=== PATIENT | male | born 1960 | race Caucasian/White ===

== ENCOUNTER 2018-09-30 09:27 | Observation (INO) | payer OTHER ==
[2018-09-30] VITALS (11 sets, daily range): BP systolic 112–153; BP diastolic 55–72
[~2018-09-30] VITALS: Ht 170.2 cm; Wt 127.0 kg
--- OUTSIDE RECORDS SUMMARY | 2018-09-30 09:29 | XMS REPORT | Clinical Summary ---
Author Author DEVAN [facility] Address Unknown Phone Unavailable Care Team Providers Care Supervisor Metal Hanging Name Role Phone Juwan Tate MD PCP Unavailable Allergies No Known Allergies Medications End Date Status Medication Sig Dispensed Refills Start Date Active atorvastatin (LIPITOR) 40 Take 40 mg by 0 MG tablet mouth daily. Active fenofibrate Take 48 mg by 0 (TRIGLIDE,LOFIBRA) 160 MG mouth daily . tablet Active glimepiride (AMARYL) 4 MG Take 4 mg by 0 tablet mouth 2 (two) times daily. Active hydrALAZINE (APRESOLINE) Take 100 mg 0 100 MG tablet by mouth 3 (three) times daily . Active labetalol (NORMODYNE) 300 Take 300 mg 0 MG tablet by mouth 2 (two) times daily. Active LIRAGLUTIDE (VICTOZA Inject 1.25 0 SUBQ) Units subcutaneousl y daily. Active aspirin 81 MG EC tablet Take 1 tablet 90 tablet 0 (81 mg total) 5 by mouth daily. Active acetaminophen-codeine Take 1 tablet 0 (TYLENOL #3) 300-30 mg by mouth per tablet every 4 (four) hours as needed for Pain. Active cloNIDine (CATAPRES-TTS) Place 1 patch 0 0.3 mg/24 hr patch onto the skin once a week. Active FLUoxetine (PROZAC) 40 MG Take 40 mg by 0 capsule mouth daily. Active isosorbide mononitrate Take 60 mg by 0 (IMDUR) 60 MG 24 hr mouth daily. tablet Active losartan-hydroCHLOROthiaz Take 1 tablet 0 codi (HYZAAR) 100-25 mg by mouth per tablet daily. Active mupirocin (BACTROBAN) 2 % Apply 0 ointment topically 3 (three) times daily. Active nitroglycerin (NITROSTAT) Place 0.4 mg 0 0.4 MG SL tablet under the tongue every 5 (five) minutes as needed for Chest pain Put 1 pill under tongue every 5min as needed for chest pain.No more than 3 doses in 15min.Call 911 if pain is unrelieved 5min after 1st dose . Active polyethylene glycol Take by mouth 0 (GOLYTELY) 236-22.74-6.74 once. -5.86 gram solution Active indomethacin (INDOCIN) 50 Take 50 mg by 0 MG capsuleIndications: mouth daily gout as needed. Active prasugrel (EFFIENT) 10 mg Take 1 tablet 90 tablet 0 Tab tablet (10 mg total) 7 by mouth daily. Active Problems Problem Noted Date Mild single current episode of major depressive disorder 10/11/2016 CKD stage 3 due to type 2 diabetes mellitus 10/11/2016 Recurrent exertional angina 01/25/2015 Abnormal nuclear cardiac imaging test 01-24-2015 01/25/2015 Type 2 diabetes mellitus with hyperlipidemia 01/23/2015 Coronary atherosclerosis 01/23/2015 Overview: UPDATED BY ICD10 SNOMED/IMO UPDATES Essential hypertension, benign 01/23/2015 Chest pain 01/22/2015 Overview: UPDATED BY ICD10 SNOMED/IMO UPDATES Immunizations Name Dates Previously Given Next Due Pneumococcal 01/23/2015 Polysaccharide (Pneumovax) Social History Date Tobacco Use Types Packs/Day Years Used Never Smoker Alcohol Use Drinks/Week oz/Week Comments No Sex Assigned at Date Recorded Not on file Industry Job Start Date Occupation Not on file Not on file Not on file Travel End Travel History Travel Start No recent travel history available. Last Filed Vital Signs Not on file Plan of Treatment Not on file Implants Device Identifier Shelf Expiration Date Model / Serial / Lot Implanted Type [facility] er 06/22/2017 [id number] - 18 / / [id number] Xience Alpine Otw CHEUNG Implanted: Qty: 1 on 01/06/2015 VASCULAR DEVICE Results Not on fileafter 09/29/2017 Insurance Payer Benefit Subscriber ID Type Phone Address Plan / Group CIGNA - MGD CARE CIGNA [facility] xxxxxxxxxxx HMO/POS NETWORK Advance Directives For more information, please contact: [facility] [address] [place] [address] Date Inactivated Comments Code Status Date Activated 01/25/2015 8:40 PM Full Code 01/22/2015 3:28 PM This code status was determined by: Patient 01/08/2015 2:56 PM Full Code 01/07/2015 1:50 AM This code status was determined by: Patient 07/23/2013 7:30 PM All possible means of support, including: cardiac massage, mechanical ventilation, and defibrillation will be used to support life. Code ONE 07/23/2013 9:56 AM
--- OUTSIDE RECORDS SUMMARY | 2018-09-30 09:30 | XMS REPORT ---
Author Author [facility] Address Unknown Phone Unavailable Care Team Providers Care Food Service Manager Name Role Phone Dunia ARIAS Unavailable Unavailable Payers Payer Name Policy Type Policy Number Effective Date Expiration Date Problems This patient has no known problems. Allergies, Adverse Reactions, Alerts Allergy Name Allergy Type Status Severity Reaction(s) Onset Date Inactive Date Treating Clinician Comments No Known Allergies DA Active U 2018-03-05 00:00:00 No Known Allergies DA Active U 2017-10-24 00:00:00 Medications This patient has no known medications. Results Test Description Test Time Test Comments Text Results Atomic Results Result Comments POCT-GLUCOSE METER 2016-10-13 16:49:00 POC-GLUCOSE METER (BEAKER) (test suor=8936) 226 mg/dL 70-110 TESTED AT [address] [address] POCT-GLUCOSE [id number] 13:00:00* Test Item Value Reference Range Comments POC-GLUCOSE METER (BEAKER) (test lgvf=9299) 174 mg/dL 70-110 TESTED AT [address] [address] POCT-GLUCOSE [id number] 09:24:00* Test Item Value Reference Range Comments POC-GLUCOSE METER (BEAKER) (test irwz=9006) 193 mg/dL 70-110 TESTED AT [address] [address] POCT-GLUCOSE [id number] 21:03:00* Test Item Value Reference Range Comments POC-GLUCOSE METER (BEAKER) (test prtc=6013) 164 mg/dL 70-110 TESTED AT [address] [address] POCT-GLUCOSE [id number] 13:24:00* Test Item Value Reference Range Comments POC-GLUCOSE METER (BEAKER) (test ekup=4171) 160 mg/dL 70-[address] [facility] [address] [facility] [address] HEMOGLOBIN [id number] 08:11:00* Test Item Value Reference Range Comments HEMOGLOBIN A1C (BEAKER) (test otvc=825) 9.7 % 4.3-6.1 POCT-GLUCOSE [id number] 07:55:00* Test Item Value Reference Range Comments POC-GLUCOSE METER (BEAKER) (test ifjl=0089) 197 mg/dL 70-[address] [facility] [address] [facility] [address] TSH/FREE T4 IF [id number] 05:37:00* Test Item Value Reference Range Comments THYROID STIMULATING HORMONE (BEAKER) (test enly=089) 1.77 uIU/mL 0.35-4.94 TROPONIN [id number] 05:15:00* Test Item Value Reference Range Comments TROPONIN I (BEAKER) (test dllu=733) 0.01 ng/mL 0.00-0.03 Effective 03/31/2014: Reference Range ChangeNew: 0.00-0.03 Previous 0.00-0.15T roponin I (TnI) levels must be interpreted in the context of the presenting symp toms and the clinical findings. Elevated TnI levels indicate myocardial damage, but are not specific for ischemic heart disease. Elevated TnI levels are seen in patients with other cardiac conditions (including myocarditis and congestive he art failure), and slight TnI elevations occur in patients with other conditions, including sepsis, renal failure, acidosis, acute neurological disease, and pers istent tachyarrhythmia.COMPREHENSIVE METABOLIC [id number] 05:14:00* Test Item Value Reference Range Comments TOTAL PROTEIN (BEAKER) (test zjpz=902) 5.8 gm/dL 6.0-8.3 ALBUMIN (BEAKER) (test bfpi=5751) 3.5 g/dL 3.5-5.0 ALKALINE PHOSPHATASE (BEAKER) (test nclx=632) 61 U/L 40-150 BILIRUBIN TOTAL (BEAKER) (test zcje=496) 0.3 mg/dL 0.2-1.2 SODIUM (BEAKER) (test ucxa=183) 138 meq/L 136-145 POTASSIUM (BEAKER) (test zjip=651) 4.0 meq/L 3.5-5.1 CHLORIDE (BEAKER) (test bzjk=441) 103 meq/L 98-107 CO2 (BEAKER) (test hodb=674) 25 meq/L 22-29 BLOOD UREA NITROGEN (BEAKER) (test nlcn=744) 29 mg/dL 7-21 CREATININE (BEAKER) (test rxdw=462) 1.77 mg/dL 0.57-1.25 GLUCOSE RANDOM (BEAKER) (test nlon=678) 206 mg/dL 70-105 CALCIUM (BEAKER) (test sccy=895) 9.2 mg/dL 8.4-10.2 AST (SGOT) (BEAKER) (test rkgn=639) 54 U/L 5-34 ALT (SGPT) (BEAKER) (test nsij=260) 46 U/L 6-55 EGFR (BEAKER) (test gtmp=5891) 40 mL/min/1.73 sq m ESTIMATED GFR IS NOT ACCURATE CREATININE CLEARANCE IN PREDICTING GLOMERULAR FILTRATION RATE. ESTIMATED GFR IS NOT APPLICABLE FOR DIALYSIS PATIENTS. LIPID [id number] 05:14:00* Test Item Value Reference Range Comments TRIGLYCERIDES (BEAKER) (test peqy=425) 448 mg/dL CHOLESTEROL (BEAKER) (test hjvn=838) 219 mg/dL HDL CHOLESTEROL (BEAKER) (test egvf=648) 26 mg/dL Calculated LDL not valid if triglyceride >400 mg/dLTriglyceride Reference Range: Low Risk <150 Borderline 150-199 High Risk 200-499 Very High Risk >=500Cholesterol Reference Range: Low Risk <200 Borderline 200-239 High Risk >240HDL Cholesterol Reference Range: Low Risk >=60 High Risk <40LDL Cholesterol Reference Range: Optimal <100 Near Optimal 100-129 Borderline 130-159 High 160-189 Very High >=190 CBC W/PLT COUNT & AUTO DIFFERENTIAL 2016-10-12 05:11:00* Test Item Value Reference Range Comments WHITE BLOOD CELL COUNT (BEAKER) (test knyv=660) 6.4 K/ L 4.0-10.0 RED BLOOD CELL COUNT (BEAKER) (test ymlb=079) 4.10 M/ L 4.20-5.80 HEMOGLOBIN (BEAKER) (test dxig=531) 12.6 GM/DL 13.0-16.8 HEMATOCRIT (BEAKER) (test yxfd=434) 37.9 % 40.0-50.0 MEAN CORPUSCULAR VOLUME (BEAKER) (test zqxu=224) 92.3 fL 82.0-98.0 MEAN CORPUSCULAR HEMOGLOBIN (BEAKER) (test rcoj=860) 30.8 pg 27.0-33.0 MEAN CORPUSCULAR HEMOGLOBIN CONC (BEAKER) (test ednx=252) 33.3 GM/DL 32.0-36.0 RED CELL DISTRIBUTION WIDTH (BEAKER) (test iaup=186) 13.1 % 10.3-14.2 PLATELET COUNT (BEAKER) (test qkuf=517) 127 K/CU MM 150-430 MEAN PLATELET VOLUME (BEAKER) (test jwqi=145) 8.6 fL 6.5-10.5 NUCLEATED RED BLOOD CELLS (BEAKER) (test dqaz=576) 0 /100 WBC 0-0 NEUTROPHILS RELATIVE PERCENT (BEAKER) (test szcq=153) 65 % LYMPHOCYTES RELATIVE PERCENT (BEAKER) (test udjb=460) 23 % MONOCYTES RELATIVE PERCENT (BEAKER) (test ktcl=804) 9 % EOSINOPHILS RELATIVE PERCENT (BEAKER) (test kglx=156) 3 % BASOPHILS RELATIVE PERCENT (BEAKER) (test xamv=283) 0 % NEUTROPHILS ABSOLUTE COUNT (BEAKER) (test ktbu=456) 4.20 K/ L 1.80-8.00 LYMPHOCYTES ABSOLUTE COUNT (BEAKER) (test rnqb=432) 1.45 K/ L 1.48-4.50 MONOCYTES ABSOLUTE COUNT (BEAKER) (test hszr=784) 0.58 K/ L 0.00-1.30 EOSINOPHILS ABSOLUTE COUNT (BEAKER) (test tycs=095) 0.16 K/ L 0.00-0.50 BASOPHILS ABSOLUTE COUNT (BEAKER) (test oxwq=790) 0.03 K/ L 0.00-0.20 [id number] 05:06:00* Test Item Value Reference Range Comments PARTIAL THROMBOPLASTIN TIME (BEAKER) (test jbib=710) 24.6 seconds 22.5-36.0 PROTHROMBIN [id number] 05:05:00* Test Item Value Reference Range Comments PROTIME (BEAKER) (test uqrt=023) 14.0 seconds 11.7-14.7 INR (MAL) (test kcqk=768) 1.1 <=5.9 RECOMMENDED COUMADIN/WARFARIN INR THERAPY RANGESSTANDARD DOSE: 2.0 - 3.0 Inclu shankar: PROPHYLAXIS for venous thrombosis, systemic embolization; TREATMENT for santo ous thrombosis and/or pulmonary embolus.HIGH RISK: Target INR is 2.5-3.5 for pat ients with mechanical heart valves.CREATINE KINASE (CK), TOTAL AND [id number] 23:26:00* Test Item Value Reference Range Comments CREATINE KINASE TOTAL (MAL) (test lmfh=766) 64 U/L 29-200 CREATINE KINASE-MB (WESLEYAKER) (test util=855) 2.0 ng/mL 0.0-6.6 CREATINE KINASE-MB INDEX (MAL) (test hewq=210) 3.1 % Effective 03/31/2014: CK-MB Reference Range ChangeNew: 0.0-6.6 Previous: 0.0- 4.9CK-MB Reference Range:<6.7 Normal6.7-10.0 Borderline>10.0 Abnormal TROPONIN [id number] 23:26:00* Test Item Value Reference Range Comments TROPONIN I (MAL) (test acoo=054) 0.01 ng/mL 0.00-0.03 Effective 03/31/2014: Reference Range ChangeNew: 0.00-0.03 Previous 0.00-0.15T roponin I (TnI) levels must be interpreted in the context of the presenting symp toms and the clinical findings. Elevated TnI levels indicate myocardial damage, but are not specific for ischemic heart disease. Elevated TnI levels are seen in patients with other cardiac conditions (including myocarditis and congestive he art failure), and slight TnI elevations occur in patients with other conditions, including sepsis, renal failure, acidosis, acute neurological disease, and pers istent tachyarrhythmia.POCT-GLUCOSE [id number] 21:08:00* Test Item Value Reference Range Comments POC-GLUCOSE METER (MAL) (test gyaw=5449) 158 mg/dL 70-[address] [facility] [address] [facility] [address] CREATINE KINASE (CK), TOTAL AND [id number] 18:27:00* Test Item Value Reference Range Comments CREATINE KINASE TOTAL (BEAKER) (test auph=253) 69 U/L 29-200 CREATINE KINASE-MB (BEAKER) (test xmuf=910) 2.0 ng/mL 0.0-6.6 CREATINE KINASE-MB INDEX (BEAKER) (test yqzn=705) 2.9 % Effective 03/31/2014: CK-MB Reference Range ChangeNew: 0.0-6.6 Previous: 0.0- 4.9CK-MB Reference Range:<6.7 Normal6.7-10.0 Borderline>10.0 Abnormal TROPONIN [id number] 18:27:00* Test Item Value Reference Range Comments TROPONIN I (BEAKER) (test appg=878) 0.01 ng/mL 0.00-0.03 Effective 03/31/2014: Reference Range ChangeNew: 0.00-0.03 Previous 0.00-0.15T roponin I (TnI) levels must be interpreted in the context of the presenting symp toms and the clinical findings. Elevated TnI levels indicate myocardial damage, but are not specific for ischemic heart disease. Elevated TnI levels are seen in patients with other cardiac conditions (including myocarditis and congestive he art failure), and slight TnI elevations occur in patients with other conditions, including sepsis, renal failure, acidosis, acute neurological disease, and pers istent tachyarrhythmia.B-TYPE NATRIURETIC FACTOR (BNP)2016-10-11 18:27:00* Test Item Value Reference Range Comments B-TYPE NATRIURETIC PEPTIDE (BEAKER) (test xndc=056) 34 pg/mL 0-100 [id number] 18:21:00* Test Item Value Reference Range Comments MAGNESIUM (BEAKER) (test fouc=216) 1.7 mg/dL 1.6-2.6 Specimen slightly hemolyzed BASIC METABOLIC [id number] 18:21:00* Test Item Value Reference Range Comments SODIUM (BEAKER) (test nlwi=481) 140 meq/L 136-145 POTASSIUM (BEAKER) (test azce=965) 4.2 meq/L 3.5-5.1 Specimen slightly hemolyzed CHLORIDE (BEAKER) (test qqmz=255) 104 meq/L 98-107 CO2 (BEAKER) (test njvg=928) 23 meq/L 22-29 BLOOD UREA NITROGEN (BEAKER) (test pytf=015) 26 mg/dL 7-21 CREATININE (BEAKER) (test gayo=173) 1.68 mg/dL 0.57-1.25 Specimen slightly hemolyzed GLUCOSE RANDOM (BEAKER) (test hkfk=300) 129 mg/dL 70-105 CALCIUM (BEAKER) (test aouz=782) 9.7 mg/dL 8.4-10.2 EGFR (BEAKER) (test aakg=0368) 42 mL/min/1.73 sq m ESTIMATED GFR IS NOT ACCURATE CREATININE CLEARANCE IN PREDICTING GLOMERULAR FILTRATION RATE. ESTIMATED GFR IS NOT APPLICABLE FOR DIALYSIS PATIENTS. PT/[id number] 18:13:00* Test Item Value Reference Range Comments PROTIME (BEAKER) (test ylrf=892) 13.0 seconds 11.7-14.7 INR (BEAKER) (test lwlf=663) 1.0 <=5.9 PARTIAL THROMBOPLASTIN TIME (BEAKER) (test wdxv=393) 25.7 seconds 22.5-36.0 RECOMMENDED COUMADIN/WARFARIN INR THERAPY RANGESSTANDARD DOSE: 2.0 - 3.0 Inclu shankar: PROPHYLAXIS for venous thrombosis, systemic embolization; TREATMENT for santo ous thrombosis and/or pulmonary embolus.HIGH RISK: Target INR is 2.5-3.5 for pat ients with mechanical heart valves.CBC W/PLT COUNT & AUTO [id number] 18:02:00* Test Item Value Reference Range Comments WHITE BLOOD CELL COUNT (BEAKER) (test kzcd=913) 7.6 K/ L 4.0-10.0 RED BLOOD CELL COUNT (BEAKER) (test stef=810) 4.60 M/ L 4.20-5.80 HEMOGLOBIN (BEAKER) (test eejc=367) 13.5 GM/DL 13.0-16.8 HEMATOCRIT (BEAKER) (test ttdb=146) 42.1 % 40.0-50.0 MEAN CORPUSCULAR VOLUME (BEAKER) (test iuwf=671) 91.4 fL 82.0-98.0 MEAN CORPUSCULAR HEMOGLOBIN (BEAKER) (test gnqs=031) 29.4 pg 27.0-33.0 MEAN CORPUSCULAR HEMOGLOBIN CONC (BEAKER) (test zqbi=467) 32.1 GM/DL 32.0-36.0 RED CELL DISTRIBUTION WIDTH (BEAKER) (test lozs=011) 14.8 % 10.3-14.2 PLATELET COUNT (BEAKER) (test zyrl=535) 142 K/CU MM 150-430 MEAN PLATELET VOLUME (BEAKER) (test vkkd=734) 8.3 fL 6.5-10.5 NUCLEATED RED BLOOD CELLS (BEAKER) (test czmj=666) 0 /100 WBC 0-0 NEUTROPHILS RELATIVE PERCENT (BEAKER) (test tnqn=464) 64 % LYMPHOCYTES RELATIVE PERCENT (BEAKER) (test lllw=635) 25 % MONOCYTES RELATIVE PERCENT (BEAKER) (test wylp=442) 9 % EOSINOPHILS RELATIVE PERCENT (BEAKER) (test fbln=184) 2 % BASOPHILS RELATIVE PERCENT (BEAKER) (test pnrt=925) 1 % NEUTROPHILS ABSOLUTE COUNT (BEAKER) (test bles=560) 4.85 K/ L 1.80-8.00 LYMPHOCYTES ABSOLUTE COUNT (BEAKER) (test lzxw=097) 1.91 K/ L 1.48-4.50 MONOCYTES ABSOLUTE COUNT (BEAKER) (test jkgw=454) 0.66 K/ L 0.00-1.30 EOSINOPHILS ABSOLUTE COUNT (BEAKER) (test mgvf=655) 0.17 K/ L 0.00-0.50 BASOPHILS ABSOLUTE COUNT (BEAKER) (test sdlw=327) 0.05 K/ L 0.00-0.20 0.00
[2018-09-30] MEDS ORDERED: ASPIRIN 81 MG CHEW TAB PO STA (10:06)
[2018-09-30] MEDS ORDERED: ASPIRIN 81 MG CHEW TAB PO ONE ×2 (10:15→17:15)
[2018-09-30] MEDS ORDERED: SODIUM CHLORIDE 0.9% 1000ML 1,000 ML ONE ×2 (10:29→17:37)
[2018-09-30 10:30] LABS: BASOPHILS % 0.5 % (0.0-1.0); EOSINOPHILS # (AUTO) 0.2 (0.0-0.4); HEMATOCRIT 38.2 % (38.2-49.6); HEMOGLOBIN 12.6 g/dL (14.0-18.0); LYMPHOCYTES # (AUTO) 1.1 (1.0-3.2); LYMPHOCYTES % 11.9 % (18.0-39.1); MEAN CORPUSCULAR HEMOGLOBIN 29.6 pg (28-32); MEAN CORPUSCULAR VOLUME 89.7 fL (81-99); MONOCYTES # (AUTO) 0.7 (0.2-0.8); MONOCYTES % 8.3 % (4.4-11.3); NEUTROPHILS # (AUTO) 6.7 (2.1-6.9); NEUTROPHILS % 76.4 % (38.7-80.0); PLATELET COUNT 195 x10e3/uL (140-360); RED BLOOD COUNT 4.26 x10e6/uL (4.3-5.7); RED CELL DISTRIBUTION WIDTH 14.8 % (11.7-14.4)
[2018-09-30 10:40] LABS: INR 1.05; PROTHROMBIN TIME 14.2 seconds (11.9-14.5)
[2018-09-30 10:41] LABS: PARTIAL THROMBOPLASTIN TIME 26.5 seconds (23.8-35.5)
[2018-09-30] MEDS ORDERED: SODIUM CHLORIDE 0.9% 1000ML 1,000 ML IV ONE (10:45)
--- NOTE | 2018-09-30 11:01 | Diagnostic Imaging Report ---
EXAMINATION: CHEST SINGLE (PORTABLE) INDICATION: Chest pain. COMPARISON: None FINDINGS: TUBES and LINES: None. LUNGS: Lungs are well inflated. There is no evidence of pneumonia or pulmonary edema. Calcified granulomas in the right lung. PLEURA: No pleural effusion or pneumothorax. HEART AND MEDIASTINUM: The cardiomediastinal silhouette is unremarkable. BONES AND SOFT TISSUES: No acute osseous abnormality. UPPER ABDOMEN: No free air under the diaphragm. IMPRESSION: No acute radiographic abnormality. Signed by: Dr. Pablo Kelly MD on 09/30/2018 10:58 AM
[2018-09-30 11:17] LABS: ALBUMIN 3.3 g/dL (3.5-5.0); ALBUMIN/GLOBULIN RATIO 1.3 (0.8-2.0); ANION GAP 14.1 mmol/L (8-16); CALCIUM 8.6 mg/dL (8.4-10.2); CREATININE, SERUM 2.61 mg/dL (0.72-1.25); POTASSIUM 4.1 mmol/L (3.5-5.1)
[2018-09-30 11:23] LABS: CREATINE KINASE MB 1.6 ng/mL (0-5.0)
[2018-09-30] MEDS: SODIUM CHLORIDE 0.9% 1000ML 1,000 ML IV SCH ×2 (12:02→13:34)
[2018-09-30] MEDS ORDERED: DEXTROSE 50% SYRINGE 50 ML IV PRN (12:45)
[2018-09-30] MEDS ORDERED: ONDANSETRON HCL INJ 2MG/ML 2ML 2 MG/ML VIAL IV PRN ×2 (12:45→18:45)
[2018-09-30] MEDS ORDERED: NITROGLYCERIN 0.4 MG SUBL SL PRN (12:45)
[2018-09-30] MEDS ORDERED: MORPHINE SULFATE INJ 4 MG/ML INJ 1ML IV PRN (12:45)
[2018-09-30] MEDS: FAMOTIDINE 20 MG TAB PO SCH ×2 (13:06→23:26)
--- OUTSIDE RECORDS SUMMARY | 2018-09-30 13:27 | XMS REPORT | Clinical Summary ---
Author Author DEVAN [facility] Address Unknown Phone Unavailable Care Team Providers Care Formulator Compounder Name Role Phone Juwan Tate MD PCP [...] Lot Implanted Type [facility] er 06/22/2017 [id number] - 18 / / [id number] [employer]ience [employer]pine Otw CHEUNG Implanted: Qty: 1 on 01/06/2015 VASCULAR DEVICE Results Not on fileafter 09/29/2017 Insurance Payer Benefit Subscriber ID Type Phone Address Plan / Group [employer] - MGD CARE C[employer] [facility] xxxxxxxxxxx HMO/POS NETWORK Advance Directives For more information, please contact: [facility] [address] [place] [address] Date Inactivated Comments Code Status [...]
--- NOTE | 2018-09-30 14:05 | NUR ---
Recvd patient from ER. AAOx3, not in any distress, c/o mild chest pressure still rating 2/10, denies any SOB, Call light in reach, at bed side, keep monitoring
[2018-09-30] MEDS: INSULIN LISPRO 100 UNIT/1 ML 3ML VIAL SQ SCH ×2 (16:30→21:00)
[2018-09-30] MEDS ORDERED: INSULIN LISPRO 100 UNIT/1 ML 3ML VIAL SQ SCH (16:30)
[2018-09-30] MEDS ORDERED: SODIUM CHLORIDE 0.9% 1000ML 1,000 ML IV SCH ×2 (17:15→18:38)
[2018-09-30] MEDS ORDERED: MIDAZOLAM HCL 2 MG/2 ML VIAL ONE (17:36)
[2018-09-30] MEDS ORDERED: FENTANYL CITRATE/PF 100MCG/2 ML INJ ONE (17:36)
[2018-09-30] MEDS ORDERED: LIDOCAINE HCL 2% LOCAL 20 ML VIAL ONE (17:36)
[2018-09-30] MEDS ORDERED: HEPARIN SOD/SOD CHLORIDE 2,000 ML ONE (17:37)
[2018-09-30] MEDS ORDERED: IOPAMIDOL 370 MG/ML 200 ML INFUS..BTL INJ ONE (17:37)
[2018-09-30 17:59] LABS: BASOPHILS % 0.3 % (0.0-1.0); EOSINOPHILS # (AUTO) 0.2 (0.0-0.4); EOSINOPHILS % 2.2 % (0.0-6.0); HEMATOCRIT 35.3 % (38.2-49.6); HEMOGLOBIN 11.7 g/dL (14.0-18.0); LYMPHOCYTES # (AUTO) 1.5 (1.0-3.2); LYMPHOCYTES % 22.7 % (18.0-39.1); MEAN CORPUSCULAR HGB CONC 33.1 g/dL (31-35); MEAN CORPUSCULAR VOLUME 90.5 fL (81-99); MONOCYTES # (AUTO) 0.6 (0.2-0.8); NEUTROPHILS # (AUTO) 4.4 (2.1-6.9); NEUTROPHILS % 65.1 % (38.7-80.0); PLATELET COUNT 146 x10e3/uL (140-360); RED CELL DISTRIBUTION WIDTH 14.9 % (11.7-14.4)
[2018-09-30] MEDS ORDERED: NITROGLYCERIN/D5W 200 MCG/ML 250 ML ONE (17:59)
[2018-09-30] MEDS ORDERED: HEPARIN SOD (PORCINE) 1000 UNIT/ML 30ML ONE (17:59)
[2018-09-30] MEDS ORDERED: VERAPAMIL HCL 2.5 MG/ML 2 ML VIAL ONE (18:00)
[2018-09-30 18:15] LABS: ALBUMIN 3.1 g/dL (3.5-5.0); ALBUMIN/GLOBULIN RATIO 1.2 (0.8-2.0); CALCIUM 8.2 mg/dL (8.4-10.2); CREATININE, SERUM 2.09 mg/dL (0.72-1.25)
[2018-09-30] MEDS ORDERED: SODIUM CHLORIDE 0.9% 50ML 50 ML ONE (18:15)
[2018-09-30] MEDS ORDERED: BIVALRIUDIN 250 MG/VIAL VIAL IV ONE (18:15)
[2018-09-30 18:20] LABS: CREATINE KINASE 82 IU/L (30-200)
[2018-09-30] MEDS ORDERED: ASPIRIN 81 MG CHEW TAB ONE (18:32)
[2018-09-30] MEDS ORDERED: PRASUGREL 10 MG TAB ONE (18:32)
--- NOTE | 2018-09-30 18:40 | NUR ---
Continuity of care, transition to recovery from procedure , review of procedural findings and medications given. Patient drowsy, easily aroused. maintains airway and room air saturations of 94-96%. No gross issues of pressure, pain, pallor or dysrhythmia. IV site patent with NS 0.9% at 150ml/hr by dial-flow. patient hemodynamically stable with hemostasis. right radial w/ TR band @ 15ml to bladder. CDI w/o s/s of bleeding. patient transferred to stretcher under own strength w/o incident. transported to [facility] holding ACU 10. Pt has CATIA, will continue to apply oxygen. family brought to bedside - [facility] procedure: Coronary stent left main Sheath puller: Dr. Chelle Aquino TR band Large w/ 15ml air to bladder Meds Given Intra-Procedure Sedatives Versed - 2 mg Fentanyl - 25 mcg Anticoagulants Angiomax - 15ml (75mg) as a single bolus, no gtt Radial Cocktail Heparin 3000 units IA Nitro 200mcg IA Verapamil 2.5mg IA Fluids Input - 350 ml Output - dtv Contrast Isovue 370 - 90ml Other Meds Effient 30mg PO Aspirin 81mg PO
[2018-09-30] MEDS ORDERED: ZOLPIDEM TARTRATE 5 MG TAB PO PRN (18:45)
[2018-09-30] MEDS ORDERED: HYDROCODONE/APAP 5MG-325MG TAB PO PRN (18:45)
--- NOTE | 2018-09-30 19:50 | NUR ---
3 ml removed from TR band. Pt continues to rest w/ eyes closed and snoring. observe saturations fluctuate from 78-100% while on 4L/nc with irregular respirations. at bedside confirms pt has sleep apnea and this is "normal". no gross distress
--- NOTE | 2018-09-30 20:00 | NUR ---
3 ml removed from TR band.
--- NOTE | 2018-09-30 20:10 | NUR ---
3 ml removed from TR band.
--- NOTE | 2018-09-30 20:20 | NUR ---
3 ml removed from TR band.
--- NOTE | 2018-09-30 20:35 | NUR ---
TR band removed. Dressing applied. Radial brace reapplied to minimize sleep while sleeping per patient request. + neurovascular function to right hand.
--- NOTE | 2018-09-30 20:45 | NUR ---
Pt meets DC criteria. right radial assessed for s/s of complication and presence of hematoma. right arm warm, dry, no discolor, and pulses present. IV 18g remains patent to right AC area. VS WNL x/ for CATIA patterns identified. Pt denies pain, sob, or need at this time. Family at bedside. Review of orders and plan of care. verbalized understanding. Pt to room 198 on bed being monitored. Report provided to Higinio GAMBINO. Review of body systems on arrival. pt appropriate. right radial remains intact. family at bedside. transfer of care. - cgf
[2018-09-30] MEDS ORDERED: ATORVASTATIN 20 MG TAB PO SCH ×2 (21:00)
[2018-09-30] MEDS ORDERED: ATORVASTATIN 40 MG TAB PO SCH (21:00)
[2018-09-30] MEDS ORDERED: METOPROLOL TARTRATE 25 MG TAB PO SCH (21:00)
--- NOTE | 2018-09-30 21:30 | NUR ---
patient came from pacu, with hospital bed, patient eyes closed but able to answer questions, on bed side, no distress noted, vitals checked, right wrist dressing checked, no s/s of bleeding. will continue to monitor.
--- NOTE | 2018-09-30 21:45 | NUR ---
called and spoke with dr Palacios, made him aware patient is in IMCU and the MD agreed to resume patient's meds and diet.
[2018-09-30] MEDS: HEPARIN SOD (PORCINE) 5,000 UNIT/ML VIAL SC SCH (21:50)
--- NOTE | 2018-09-30 22:26 | NUR ---
per reports, patient is using CPAP at home and was also confirmed by the patient and , but he refused CPAP when Rt was trying to put him on in prior sleeping.
--- NOTE | 2018-09-30 23:27 | NUR ---
patient awaken to take pepcid PO, he still refused to have CPAP on, he stated "my will bring CPAP from home."
[2018-10-01 00:05] VITALS: BP 172/77
--- NOTE | 2018-10-01 00:20 | Consultation ---
DATE OF CONSULTATION: 09/30/2018 Cardiac consultation. REASON FOR CONSULTATION: Unstable coronary syndrome, pending myocardial infarction. HISTORY: A 58-year-old gentleman, who is known with obesity, diabetes mellitus with end-organ damage, chronic renal insufficiency, hypertension, severe on multiple medication, chronic renal insufficiency, coronary artery disease. The patient in 2014 had PCI to be followed by myocardial infarction and redo PCI. He is followed in [facility] by Dr. Christie. He told me probably seven months ago his stress test was okay. However, the patient having typical exertional chest pressure, chest tightness for the last few months. Progressively worse for the last three weeks, just doing minimal activity, will have him to have severe chest pain with diaphoresis. Yesterday, he was not doing well. He had some nausea, vomiting with this chest pressure, chest tightness and had to lose bowel movement. Today, he went to work. He cannot do anything. He just moving everything and everything is heavy in his chest. The pain was very prolonged repetitive. He came to the emergency room. Lab at 10 o'clock showed normal cardiac enzymes. BUN at 31, creatinine of 2.6. The patient continued to have severe chest pressure, chest tightness. In view of that, urgent cardiac consultation is obtained. The patient is seen and evaluated approximately at 5:30 p.m. He is still having this severe chest pain. The patient describes typical symptoms of acute coronary syndrome, pending myocardial infarction possible or any myocardial infarction. His EKG showing ST-segment depression in several leads. Cardiac perez, the patient definitely having typical symptoms with diaphoresis, etc. He does have sleep apnea. He does have easy fatigability, shortness of breath and chest pressure on minimal activity. REVIEW OF SYSTEMS: Extensive to all systems, will be summarized for clarity. GENERAL: No fever, no chills. HEENT: Unremarkable. PULMONARY AND CARDIAC: As per acute illness. No recent travel. GASTROINTESTINAL: Bloating indigestion. Yesterday he had nausea, vomiting with the pain and he had two episodes of loose bowel movement. GENITOURINARY: The patient is noted to have chronic renal insufficiency. MUSCULOSKELETAL: Back pain, knee pain. NEUROLOGICAL: Tingling and numbness of the lower extremities. HOME MEDICATION: Very lengthy list. He does not have it on him including nifedipine, losartan, labetalol, hydralazine, insulin 120 unit Lantus and sliding scale, Lasix, and several other medications. ALLERGIES: NONE. PAST MEDICAL HISTORY: 1. Coronary artery disease status post myocardial infarction following PCI in 2014 and subsequently fixing this problem followed in [facility]. 2. Diabetes mellitus with end-organ damage. 3. Chronic renal insufficiency followed by Dr. Wheeler. 4. Hypertension. 5. Obesity. 6. All other health problem mentioned above. LABORATORY DATA: The patient's lad date is reviewed. BUN of 31, creatinine of 2.6. BNP is normal. White blood cell count of 8.8, hemoglobin 12.8, hematocrit 38%, platelet count of 195,000. IMPRESSION AND PLAN: 1. Acute coronary syndrome, possible [id number] myocardial infarction. 2. The patient is very unstable. 3. Diabetes mellitus with end-organ damage. 4. Chronic renal insufficiency. 5. Hyperlipidemia. 6. Morbid obesity. The patient will be taken urgently to the car barn laborer. Procedure risks, benefits, alternatives are discussed and explained. MD RAZA Cox/MODL /[id number]
[2018-10-01 00:42] VITALS: BP 159/73
--- NOTE | 2018-10-01 01:20 | Operative Report ---
DATE OF PROCEDURE: 09/30/2018 SURGEON: Heidi Aquino MD PROCEDURE PERFORMED: 1. Left heart cardiac catheterization, coronary angiography. 2. Percutaneous coronary intervention with drug-eluting stent placement to the culprit mid LAD. INDICATION FOR PROCEDURE: A 58-year-old gentleman, morbidly obese, hypertension, hypercholesteremia, coronary artery disease with prior history of PCI and stenting, as well as prior MS, who had outpatient abnormal stress test within the past year, who presents to this institution with class 4 angina occurring starting at work today and up on history, the patient continued to have low-level chest pressure tightness, heaviness, and has been having stuttering escalating angina over the past week. Due to ongoing chest pain symptoms, the patient was taken urgently to the cardiac catheterization laboratory. DESCRIPTION OF PROCEDURE: After risks, benefits, pros and cons to this procedure were explained, the patient agreed to proceed. The patient was brought to cardiac catheterization laboratory. The right wrist was prepped and draped in usual sterile fashion. Preprocedure Barbeau and Charles's tests were noted to be normal. 1% lidocaine solution was used to numb the right wrist region and access of the right radial artery was obtained and a 6-[place]ozamb[place] Terumo slender sheath was placed. Intra-arterial verapamil 2.5 mg and nitroglycerin 200 mcg were given through the sheath as well as 3000 units of intra-arterial heparin. We initially went up with a 5-Mozambican Blauvelt 4.0 diagnostic catheter and supported with a Gloria wire, we were able to again get into the aortic root. Selective coronary angiography of [place] right coronary artery was performed as well as hemodynamic assessment of ventricular filling pressures. After noting 95% hazy of the LAD lesion, which is clearly the culprit artery, we decided to proceed with intervention. We utilized an exchange 0.035 J-wire and went in with a 6-[place]ozamb[place] XB 3.5 guiding catheter with side holes. IV Angiomax bolus was given for systemic anticoagulation. Utilizing a 180 cm 0.014 Runthrough wire, we were able to successfully cross into the apical LAD way past the lesion. Next, we pre-dilated the lesion with a 2.5 x 15 mm Trek balloon for 14 atmospheres of pressure for 40 seconds. Then we took a Resolute Chon 3.0 x 26 mm drug-eluting stent and deployed it up to 17 atmospheres of pressure. Final angiography revealed 0% residual stenosis and improvement of flow from JEREMÍAS-2 to JEREMÍAS-3 and no complications. At the conclusion of the case, the guiding catheters were removed. The J-wire and a Terumo TR band was successfully deployed utilizing patent hemostasis technique. COMPLICATIONS: None. ESTIMATED BLOOD LOSS: Minimal. FINDINGS: 1. Left main is angiographically normal. It gives rise to an LAD, very small ramus intermedius and circumflex branch. 2. The LAD has a high takeoff of first diagonal branch with a proximal stent that is widely patent. The mid LAD has a thrombotic hazy 95% stenosis and is clearly the culprit lesion. 3. Left circumflex artery terminates into a moderate-sized marginal branch. There is a 40% mid circumflex artery stenosis. 4. RCA is dominant and gives rise to right PDA and right PLV branch. There is a 40% long disease segment in mid right RCA and a 50% proximal right PDA stenosis. 5. Left ventricular end-diastolic pressure is 22 mmHg and a significant LV to aortic pullback gradient. INTERVENTION SUMMARY: Successful treatment of the 95% hazy thrombotic mid LAD lesion with implantation of a Resolute [place] 3.0 x 26 mm drug-eluting stent, resulting in 0% residual stenosis and improvement in the flow from JEREMÍAS-2 to JEREMÍAS-3 and no complications. PLAN/RECOMMENDATIONS: 1. Aspirin and Effient therapy. 2. Statin therapy. 3. Aggressive risk factor modification and medical therapy. 4. Removal of TR band in approximately 2 hours. 5. Aggressive IV fluid and hydration post procedure. 6. Overnight hospital stay. MD ALFREDO Lozano/ALEKSANDR /[id number]
[2018-10-01 04:12] VITALS: BP 188/78
--- NOTE | 2018-10-01 04:39 | NUR ---
called and spoke with dr Aquino, made him aware that patient has elevated BP, the MD gave order for Nifedipine. order carried out.
[2018-10-01] MEDS ORDERED: NIFEDIPINE 10 MG CAP PO SCH (05:00)
[2018-10-01 05:02] LABS: BASOPHILS % 0.5 % (0.0-1.0); EOSINOPHILS # (AUTO) 0.2 (0.0-0.4); EOSINOPHILS % 3.3 % (0.0-6.0); HEMATOCRIT 37.3 % (38.2-49.6); HEMOGLOBIN 11.7 g/dL (14.0-18.0); LYMPHOCYTES # (AUTO) 1.8 (1.0-3.2); LYMPHOCYTES % 27.6 % (18.0-39.1); MEAN CORPUSCULAR HEMOGLOBIN 28.9 pg (28-32); MEAN CORPUSCULAR HGB CONC 31.4 g/dL (31-35); MEAN CORPUSCULAR VOLUME 92.1 fL (81-99); MONOCYTES # (AUTO) 0.7 (0.2-0.8); MONOCYTES % 10.3 % (4.4-11.3); NEUTROPHILS # (AUTO) 3.7 (2.1-6.9); NEUTROPHILS % 57.8 % (38.7-80.0); PLATELET COUNT 138 x10e3/uL (140-360); RED BLOOD COUNT 4.05 x10e6/uL (4.3-5.7); RED CELL DISTRIBUTION WIDTH 14.7 % (11.7-14.4)
[2018-10-01 05:35] LABS: ALBUMIN 3.1 g/dL (3.5-5.0); ALBUMIN/GLOBULIN RATIO 1.2 (0.8-2.0); ANION GAP 10.3 mmol/L (8-16); CALCIUM 8.7 mg/dL (8.4-10.2); CREATININE, SERUM 1.69 mg/dL (0.72-1.25); POTASSIUM 4.3 mmol/L (3.5-5.1)
[2018-10-01 05:45] VITALS: BP 141/76
[2018-10-01 06:42] LABS: CREATINE KINASE MB 1.7 ng/mL (0-5.0)
--- NOTE | 2018-10-01 06:59 | NUR ---
bedside reports given to upcoming nurse, patient is awaken, answers questions and no distress at this time.
[2018-10-01 07:00] VITALS: BP 169/85
--- NOTE | 2018-10-01 07:20 | NUR ---
Pt received from previous shift resting in bed. Alert and oriented x4 with saline lock patent to right AC receiving IV fluids as ordered. Pt with right radial immobilizer due to LHC. Oriented to staff and surrounding. Advised to press call mendiola if help needed. Will monitor
[2018-10-01] MEDS: INSULIN LISPRO 100 UNIT/1 ML 3ML VIAL SQ SCH ×2 (07:30→11:08)
--- NOTE | 2018-10-01 08:35 | NUR ---
All meds given as ordered. Call mendiola within reach. Emotional support given. Will monitor
[2018-10-01] MEDS: HEPARIN SOD (PORCINE) 5,000 UNIT/ML VIAL SC SCH (08:37)
[2018-10-01] MEDS ORDERED: METOPROLOL TARTRATE 25 MG TAB PO SCH (09:00)
[2018-10-01] MEDS ORDERED: PRASUGREL 10 MG TAB PO SCH ×2 (09:00)
[2018-10-01] MEDS ORDERED: NIFEDIPINE CR 30 MG TAB PO SCH (09:00)
[2018-10-01] MEDS ORDERED: ASPIRIN 81 MG ENTERIC COATED PO SCH (09:00)
[2018-10-01] MEDS ORDERED: COLCRYS0.6 MG PO (09:35)
[2018-10-01] MEDS ORDERED: PANTOPRAZOLE SO40 MG PO (09:35)
[2018-10-01] MEDS ORDERED: ISOSORBIDE MONO30 MG PO (09:35)
[2018-10-01] MEDS ORDERED: LIPITOR20 MG PO (09:35)
[2018-10-01] MEDS ORDERED: FUROSEMIDE10 MG/1 M1 PO (09:35)
[2018-10-01] MEDS ORDERED: BUPROPION XL150 MG PO (09:35)
[2018-10-01] MEDS ORDERED: LOSARTAN POTASS25 MG PO (09:35)
[2018-10-01] MEDS ORDERED: BASAGLAR SQ (09:35)
[2018-10-01] MEDS ORDERED: HYDRALAZINE HCL25 MG PO (09:35)
[2018-10-01] MEDS ORDERED: CYCLOBENZAPRINE10 MG PO (09:35)
[2018-10-01] MEDS ORDERED: EFFIENT10 MG PO (09:35)
[2018-10-01] MEDS ORDERED: CLONIDINE HCL0.3 MG TD (09:35)
[2018-10-01] MEDS ORDERED: GABAPENTIN300 MG PO (09:35)
[2018-10-01] MEDS ORDERED: TIZANIDINE HCL4 MG PO (09:35)
[2018-10-01] MEDS ORDERED: ASPIR 8181 MG (09:35)
[2018-10-01] MEDS ORDERED: NIFEDIPINE ER30 M1 PO (09:35)
[2018-10-01] MEDS ORDERED: LABETALOL HCL200 MG PO (09:35)
[2018-10-01] MEDS ORDERED: ALLOPURINOL300 MG PO (09:35)
[2018-10-01] MEDS ORDERED: DICLOFENAC POTA50 MG PO (09:35)
--- NOTE | 2018-10-01 09:57 | Diagnostic Imaging Report ---
Renal ultrasound. History: Elevated creatinine Discussion: Transverse and longitudinal images of the kidneys were obtained demonstrating normal echogenicities. Left kidney is situated within the pelvis. There is no evidence of hydronephrosis, mass or renal calculus. The right kidney measures 13.3 x 5.3 x 5.6 cm and the left kidney measures 8.6 x 5.2 x 5.4 cm. Maximal cortical thickness on the right side is 2.0 cm and on the left side 1.5 cm. Two dominant cysts are seen on the right side measuring maximal dimension of 1.8 cm in the upper pole and 2.8 cm in the upper pole-mid pole region. There are multiple cysts noted on the left side with the largest in the lower pole measuring 2.7 cm. The urinary bladder is unremarkable with an estimated prevoid volume of 111.81 cc. There is no evidence of free fluid. IMPRESSION: 1. Bilateral renal cysts with out evidence of hydronephrosis. 2. Left pelvic kidney which is small. Signed by: Dr. Oneil Smith DO on 10/01/2018 9:54 AM
[2018-10-01 11:06] VITALS: BP 152/91
[2018-10-01] MEDS ORDERED: ONDANSETRON HCL 4 MG ORAL DISINTEGRATING TAB PO PRN (11:30)
--- NOTE | 2018-10-01 11:53 | NUR ---
Pt given discharge instruction regarding meds, diet, activities, and follow up appointment with PCP & operations management professionals. Pt & family verbalized understanding of teaching. Being seen by Dr. Aquino & Curtis DRIVER. Will follow up
--- NOTE | 2018-10-01 12:27 | NUR ---
Took pt to 's car in wheelchair. Pt left with all belongings
--- NOTE | 2018-10-01 14:08 | Discharge Summary ---
PRIMARY CARE DOCTOR: Dr. Juwan Tate. FINAL DIAGNOSIS: Coronary artery disease status post PCI. SECONDARY DIAGNOSES: 1. Morbid obesity. 2. Stage 3 chronic kidney disease. 3. Hypertension. 4. Diabetes. 5. Dyslipidemia. CONSULTANTS: 1. Dr. Wheeler, Nephrology. 2. Dr. Aquino, Cardiology. PROCEDURES/STUDIES PERFORMED: 1. Echocardiogram shows normal EF. 2. Left heart catheterization with drug-eluting stent to the mid LAD. HISTORY: Per [facility] and P. HOSPITAL COURSE: The patient's history was concerning for acute coronary syndrome/unstable angina. His repeat troponins were negative. The patient was emergently taken to the laborer tan [facility], where a 95% mid LAD lesion was stented. The patient felt better afterwards. Fortunately, his creatinine remained stable, in fact a little better after hydration. The patient will continue his aspirin, Effient, and a statin along with a beta-gertrudis. The patient was seen and examined today. CONDITION ON DISCHARGE: Improved. DISCHARGE MEDICATIONS: Please see medication reconciliation form. I have updated his primary care doctor about this visit. The patient will follow up with him in a week. Shannenching MD KIRSTIN Duffy/ALEKSANDR /[id number] cc: [facility]
--- NOTE | 2018-10-01 17:10 | Consultation ---
DATE OF CONSULTATION: 10/01/2018 REQUESTING PHYSICIAN: Aure Palacios MD. REASON FOR CONSULTATION: CKD. Thank you for allowing us to participate in Mr. Ag' care. HISTORY OF PRESENT ILLNESS: This is a 58-year-old male came in with acute coronary syndrome with a prior history of percutaneous coronary intervention came with worsening exertional chest pressure, but subsequently became nausea, vomiting, and inability to do anything with persistent heaviness in the chest. He was taken urgently to the lab director. Cardiac lab director yesterday. Coronary angiogram was performed and LAD stent placed. Baseline creatinine usually runs around 2 mg%. He has needed diuretics. Presumed cause is diabetic end-organ damage. PAST MEDICAL HISTORY: CKD stage 3, coronary artery disease, gout, obesity, history of fluid overload, hypertension. HOME MEDICATIONS: Please see list. SOCIAL HISTORY: Does not abuse alcohol or smoke. He is . FAMILY HISTORY: Hypertension. REVIEW OF SYSTEMS: CONSTITUTIONAL: Nausea, vomiting better. CARDIAC: Chest pain is improved. GI. Denies nausea at this point. No diarrhea. MUSCULOSKELETAL: Arthralgias and back pain. NEURO: Feels stronger. Rest of review is negative. PHYSICAL EXAMINATION: GENERAL: Lying in bed, no distress. VITAL SIGNS: Blood pressure 169/85, pulse 80, temperature 97.2. HEENT: Atraumatic. NECK: No JVD. CHEST: Clear. EXTREMITIES: Trace edema. ABDOMEN: Benign. NEUROLOGIC: Alert, appropriate. Speech is normal. LABORATORY DATA: Hemoglobin 12.6, potassium 4.3, sodium 139, creatinine 1.7, BUN 22. ASSESSMENT: Chronic kidney disease stage 3, presumed diabetic end-organ damage, hypertension, not quite at goal, status post coronary artery and LAD stent. PLAN: 1. From renal standpoint, okay to go home, appears to be close to baseline in terms of renal function. 2. Suggest increasing the beta-gertrudis given recent coronary artery syndrome. Once he is more stable, we can add back PANCHITO blockade. 3. Continue to monitor blood pressure at home. Work on weight loss and low salt intake. MD LEW Sherman/ALEKSANDR /[id number]
== END 2018-10-01 12:30 | disposition home or self-care (01) ==
LOC: ER 09:27 → ERHOLD 12:49 → MED/SURG3 13:45 → IMCU 21:09
PROVIDERS: ADMIT Internal Medicine; ATTEND Internal Medicine
DX: I25.110 Atherosclerotic heart disease of native coronary artery with unstable angina pectoris (principal); E78.5 Hyperlipidemia, unspecified; E86.0 Dehydration; I12.9 Hypertensive chronic kidney disease with stage 1 through stage 4 chronic kidney disease, or unspecified chronic kidney disease; E66.01 Morbid (severe) obesity due to excess calories; Z68.41 Body mass index [BMI] 40.0-44.9, adult; Z82.49 Family history of ischemic heart disease and other diseases of the circulatory system; R11.2 Nausea with vomiting, unspecified; R19.7 Diarrhea, unspecified; E78.00 Pure hypercholesterolemia, unspecified; Z95.5 Presence of coronary angioplasty implant and graft; I25.2 Old myocardial infarction; N18.3 Chronic kidney disease, stage 3 (moderate); E11.22 Type 2 diabetes mellitus with diabetic chronic kidney disease; Z79.82 Long term (current) use of aspirin; Z79.4 Long term (current) use of insulin
CPT/HCPCS: 36415 ×2; 71045; 76770; 80053 ×2; 80061; 82150; 82550 ×2; 82553 ×2; 82948 ×2; 83036; 83605; 83690; 83880; 84484 ×2; 85025 ×2; 85610; 85730; 92928; 93005 ×2; 93306; 93454; 96361; 99285; C1766; C1769; C1874; C1887; G0378 ×2; J0583; J1644 ×3; J2001; J2250; J7030 ×2; Q9967; 93458; 96360; C1725

== ENCOUNTER 2018-11-21 06:40 | Emergency (ER) | payer OTHER ==
[~2018-11-21] VITALS: Ht 170.2 cm; Wt 127.0 kg
[~2018-11-21 06:40] MED LIST: ALLOPURINOL300 MG PO; ASPIR 8181 MG; BASAGLAR SQ; BUPROPION XL150 MG PO; CLONIDINE HCL0.3 MG TD; COLCRYS0.6 MG PO; CYCLOBENZAPRINE10 MG PO; DICLOFENAC POTA50 MG PO; EFFIENT10 MG PO; FUROSEMIDE10 MG/1 M1 PO; GABAPENTIN300 MG PO; HYDRALAZINE HCL25 MG PO; ISOSORBIDE MONO30 MG PO; LABETALOL HCL200 MG PO; LIPITOR20 MG PO; LOSARTAN POTASS25 MG PO; NIFEDIPINE ER30 M1 PO; PANTOPRAZOLE SO40 MG PO; TIZANIDINE HCL4 MG PO
--- OUTSIDE RECORDS SUMMARY | 2018-11-21 06:50 | XMS REPORT | Clinical Summary ---
Author Author DEVAN Sikorsky AircraftSt. Luke'[facility] CenterOunce LabsBay[facility] Address Unknown Phone Unavailable Care Team Providers Care Product Safety Tester Name Role Phone Juwan Tate MD PCP [...] / Serial / Lot Implanted Type Area [facility] er 06/22/2017 [id number] - 18 / / [id number] [employer]tw CHEUNG Implanted: Qty: 1 on 01/06/2015 VASCULAR DEVICE Results Not on fileafter 11/20/2017 Insurance Payer Benefit Subscriber ID Type Phone Address Plan / Group [employer] - MGD CARE [employer] xxxxxxxxxxx HMO/POS NETWORK Advance Directives For more information, please contact: [facility] [address] [place] [address] Date Inactivated Comments Code Status [...]
[2018-11-21 07:03] LABS: BASOPHILS % 0.3 % (0.0-1.0); EOSINOPHILS # (AUTO) 0.1 (0.0-0.4); EOSINOPHILS % 1.5 % (0.0-6.0); HEMATOCRIT 38.5 % (38.2-49.6); HEMOGLOBIN 12.6 g/dL (14.0-18.0); LYMPHOCYTES # (AUTO) 2.1 (1.0-3.2); LYMPHOCYTES % 24.6 % (18.0-39.1); MEAN CORPUSCULAR HEMOGLOBIN 29.4 pg (28-32); MEAN CORPUSCULAR HGB CONC 32.7 g/dL (31-35); MONOCYTES # (AUTO) 0.6 (0.2-0.8); MONOCYTES % 6.5 % (4.4-11.3); NEUTROPHILS # (AUTO) 5.8 (2.1-6.9); NEUTROPHILS % 66.9 % (38.7-80.0); PLATELET COUNT 206 x10e3/uL (140-360); RED BLOOD COUNT 4.28 x10e6/uL (4.3-5.7); RED CELL DISTRIBUTION WIDTH 13.9 % (11.7-14.4)
[2018-11-21 07:13] LABS: INR 0.93
[2018-11-21 07:14] LABS: PARTIAL THROMBOPLASTIN TIME 26.5 seconds (23.8-35.5)
[2018-11-21 07:20] LABS: ALANINE AMINOTRANSFERASE 30 IU/L (0-55); ALBUMIN 3.7 g/dL (3.5-5.0); ALBUMIN/GLOBULIN RATIO 1.3 (0.8-2.0); ALKALINE PHOSPHATASE 98 IU/L (40-150); ANION GAP 14.7 mmol/L (8-16); BLOOD UREA NITROGEN 19 mg/dL (7-26); BUN/CREATININE RATIO 11 (6-25); CALCIUM 9.9 mg/dL (8.4-10.2); CARBON DIOXIDE 25 mmol/L (22-29); CHLORIDE 102 mmol/L (98-107); CREATINE KINASE 108 IU/L (30-200); CREATININE, SERUM 1.78 mg/dL (0.72-1.25); EST GLOMERULAR FILTRATION RATE 39 ML/MIN (60-); GLUCOSE 132 mg/dL (74-118); POTASSIUM 3.7 mmol/L (3.5-5.1); SODIUM 138 mmol/L (136-145)
--- NOTE | 2018-11-21 07:26 | NUR ---
DR. ARIZA AT BEDSIDE EVALUATING PATIENT. PATIENT HAS URINAL TO GIVE SAMPLE
[2018-11-21] MEDS ORDERED: BELLADONNA ALK/PHENOBARBITAL 5 ML UDC PO STA (07:37)
[2018-11-21] MEDS ORDERED: SODIUM CHLORIDE 0.9% 1000ML 1,000 ML IV ONE (07:45)
[2018-11-21] MEDS ORDERED: NITROGLYCERIN 2% OINT 1 GM PKT TOP ONE (07:45)
[2018-11-21] MEDS ORDERED: MAGNESIUM/ALUMINUM/SIMETHICONE 30 ML UDC PO ONE (07:45)
[2018-11-21] MEDS ORDERED: LIDOCAINE VISC 2% SOLN 15 ML UDC PO ONE (07:45)
--- NOTE | 2018-11-21 08:11 | Diagnostic Imaging Report ---
Examination: Single AP view of the chest. COMPARISON: 09/30/2018 INDICATION: Chest pain DISCUSSION: The lungs are well-inflated. No focal airspace consolidation, pleural effusion, or pneumothorax. Cardiomediastinal contour and pulmonary vasculature are within normal limits for portable, AP technique. No acute osseous abnormality. IMPRESSION: 1. No acute cardiopulmonary abnormalities. Signed by: Dr. Curtis Meyer M.D. on 11/21/2018 8:07 AM
[2018-11-21 08:57] LABS: BILIRUBIN,URINE NEGATIVE (NEGATIVE); CLARITY,URINE SL CLOUDY (CLEAR); COLOR,URINE YELLOW (YELLOW); KETONES,URINE NEGATIVE (NEGATIVE); LEUKOCYTE ESTERASE ,URINE NEGATIVE (NEGATIVE); NITRITE,URINE NEGATIVE (NEGATIVE); PROTEIN,URINE DIPSTICK 1+ (NEGATIVE); URINE UROBILINOGEN 0.2 mg/dL (0.2 - 1)
[2018-11-21 09:21] LABS: WBC,URINE (MAN) 0-5 /HPF (0-5)
[2018-11-21 09:22] LABS: BACTERIA,URINE MANY /HPF; EPITHELIAL CELLS,URINE RARE /LPF
[2018-11-21 09:57] LABS: AMYLASE 40 U/L (25-125); LIPASE 45 U/L (8-78)
== END 2018-11-21 10:42 | disposition home or self-care (01) ==
LOC: ER 06:40
DX: R07.89 Other chest pain (principal); R11.0 Nausea; R10.13 Epigastric pain; I10 Essential (primary) hypertension; E11.9 Type 2 diabetes mellitus without complications; E78.5 Hyperlipidemia, unspecified; F32.9 Major depressive disorder, single episode, unspecified; K21.9 Gastro-esophageal reflux disease without esophagitis; I25.2 Old myocardial infarction; Z95.5 Presence of coronary angioplasty implant and graft
CPT/HCPCS: 36415; 71045; 80053; 81001; 82150; 82550; 82553; 83690; 83880; 84484; 85025; 85610; 85730; 93005; 99284; J7030

== ENCOUNTER 2019-08-12 18:59 | Observation (INO) | payer OTHER ==
[~2019-08-12] VITALS: Ht 170.2 cm; Wt 127.5 kg
[2019-08-12 19:34] LABS: BASOPHILS # (AUTO) 0.1 (0.0-0.1); BASOPHILS % 0.7 % (0.0-1.0); EOSINOPHILS # (AUTO) 0.8 (0.0-0.4); EOSINOPHILS % 8.7 % (0.0-6.0); HEMATOCRIT 39.2 % (38.2-49.6); LYMPHOCYTES # (AUTO) 1.8 (1.0-3.2); LYMPHOCYTES % 19.1 % (18.0-39.1); MEAN CORPUSCULAR HEMOGLOBIN 29.7 pg (28-32); MEAN CORPUSCULAR HGB CONC 33.2 g/dL (31-35); MEAN CORPUSCULAR VOLUME 89.7 fL (81-99); MONOCYTES # (AUTO) 0.6 (0.2-0.8); MONOCYTES % 6.6 % (4.4-11.3); NEUTROPHILS # (AUTO) 6.2 (2.1-6.9); NEUTROPHILS % 64.4 % (38.7-80.0); PLATELET COUNT 175 x10e3/uL (140-360); RED BLOOD COUNT 4.37 x10e6/uL (4.3-5.7); RED CELL DISTRIBUTION WIDTH 14.6 % (11.7-14.4)
[2019-08-12 19:35] LABS: BILIRUBIN,URINE NEGATIVE (NEGATIVE); CLARITY,URINE SL CLOUDY (CLEAR); COLOR,URINE YELLOW (YELLOW); KETONES,URINE NEGATIVE (NEGATIVE); LEUKOCYTE ESTERASE ,URINE NEGATIVE (NEGATIVE); NITRITE,URINE NEGATIVE (NEGATIVE); PROTEIN,URINE DIPSTICK 2+ (NEGATIVE); URINE UROBILINOGEN 0.2 mg/dL (0.2 - 1)
[2019-08-12 19:39] LABS: INR 0.9; PARTIAL THROMBOPLASTIN TIME 26.5 seconds (23.8-35.5); PROTHROMBIN TIME 12.7 seconds (11.9-14.5)
[2019-08-12 19:46] LABS: AMORPHOUS SEDIMENT,URINE FEW (FEW); BACTERIA,URINE RARE /HPF; EPITHELIAL CELLS,URINE FEW /LPF
[2019-08-12 19:48] LABS: ALANINE AMINOTRANSFERASE 32 IU/L (0-55); ALBUMIN 3.7 g/dL (3.5-5.0); ALBUMIN/GLOBULIN RATIO 1.2 (0.8-2.0); ALKALINE PHOSPHATASE 107 IU/L (40-150); ANION GAP 15.8 mmol/L (8-16); BLOOD UREA NITROGEN 23 mg/dL (7-26); BUN/CREATININE RATIO 13 (6-25); CALCIUM 9.4 mg/dL (8.4-10.2); CARBON DIOXIDE 26 mmol/L (22-29); CHLORIDE 106 mmol/L (98-107); CREATINE KINASE 92 IU/L (30-200); CREATININE, SERUM 1.71 mg/dL (0.72-1.25); EST GLOMERULAR FILTRATION RATE 41 ML/MIN (60-); GLUCOSE 182 mg/dL (74-118); POTASSIUM 3.8 mmol/L (3.5-5.1); SODIUM 144 mmol/L (136-145)
--- NOTE | 2019-08-12 21:03 | Diagnostic Imaging Report ---
EXAMINATION: CHEST 2 VIEWS INDICATION: ^chest pain ^[id number] ^1950. COMPARISON: 11/21/2018. FINDINGS: PA and lateral views TUBES and LINES: None. LUNGS: Lungs are well inflated. There is no evidence of pneumonia or pulmonary edema. PLEURA: No pleural effusion or pneumothorax. HEART AND MEDIASTINUM: The cardiomediastinal silhouette is unremarkable. BONES AND SOFT TISSUES: No acute osseous lesion. Soft tissues are unremarkable. UPPER ABDOMEN: No free air under the diaphragm. IMPRESSION: No acute thoracic abnormality. Signed by: Marco Hagen MD on 08/12/2019 9:00 PM
[2019-08-12] MEDS ORDERED: SODIUM CHLORIDE 0.9% 1000ML 1,000 ML IV SCH (21:15)
[2019-08-12] MEDS ORDERED: SODIUM CHLORIDE 0.9% 50ML 50 ML ONE (22:00)
[2019-08-12] MEDS ORDERED: IOPAMIDOL 370 MG/ML 200 ML INFUS..BTL INJ ONE (22:00)
[2019-08-12] MEDS ORDERED: ASPIRIN 81 MG CHEW TAB PO ONE (22:30)
[2019-08-12] MEDS ORDERED: ONDANSETRON HCL INJ 2MG/ML 2ML 2 MG/ML VIAL IV PRN (22:30)
[2019-08-12] MEDS ORDERED: MORPHINE SULFATE INJ 4 MG/ML INJ 1ML IV PRN (22:30)
--- NOTE | 2019-08-12 22:43 | Diagnostic Imaging Report ---
CT chest with enhancement CPT code: 03457 INDICATION: Right shoulder pain radiating to mid sternum, shortness of breath, diarrhea TECHNIQUE: 2.5 mm collimation axial images obtained from the thoracic inlet to the level of the diaphragm following uneventful administration of 100 cc of low osmolar, nonionic intravenous contrast. RADIATION DOSE: Total DLP: 1196.71 mGy*cm Estimated effective dose: (DLP x 0.015 x size factor) mSv CTDIvol has been reviewed. It is below the limits set by the Radiation Protocol Committee (RPC). Dose reduction techniques used: Automated exposure control, adjustment of the mAs and/or kVp according to patient size, standardized low-dose protocol, and/or iterative reconstruction technique. Comparison: Chest x-ray 08/12/2019. Chest x-ray 11/21/2018 CHEST FINDINGS: Lymph nodes: No enlarged axillary, supraclavicular, mediastinal, or hilar lymph nodes. Thyroid: Visualized portions are normal. Mediastinum: The heart is top normal in size. No pericardial effusion. There are coronary artery calcifications and a suspected stent in the left anterior descending coronary artery. Main pulmonary artery measures 3.8 cm in diameter. The ascending aorta measures 3.7 cm in diameter. No filling defects in the great vessels. The esophagus is collapsed. Lungs: Right Lung: Scattered areas of air trapping. No nodules or infiltrates. Left Lung: Scattered areas of air trapping. Subsegmental atelectasis of the posterior lingula. No nodules or infiltrates Airways: Mild to moderate tracheobronchomalacia. No filling defects. Pleura: No pleural effusion or pleural based mass. Stable eventration of the diaphragms, right greater than left. ABDOMEN: Lobulated hepatic contours suggestive of cirrhosis. There is recanalization of the vein. No splenomegaly. No mass in the visualized portions of the upper abdomen. Bones: Mild degenerative changes of the spine. No focal osseous lesions. IMPRESSION: 1. No evidence of pulmonary embolus or aortic dissection. Prominent main pulmonary artery is suggestive of pulmonary artery hypertension. Recommend further characterization with echocardiogram. 2. Diffuse air trapping and mild to moderate tracheobronchomalacia suggestive of small airways disease. No infiltrates or CT evidence of bronchitis. 3. Lobulated hepatic contours suggestive of cirrhosis. Signed by: Dr. Gerson Ag MD on 08/12/2019 10:40 PM
[2019-08-12 23:00] VITALS: BP 179/82
--- NOTE | 2019-08-12 23:00 | NUR ---
RECEIVED REPORT FROM ER PT C/O OF CHEST PAIN RT SHOULDER AND UPPER CHEST. HS ID [id number]. STENTS X2. PT ALSO REPORT HAD DIARRHEA SINCE SAT. ON TELE. RESPIRATIONS EVEN AND UNLABORED. DENIES PAIN. O2 ON 2l PER N/C. PT WEARS CPAP AT HS AT HOME.NKDA. LBM 08/12/19.CALL LIGHT WITHIN REACH. VOIDING PER URINAL AND ABLE TO WALK TO BATHROOM. NO ASSISTIVE DEVICE NEEDED. BED LOCKED IN LOW POSITION. 20 G PIV IN RT AC.ORIENTED TO PMC, ROOM AND ROUTINE. WILL REVIEW MEDS AND REVIEW WITH IN AM.
[2019-08-12] MEDS ORDERED: SODIUM CHLORIDE 0.9% 1000ML 1,000 ML ONE (23:32)
[2019-08-13] VITALS (12 sets, daily range): BP systolic 133–202; BP diastolic 63–91
[2019-08-13] MEDS: SODIUM CHLORIDE 0.9% 1000ML 1,000 ML IV SCH ×2 (00:01→06:44)
[2019-08-13 05:27] LABS: BASOPHILS % 0.5 % (0.0-1.0); EOSINOPHILS # (AUTO) 0.7 (0.0-0.4); EOSINOPHILS % 9.8 % (0.0-6.0); HEMATOCRIT 37.3 % (38.2-49.6); LYMPHOCYTES # (AUTO) 1.6 (1.0-3.2); LYMPHOCYTES % 21.4 % (18.0-39.1); MEAN CORPUSCULAR HGB CONC 32.2 g/dL (31-35); MEAN CORPUSCULAR VOLUME 90.1 fL (81-99); MONOCYTES # (AUTO) 0.5 (0.2-0.8); MONOCYTES % 6.8 % (4.4-11.3); NEUTROPHILS # (AUTO) 4.6 (2.1-6.9); NEUTROPHILS % 61.1 % (38.7-80.0); PLATELET COUNT 142 x10e3/uL (140-360); RED BLOOD COUNT 4.14 x10e6/uL (4.3-5.7); RED CELL DISTRIBUTION WIDTH 14.3 % (11.7-14.4)
[2019-08-13 05:49] LABS: ALBUMIN 3.4 g/dL (3.5-5.0); ALBUMIN/GLOBULIN RATIO 1.3 (0.8-2.0); ANION GAP 11.8 mmol/L (8-16); CALCIUM 8.8 mg/dL (8.4-10.2); CREATININE, SERUM 1.46 mg/dL (0.72-1.25); POTASSIUM 3.8 mmol/L (3.5-5.1)
[2019-08-13] MEDS ORDERED: SODIUM CHLORIDE 0.9% 1000ML 1,000 ML ONE (06:01)
[2019-08-13 06:21] LABS: CREATINE KINASE 71 IU/L (30-200)
--- NOTE | 2019-08-13 07:38 | NUR ---
paged to notify of [phone]
[2019-08-13] MEDS: HYDRALAZINE HCL 100 MG TABLET PO SCH ×3 (08:36→21:19)
[2019-08-13] MEDS: NIFEDIPINE CR 30 MG TAB PO SCH (08:36)
--- NOTE | 2019-08-13 10:35 | NUR ---
Pt. expressed no spiritual or emotional concerns at this time. Prest[employer] Operator provided hospitality and information on how to reach waitstaff, if needed. No need to follow at this time. AICHA MARIEE [employer] Operator Spiritual Care Department O: [phone]
--- NOTE | 2019-08-13 11:18 | Consultation ---
DATE OF CONSULTATION: 08/13/2019 Cardiac consultation REASON FOR CONSULTATION: Angina, relieved by nitroglycerin. HISTORY: A 59-year-old gentleman who is known with diabetes mellitus with end-organ damage, chronic renal insufficiency, hypertension which is severe on multiple medications, chronic renal insufficiency, and coronary artery disease status post PCI of proximal LAD in 2014 in [facility] and PCI of the LAD at this institution in September 2018. Of note, the 1st PCI was after myocardial infarction and it was done by Dr. Christie. The second was done in this institution by our service and we used a 3 x 26 [place] stent. Since that time, the patient doing relatively well. He is followed by [facility] and he is relatively stable. His baseline creatinine is around 2. Yesterday, he was at store. He was doing physical activity and with that he had severe right shoulder pain, but more importantly severe chest pressure and chest tightness. He took one nitroglycerin with relieve of his symptoms. He checked himself into the hospital. His cardiac enzymes so far are negative. His EKG showed no acute ST-segment changes. There are nonspecific ST changes in multiple leads. The patient does have his usual shortness of breath on exertion and easy fatigability. He does have chest tightness every now and then. He said he had few months back nuclear stress test at [facility] which was fine. REVIEW OF SYSTEMS: Review of system was extensive to all system and will be summarized for clarity. GENERAL: No fever. No chills. HEENT: No vision problem. No hearing problem. PULMONARY: As per acute illness. CARDIAC: As per acute illness. GI: Occasional bloating, indigestion. : No hematuria, no dysuria, history of chronic renal insufficiency. MUSCULOSKELETAL: Back pain and knee pain. NEUROLOGICAL: Peripheral neuropathy symptoms with tingling and numbness of the lower extremities. HOME MEDICATIONS: Aspirin 81 mg a day, Effient 10 mg a day, Lipitor 20 mg a day, clonidine TTS #3 patch, Lasix 20 mg a day, Ismo 120 mg a day, hydralazine 100 mg t.i.d., labetalol 200 mg twice a day, nifedipine 30 mg a day, Protonix, and Basaglar for his diabetes. ALLERGIES: NONE. FAMILY HISTORY: Few family members with coronary artery disease, hypertension, and diabetes mellitus. PHYSICAL EXAMINATION: VITAL SIGNS: Height of 5 feet 7 inches, weight of 281 pounds, blood pressure 190/80, heart rate of 80, and respiratory rate of 18. GENERAL: An obese gentleman, in no acute distress. HEENT: Pupils are equal, reactive. NECK: No elevation of jugular venous pulsation. CHEST: A few crackles. HEART: PMI at 5th left intercostal space. Normal first and second heart sounds. ABDOMEN: Soft with good bowel sounds. EXTREMITIES: No cyanosis, no clubbing, no edema. NEUROLOGIC: Awake, alert, and oriented. No motor or sensory deficits. LABORATORY DATA: Sodium of 142, potassium 3.8, BUN of 21, and creatinine of 1.7. White blood cell count of 7.5, hemoglobin 12, hematocrit 37%, and platelet count of 142,000. EKG, nonspecific ST changes. Chest x-ray by report showed no volume overload. CT scan showed possible liver cirrhosis, pulmonary hypertension, and COPD changes. IMPRESSION AND PLAN: 1. Angina, unstable in patient who is known with coronary artery disease, status post PCI twice in 2014 for myocardial infarction at [facility] and in 2018 at this institution for subtotal mid LAD, successfully treated with 3 x 26 drug stent. 2. Severe hypertension. 3. Diabetes mellitus, severe end organ damage including renal, peripheral neuropathy. 4. Chronic renal insufficiency with baseline creatinine approximately at 2. 5. Obesity. 6. Liver cirrhosis by CT scan. 7. Chronic obstructive pulmonary disease by CT scan. Cardiac perez, since enzymes are negative, we would proceed with a nuclear stress test. We will get an echocardiogram. We will continue medication. Case discussed and explained to the patient. Questions are answered. MD RAZA Cox/MODL /[id number]
--- NOTE | 2019-08-13 11:50 | NUR ---
aware of BP 202/91. See orders
[2019-08-13] MEDS: ISOSORBIDE MONONITRATE 30 MG TAB CR PO SCH (11:57)
[2019-08-13] MEDS ORDERED: CLONIDINE HCL 0.2 MG TAB PO ONE (12:20)
[2019-08-13] MEDS: PRASUGREL 10 MG TAB PO SCH (16:15)
[2019-08-13] MEDS: METOPROLOL TARTRATE 25 MG TAB PO SCH (16:15)
[2019-08-13] MEDS: ASPIRIN 81 MG ENTERIC COATED PO SCH (16:15)
--- NOTE | 2019-08-13 17:11 | NUR ---
Nutrition Screen Note RD Recommendation for Physician: - When feasible, ADAT to goal of 1800 ADA, Cardiac Plan of Care: RD following, monitoring for tolerance and adequacy Nutrition reason for involvement: Nutrition Risk Trigger Primary Diagnose(s): chest pain, angina PMH: DM, chronic renal insufficiency, HTN, CAD, COPD Ht: 67 in Wt: 281.13 lb BMI: 44 kg/m2 IBW: [address] Assessment: (08/12) 59 YOM admitted for chest pain and angina. Pt evaluated today per MST screen. Pt out of room at time of attempted visits for stress test. Per RN pt with no reported poor intake or wt loss, noted 75% intake of breakfast this am prior to NPO. Skin intact per chart. LBM 08/12- liquid. Chart reviewed. Labs and meds reviewed. Will monitor and continue to follow Current Diet: NPO Malnutrition Evaluation (08/13/19) The patient does not meet criteria for a specified degree of malnutrition at this time. Will re-evaluate at follow-up as appropriate. Energy intake: No poor intake reported per RN Weight loss: No wt loss reported per RN Fat loss: unable to evaluate Muscle loss: unable to evaluate Supporting Evidence: Fluid accumulation: no edema recorded Functional Status: unable to evaluate Diet Education Needs Assessment: Diet education indicated, pt not appropriate at this time- out of room for testing. Diet tolerance: tolerating po prior to NPO Nutrition Care Level: low Signed: Yary Zaragoza RD, LD, [facility]
[2019-08-13 18:36] LABS: CREATINE KINASE 55 IU/L (30-200)
--- NOTE | 2019-08-13 19:15 | NUR ---
Report given to oncoming nurse. Resting in bed. No s/s of acute distress noted. Side rails upx2, call light within reach.
[2019-08-13] MEDS ORDERED: ATORVASTATIN 40 MG TAB PO SCH (21:00)
[2019-08-13] MEDS ORDERED: ATORVASTATIN 20 MG TAB PO SCH (21:00)
[2019-08-14] VITALS: BP 147/67
[2019-08-14 04:00] VITALS: BP 140/66
[2019-08-14] MEDS ORDERED: SODIUM CHLORIDE 0.9% 1000ML 1,000 ML IV SCH ×2 (05:00→13:45)
[2019-08-14 05:33] LABS: BASOPHILS # (AUTO) 0.1 (0.0-0.1); BASOPHILS % 0.9 % (0.0-1.0); EOSINOPHILS # (AUTO) 0.6 (0.0-0.4); EOSINOPHILS % 6.8 % (0.0-6.0); HEMATOCRIT 35.6 % (38.2-49.6); HEMOGLOBIN 11.6 g/dL (14.0-18.0); LYMPHOCYTES # (AUTO) 2.2 (1.0-3.2); LYMPHOCYTES % 23.8 % (18.0-39.1); MEAN CORPUSCULAR HEMOGLOBIN 29.4 pg (28-32); MEAN CORPUSCULAR HGB CONC 32.6 g/dL (31-35); MEAN CORPUSCULAR VOLUME 90.1 fL (81-99); MONOCYTES # (AUTO) 0.7 (0.2-0.8); MONOCYTES % 7.3 % (4.4-11.3); NEUTROPHILS # (AUTO) 5.5 (2.1-6.9); NEUTROPHILS % 60.6 % (38.7-80.0); PLATELET COUNT 167 x10e3/uL (140-360); RED BLOOD COUNT 3.95 x10e6/uL (4.3-5.7); RED CELL DISTRIBUTION WIDTH 14.5 % (11.7-14.4)
[2019-08-14 05:50] LABS: ALBUMIN 3.4 g/dL (3.5-5.0); ALBUMIN/GLOBULIN RATIO 1.3 (0.8-2.0); ANION GAP 11.7 mmol/L (8-16); CALCIUM 9.5 mg/dL (8.4-10.2); CREATININE, SERUM 1.48 mg/dL (0.72-1.25); POTASSIUM 3.7 mmol/L (3.5-5.1)
[2019-08-14 07:02] LABS: CREATINE KINASE MB 1.4 ng/mL (0-5.0)
[2019-08-14 08:32] VITALS: BP 177/83
[2019-08-14 09:00] VITALS: BP 177/83
[2019-08-14] MEDS: PRASUGREL 10 MG TAB PO SCH (09:00)
[2019-08-14] MEDS: ASPIRIN 81 MG ENTERIC COATED PO SCH (09:00)
[2019-08-14] MEDS: HYDRALAZINE HCL 100 MG TABLET PO SCH (09:45)
[2019-08-14] MEDS: ISOSORBIDE MONONITRATE 30 MG TAB CR PO SCH (09:46)
[2019-08-14] MEDS: METOPROLOL TARTRATE 25 MG TAB PO SCH (09:47)
[2019-08-14] MEDS: NIFEDIPINE CR 30 MG TAB PO SCH (09:48)
--- NOTE | 2019-08-14 10:10 | NUR ---
pt of unit for procedure.
[2019-08-14 10:30] VITALS: BP 159/76
--- NOTE | 2019-08-14 10:30 | NUR ---
1030am/pm RECEIVING NOTE BEEF LUGGER #[address] prepped [address] [facility] Dr Onofre Abnormal stress. Identifierx2. Alert oriented and appropriate, PERRLA, respirations even and unlabored to room air. Pulses x4 extremities equal and strong. Pedal pulses PT/DP X4 and marked. Cap fill brisk < 3 sec. Skin warm and dry integrity appears D/I.IV 20g to rt lat arm and clamped.Presents healthy w/o s/s of infiltration or complaint. Abdomen soft and supple. pt offered toileting, denies need to urinate or defecate. No personal affects with patient. Family available Yamilex. Pt verbalizes understanding of POC. No Pre-Op Meds XXXXX. On monitor Sinus christina. Currently w/o complaint of pain or need. Handoff given to Donya GAMBINO. irma/daphnie
[2019-08-14] MEDS ORDERED: FENTANYL CITRATE/PF 100MCG/2 ML INJ ONE (10:44)
[2019-08-14] MEDS ORDERED: MIDAZOLAM HCL 2 MG/2 ML VIAL ONE (10:44)
[2019-08-14] MEDS ORDERED: LIDOCAINE HCL 2% LOCAL 20 ML VIAL ONE (10:45)
[2019-08-14] MEDS ORDERED: HEPARIN SOD/SOD CHLORIDE 2,000 ML ONE (10:46)
[2019-08-14] MEDS ORDERED: IOPAMIDOL 370 MG/ML 200 ML INFUS..BTL INJ ONE (10:46)
[2019-08-14] MEDS ORDERED: SODIUM CHLORIDE 0.9% 1000ML 1,000 ML ONE (10:46)
[2019-08-14] MEDS ORDERED: VERAPAMIL HCL 2.5 MG/ML 2 ML VIAL ONE (10:47)
[2019-08-14] MEDS ORDERED: BIVALRIUDIN 250 MG/VIAL VIAL IV ONE (11:30)
[2019-08-14] MEDS ORDERED: SODIUM CHLORIDE 0.9% 50ML 50 ML ONE (11:30)
[2019-08-14] MEDS ORDERED: PRASUGREL 10 MG TAB ONE (11:52)
[2019-08-14] MEDS ORDERED: ASPIRIN 81 MG CHEW TAB ONE (11:58)
--- NOTE | 2019-08-14 13:53 | Myoview Stress Test ---
DATE OF STUDY: 08/13/2019 09:24:00 Stress Test - Treadmill ONLY TITLE OF REPORT: Exercise nuclear stress test. INDICATION FOR STUDY: Chest pain, highly suspicious of new onset angina in a patient with previous history of CAD and abnormal EKG. TECHNICAL DETAILS: After risks, benefits, pros and cons of exercise nuclear stress test were explained to the patient, the patient agreed to proceed. He was brought down to the nuclear lab, where he initially received 11 mCi dose of technetium-99m tetrofosmin intravenously and after 40 minutes the patient was taken to the [employer] SPECT camera for resting myocardial perfusion imaging. Afterwards, he was brought to the stress lab, where 12-lead EKG monitoring and blood pressure monitoring were obtained. He exercised on a Gomez protocol going from a baseline heart rate of 87 beats per minute to a maximum of 130 beats per minute, which is submax from our target heart rate of 137 beats per minute. Blood pressure went from 148/80 to 161/80, which is appropriate hemodynamic response. At peak exercise, which was 5 minutes and 22 seconds in stage II of the protocol, the patient received 33 millicurie dose of technetium-99m tetrofosmin intravenously as a stress agent. Underlying EKG revealed normal sinus rhythm, delayed R to S wave transition and no ST-T wave changes at baseline and at peak exercise there was borderline lateral ischemic EKG changes and the patient developed chest pain symptoms compatible with his angina, which brought him to this hospitalization. Again, the stress protocol was submax and terminated early on account of severe chest pain consistent with angina. At that point in time, after good 25 minutes later, the patient was then taken back to the SPECT camera for stress myocardial perfusion imaging. FINDINGS: 1. Resting myocardial perfusion imaging reveals largely normal tracer uptake. 2. Stress myocardial perfusion imaging reveals a moderate-size decreased uptake in the anterior and anterolateral wall that is mild in intensity and not present on resting image. 3. Following gated measurements were obtained. End-diastolic volume is 129 mL, end systolic volume 63 mm, calculated left ventricular ejection fraction is 51% with largely normal wall motion. 4. Exercise treadmill stress test portion of this study was positive submaximal stress test. CONCLUSIONS: 1. Abnormal myocardial perfusion imaging study revealing a moderate size decreased uptake of the anterior and anterolateral wall concerning for ischemia. 2. Exercise treadmill stress test portion of the stress test is positive for ischemic EKG changes and symptoms. 3. Normal left ventricular function, EF 51%. 4. Findings of the stress test and nuclear could be underestimating on account of this being a submaximal protocol. 5. Overall, this study is compatible with at least a moderate risk stress test. MD ALFREDO Lozano/ALEKSANDR /[id number]
--- NOTE | 2019-08-14 15:12 | Operative Report ---
DATE OF PROCEDURE: 08/14/2019 SURGEON: Heidi Aquino MD PROCEDURES PERFORMED: 1. Left heart cardiac catheterization and coronary angiography. 2. Left ventricular pressure assessment. 3. Percutaneous coronary intervention with drug-eluting stent placement to the first diagonal branch. INDICATION FOR PROCEDURE: A 59-year-old gentleman with history of hypertension, hypercholesteremia, CAD with prior history of stenting to the LAD and diagonal branch with prior history of early PR back about a year ago, presents to this institution with 48 hours of new onset angina, typical symptoms, occurring at rest. He was ischemically risk stratified with an exercise nuclear stress test on 08/13/2019, which was noted to have at least a moderate risk abnormal finding with anterolateral ischemia. The patient developed chest pain on the exercise protocol, which was again submax, which concerned us given its recent instability. He is brought to the cardiac catheterization laboratory for definitive ischemic evaluation. DESCRIPTION OF PROCEDURE: After risks, benefits, pros and cons of today's procedure were explained, the patient agreed to proceed. He was brought to the cardiac catheterization laboratory, where the right wrist was prepped and draped in usual sterile fashion. Preprocedure Charles and Barbeau test noted to be normal. Lidocaine 1% solution was used to numb the right wrist region. Access to the right radial artery was obtained and a short 6-Lux[place]bourgish Terumo slender sheath was placed. Intra-arterial verapamil 2.5 mg and nitroglycerin 200 mcg given through the sheath and 5000 units of intravenous heparin was given for systemic anticoagulation. We initially went up with a Wholey wire and a 5-Lux[place]bourgish [place] 4.0 diagnostic catheter and performed left and right coronary angiography. This revealed the presence of a 95% mid diagonal branch stenosis, which was rather sizable for him and we decided to proceed with intervention. At that point in time, utilizing the exchange Wholey wire, we placed a 6-Lux[place]bourgish XB 3.5 guiding catheter placed into the side of the body. IV Angiomax bolus was given for supplemental anticoagulation. We dropped this guiding catheter into the ventricle for ventricular pressure measurement assessment and pullback gradient across the aortic valve. Next, we selected the left main coronary ostia. We took 180 cm 0.014 Runthrough wire and crossed the lesion quite easily. We took a Trek 2.0 x 12 mm balloon and did 3 inflations at 6 atmospheres each for 40 seconds. This yielded the 95% diagonal branch lesion. We then took a Resolute Chon 2.0 x 18 mm drug-eluting stent and deployed that up to 12 atmospheres of pressure. This lesion happened to be distal to a previously placed stent in that vessel. We pulled the stent back and hit the overlap segment with a 15 atmosphere inflation. Following angiography revealed 0% residual stenosis, JEREMÍAS-3 flow, no complications. At the conclusion of the case, the guiding catheter was removed with a J-wire and a Terumo TR band was successfully deployed utilizing patent hemostasis technique and a total of 17 mL of air was placed. COMPLICATIONS: None. ESTIMATED BLOOD LOSS: Minimal. FINDINGS: 1. Left main is angiographically normal, gives rise to an LAD, small ramus intermedius, and circumflex branch. 2. LAD has a moderate caliber first diagonal branch with a proximally placed stent. Just distal to the stent, there is a 95% focal lesion, which is new compared to his previous angiogram about a year ago. This is the distribution of the ischemia on his nuclear stress test report. The mid LAD has a widely patent stent that was placed a year ago. Remainder of this vessel has just mild luminal irregularities. 3. The ramus intermedius is a small caliber vessel with mild luminal irregularities. 4. The left circumflex artery gives rise to two small marginal branches and terminates into a large posterolateral marginal branch. There is a 30% to 40% mid circumflex artery stenosis. 5. The RCA is dominant, gives rise to right PDA and right PLV branch. There is 50% mid RCA stenosis. The right PDA has a 50% mid right PDA stenosis and a 50% right PLV stenosis. This vessel appears largely unchanged compared to previous angiogram. 6. Left ventricular end-diastolic pressure is 20 mmHg. There is no significant LV to aortic pullback gradient. INTERVENTION SUMMARY: Successful treatment of the 95% first diagonal branch stenosis with implantation of a Resolute Chon 2.0 x 18 mm drug-eluting stent, resulting in 0% residual stenosis, JEREMÍAS-3 flow, no complications. PLAN/RECOMMENDATIONS: 1. Aspirin and Effient therapy. 2. Statin therapy. 3. Aggressive risk factor modification and medical therapy. 4. Removal of TR band per protocol in approximately 2 hours. 5. If access site looks good, reasonable to send the patient home later today. MD ALFREDO Lozano/ALEKSANDR /[id number]
--- NOTE | 2019-08-14 16:17 | Discharge Summary ---
PRIMARY CARE DOCTOR: Dr. Juwan Tate. FINAL DIAGNOSES: 1. Unstable angina with coronary artery disease, requiring stent placement. 2. Uncontrolled hypertension, better. 3. Morbid obesity. 4. Stage 3 chronic kidney disease, stable. 5. Diabetes. THERAPEUTIC RECREATION SPECIALIST: Dr. Aquino, Cardiology. PROCEDURES/STUDIES PERFORMED: 1. Echocardiogram. 2. Stress test. 3. Cardiac angiogram. HISTORY: Per H and P. HOSPITAL COURSE: The patient was admitted. Repeat troponin was negative. Therefore, there was no acute myocardial infarction. The patient underwent stress test, which he failed. Subsequently, left heart catheterization was done and a stent was placed. I discussed with Dr. Aquino. The patient may go home later tonight. I have also updated his primary care doctor. He will follow up in one week. The patient was told to continue his aspirin and Effient and also his Lipitor. The patient was seen and examined today, it took 31 minutes total to discharge this patient. CONDITION ON DISCHARGE: Improved. DISCHARGE MEDICATIONS: Please see medication reconciliation form. MD KIRSTIN Calhoun/ALEKSANDR /[id number] cc: Juwan Tate [facility]
[2019-08-14 16:24] VITALS: BP 178/79
--- NOTE | 2019-08-14 17:50 | NUR ---
pt discharged home, resp even and unlabored pt is to follow up with his pcp and his nurse emergency, no prescriptions given at this time, cont. home medication, iv site removed, no swelling no redness to site
== END 2019-08-14 18:07 | disposition home or self-care (01) ==
LOC: ER 18:59 → MED/SURG2 22:30 → ER 23:00
PROVIDERS: ADMIT Internal Medicine; ATTEND Internal Medicine
DX: I25.110 Atherosclerotic heart disease of native coronary artery with unstable angina pectoris (principal); R07.89 Other chest pain; E11.22 Type 2 diabetes mellitus with diabetic chronic kidney disease; I12.9 Hypertensive chronic kidney disease with stage 1 through stage 4 chronic kidney disease, or unspecified chronic kidney disease; N18.3 Chronic kidney disease, stage 3 (moderate); E66.01 Morbid (severe) obesity due to excess calories; Z68.41 Body mass index [BMI] 40.0-44.9, adult; Z95.5 Presence of coronary angioplasty implant and graft; E11.42 Type 2 diabetes mellitus with diabetic polyneuropathy; K74.60 Unspecified cirrhosis of liver; J44.9 Chronic obstructive pulmonary disease, unspecified; E78.00 Pure hypercholesterolemia, unspecified; Z79.82 Long term (current) use of aspirin; Z79.4 Long term (current) use of insulin
CPT/HCPCS: 36415 ×3; 71046; 71260; 78452; 80053 ×3; 80061; 81001; 82550 ×3; 82553 ×3; 82948 ×2; 83880; 84484 ×3; 85025 ×3; 85610; 85730; 92928; 93005 ×2; 93017; 93306; 93458; 99284; A9502; C1725; C1769; C1876; C1887 ×2; G0378 ×3; J0583; J2001; J2250; J3010; J7030 ×3; Q9967 ×2; 99152; 99153

== ENCOUNTER 2019-12-20 20:01 | Emergency (ER) | payer OTHER ==
[~2019-12-20] VITALS: Ht 170.2 cm; Wt 127.5 kg
[2019-12-20] MEDS ORDERED: HYDRALAZINE HCL 20 MG/ML VIAL IV STA (20:38)
[2019-12-20] MEDS ORDERED: HYDRALAZINE HCL 20 MG/ML VIAL ONE (20:47)
[2019-12-20 20:52] LABS: BASOPHILS # (AUTO) 0.1 (0.0-0.1); BASOPHILS % 0.7 % (0.0-1.0); EOSINOPHILS # (AUTO) 0.3 (0.0-0.4); EOSINOPHILS % 3.4 % (0.0-6.0); HEMATOCRIT 37.7 % (38.2-49.6); HEMOGLOBIN 11.9 g/dL (14.0-18.0); LYMPHOCYTES # (AUTO) 1.6 (1.0-3.2); LYMPHOCYTES % 21.4 % (18.0-39.1); MEAN CORPUSCULAR HEMOGLOBIN 28.4 pg (28-32); MEAN CORPUSCULAR HGB CONC 31.6 g/dL (31-35); MONOCYTES # (AUTO) 0.5 (0.2-0.8); MONOCYTES % 6.5 % (4.4-11.3); NEUTROPHILS % 67.3 % (38.7-80.0); PLATELET COUNT 190 x10e3/uL (140-360); RED BLOOD COUNT 4.19 x10e6/uL (4.3-5.7); RED CELL DISTRIBUTION WIDTH 14.2 % (11.7-14.4)
--- NOTE | 2019-12-20 21:08 | Emergency Department Note ---
History of Present Illnes History of Present Illness Chief Complaint: COVID PUI History of Present Illness This is a 59 year old male PRESENTS TO THE ER C/O MIDSTERNAL CP THAT RADIATES TO CENTER OF BACK X5 DAYS WITH SOB ON EXERTION; PT ALSO REPORTS HEADACHE WITH NO RELIEF X3 DAYS AND REPORTED DIARRHEA X3 DAYS; PT DENIES SOB AT THIS TIME. PT STATES WHEN HE TAKES A DEEP BREATH PAIN GOES TO RIGHT SHOULDER BLADE. Historian: Patient Arrival Mode: Car Onset (how long ago): day(s) (5) Location: CHEST, BACK, Quality: PAIN, DIARRHEA, HURTS TO BREATH Radiation: Reports back Severity: moderate Onset quality: gradual Duration (how long): day(s) (5) Timing of current episode: constant Progression: worsening Context: Denies recent illness, Denies recent surgery, Denies trauma/injury Relieving factors: none Exacerbating factors: other (INSPIRATION) Associated symptoms: Reports chest pain, Reports other (DIARRHEA, HURTS TO BREATH) Past Medical/Family History Physician Review I have reviewed the patient's past medical and family history. Any updates have been documented here. 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 RT KNEE SCRAPE CARTILAGE Social History Smoking Cessation: Never Smoker Alcohol Use: None Any Illegal Drug Use: No Physically hurt or threatened: No Family History Family history of heart diseas: Yes Other family history HTN,DM,CAD Other Last Tetanus: UTD Review of Systems Review of Systems Constitutional: Reports no symptoms EENTM: Reports no symptoms Cardiovascular: Reports as per HPI Respiratory: Reports as per HPI Gastrointestinal: Reports as per HPI Genitourinary: Reports no symptoms Musculoskeletal: Reports no symptoms Integumentary: Reports no symptoms Neurological: Reports no symptoms Psychological: Reports no symptoms Endocrine: Reports no symptoms Hematological/Lymphatic: Reports no symptoms Physical Exam Related Data Allergies: Coded Allergies: No Known Allergies (Unverified , 09/30/18) Triage Vital Signs Vital Signs Date Time Temp Pulse Resp B/P (MAP) Pulse Ox O2 Delivery O2 Flow Rate FiO2 12/20/19 20:01 99.7 66 20 211/103 98 Room Air Vital signs reviewed: Yes Physical Exam CONSTITUTIONAL Constitutional: Present well-developed, Present well-nourished, Present distressed (MILD) HENT HENT: Present normocephalic, Present atraumatic, Present oropharynx clear/moist, Present nose normal HENT L/R: Present left ext ear normal, Present right ext ear normal EYES Eyes: Reports PERRL, Reports conjunctivae normal NECK Neck: Present ROM normal PULMONARY Pulmonary: Present effort normal, Present breath sounds normal, Present chest tenderness (WITH PALPATION OF STERNUM) CARDIOVASCULAR Cardiovascular: Present regular rhythm, Present heart sounds normal, Present capillary refill normal, Present normal rate GASTROINTESTINAL Abdominal: Present soft, Present bowel sounds normal, Present tender (RUQ TENDER TO PALPATION) GENITOURINARY Genitourinary: Present exam deferred SKIN Skin: Present warm, Present dry MUSCULOSKELETAL Musculoskeletal: Present ROM normal NEUROLOGICAL Neurological: Present alert, Present oriented x 3, Present no gross motor or sensory deficits PSYCHOLOGICAL Psychological: Present mood/affect normal, Present judgement normal Results Laboratory Result Diagram: 12/20/192035 Laboratory Laboratory Tests Test 12/20/19 20:36 White Blood Count 7.37 x10e3/uL (4.8-10.8) Red Blood Count 4.19 x10e6/uL (4.3-5.7) Hemoglobin 11.9 g/dL (14.0-18.0) Hematocrit 37.7 % (38.2-49.6) Mean Corpuscular Volume 90.0 fL (81-99) Mean Corpuscular Hemoglobin 28.4 pg (28-32) Mean Corpuscular Hemoglobin Concent 31.6 g/dL (31-35) Red Cell Distribution Width 14.2 % (11.7-14.4) Platelet Count 190 x10e3/uL (140-360) Neutrophils (%) (Auto) 67.3 % (38.7-80.0) Lymphocytes (%) (Auto) 21.4 % (18.0-39.1) Monocytes (%) (Auto) 6.5 % (4.4-11.3) Eosinophils (%) (Auto) 3.4 % (0.0-6.0) Basophils (%) (Auto) 0.7 % (0.0-1.0) Neutrophils # (Auto) 5.0 (2.1-6.9) Lymphocytes # (Auto) 1.6 (1.0-3.2) Monocytes # (Auto) 0.5 (0.2-0.8) Eosinophils # (Auto) 0.3 (0.0-0.4) Basophils # (Auto) 0.1 (0.0-0.1) Absolute Immature Granulocyte (auto 0.05 x10e3/uL (0-0.1) D-Dimer Quantitative (PE/DVT) 0.29 ug/mLFEU (0.00-0.45) Sodium Level 142 mmol/L (136-145) Potassium Level 3.7 mmol/L (3.5-5.1) Chloride Level 107 mmol/L (98-107) Carbon Dioxide Level 24 mmol/L (22-29) Anion Gap 14.7 mmol/L (8-16) Blood Urea Nitrogen 21 mg/dL (7-26) Creatinine 1.64 mg/dL (0.72-1.25) Estimat Glomerular Filtration Rate 43 ML/MIN (60-) BUN/Creatinine Ratio 13 (6-25) Glucose Level 232 mg/dL (74-118) Calcium Level 9.0 mg/dL (8.4-10.2) Total Bilirubin 0.4 mg/dL (0.2-1.2) Aspartate Amino Transf (AST/SGOT) 22 IU/L (5-34) Alanine Aminotransferase (ALT/SGPT) 24 IU/L (0-55) Alkaline Phosphatase 102 IU/L (40-150) Creatine Kinase 72 IU/L (30-200) Creatine Kinase MB 1.30 ng/mL (0-5.0) Troponin I 0.001 ng/mL (0-0.300) B-Type Natriuretic Peptide 119.5 pg/mL (0-100) Total Protein 6.5 g/dL (6.5-8.1) Albumin 3.4 g/dL (3.5-5.0) Globulin 3.1 g/dL (2.3-3.5) Albumin/Globulin Ratio 1.1 (0.8-2.0) Amylase Level 23 U/L (25-125) Lipase 42 U/L (8-78) Laboratory Tests Test 12/20/19 20:36 White Blood Count 7.37 x10e3/uL (4.8-10.8) Red Blood Count 4.19 x10e6/uL (4.3-5.7) Hemoglobin 11.9 g/dL (14.0-18.0) Hematocrit 37.7 % (38.2-49.6) Mean Corpuscular Volume 90.0 fL (81-99) Mean Corpuscular Hemoglobin 28.4 pg (28-32) Mean Corpuscular Hemoglobin Concent 31.6 g/dL (31-35) Red Cell Distribution Width 14.2 % (11.7-14.4) Platelet Count 190 x10e3/uL (140-360) Neutrophils (%) (Auto) 67.3 % (38.7-80.0) Lymphocytes (%) (Auto) 21.4 % (18.0-39.1) Monocytes (%) (Auto) 6.5 % (4.4-11.3) Eosinophils (%) (Auto) 3.4 % (0.0-6.0) Basophils (%) (Auto) 0.7 % (0.0-1.0) Neutrophils # (Auto) 5.0 (2.1-6.9) Lymphocytes # (Auto) 1.6 (1.0-3.2) Monocytes # (Auto) 0.5 (0.2-0.8) Eosinophils # (Auto) 0.3 (0.0-0.4) Basophils # (Auto) 0.1 (0.0-0.1) Absolute Immature Granulocyte (auto 0.05 x10e3/uL (0-0.1) Lab results reviewed: Yes Imaging Imaging results reviewed: Yes Impressions Procedure: [id number] DX/CHEST SINGLE (PORTABLE) Exam Date: 12/20/19 Exam Time: 2224 REPORT STATUS: Signed EXAMINATION: CHEST SINGLE (PORTABLE) INDICATION: ^Y ^CHEST PAIN ^[id number] ^2224 COMPARISON: Radiograph dated 08/12/2019 FINDINGS: TUBES and LINES: None. LUNGS: Low lung volumes accentuate the perihilar markings. No consolidation. Strandy atelectasis in the lower left lung. PLEURA: No pleural effusion or pneumothorax. HEART AND MEDIASTINUM: The heart is mildly enlarged. BONES AND SOFT TISSUES: No acute osseous lesion. Soft tissues are unremarkable. UPPER ABDOMEN: No free air under the diaphragm. IMPRESSION: Unchanged cardiomegaly. No edema. No consolidation. Signed by: Graciela Liang MD on 12/20/2019 11:00 PM Examination: CT BRAIN WO CONTRAST History:Headache Comparison studies:None Technique: Axial images were obtained from the skull base to the vertex. Coronal and sagittal images reconstructed from the axial data. Dose modulation, iterative reconstruction, and/or weight based adjustment of the mA/kV was utilized to reduce the radiation dose to as low as reasonably achievable. Intravenous contrast: None Findings: Scalp: No abnormalities. Bones: No fractures, blastic or lytic lesions. Brain sulci: Appropriate for age. Ventricles: Normal in size and configuration. No hydrocephalus. Extra-axial space: No abnormalities. Parenchyma: No masses, hemorrhage, or acute or chronic cortical based vascular insults. Sellar/suprasellar region: No abnormalities. Craniocervical junction: Patent foramen magnum. No Chiari one malformation. Incidental findings: None. Impression: No intracranial abnormalities. Signed by: Dr. Usha Casarez M.D. on 12/20/2019 10:59 PM Dictated By: USHA ORELLANA MD 58 Transcribed By: KATEY on 12/20/192258 COPY TO: DAMION NOVOA MD~ EXAM: Right Upper Quadrant Ultrasound INDICATION: ^RUQ PAIN COMPARISON: None. TECHNIQUE: Transverse and longitudinal images of the right upper abdomen were obtained. FINDINGS: Liver: Size: 21.1 cm in the right midclavicular line, normal Appearance: Increased echogenicity, nodular contour Mass: Question 7 mm hyperechogenic lesion in the right hepatic lobe. Gallbladder: Stones/Sludge: None Wall: 0.2 cm Appearance: No pericholecystic fluid or hydrops. Sonographic Sandoval's Sign: Negative Bile Ducts: Intrahepatic Ducts: No dilatation Extrahepatic Ducts: Common bile duct measures 0.6 cm, no dilatation Pancreas: Suboptimally evaluated due to bowel gas. Visualized portions are normal. Right Kidney: Size: 13.0 cm Echogenicity: Normal Parenchymal thickness: Normal Collecting system: No hydronephrosis Stones: None Cyst/Mass: None Vessels: Aorta: Nonvisualized due to bowel gas. Inferior Vena Cava: Nonvisualized due to bowel gas. Main portal vein: Normal size and flow direction. Free Fluid: No ascites or pleural effusion IMPRESSION: 1. Cirrhotic liver morphology with possible 7 mm hyperechoic indeterminate lesion in the right hepatic lobe. Nonemergent liver protocol CT or MR is recommended for further evaluation to exclude hepatocellular carcinoma. 2. The pancreas, aorta, and IVC are not completely evaluated due to bowel gas. 3. No cholelithiasis. No evidence of acute cholecystitis. Signed by: Graciela Liang MD on 12/20/2019 11:08 PM Dictated By: GRACIELA LIANG MD 07 Transcribed By: KATEY on 12/20/192307 COPY TO: DAMION NOVOA MD~ EXAM: CT Abdomen and Pelvis WITHOUT and WITH contrast INDICATION: LIVER MASS PROTOCOL COMPARISON: Ultrasound from today. TECHNIQUE: Abdomen and pelvis were scanned utilizing a multidetector helical scanner from the lung base to the pubic symphysis before and after administration of IV contrast. Coronal and sagittal reformations were obtained. Routine protocol was performed. Scan was performed when during portal venous phase. IV CONTRAST: 150 mL of Omnipaque 300 ORAL CONTRAST: None COMPLICATIONS: None RADIATION DOSE: Total DLP: 2509.15 mGy*cm Estimated effective dose: (DLP x 0.015 x size factor) mSv CTDIvol has been reviewed. It is below the limits set by the Radiation Protocol Committee (RPC). Dose modulation, iterative reconstruction, and/or weight based adjustment of the mA/kV was utilized to reduce the radiation dose to as low as reasonably achievable. FINDINGS: LINES and TUBES: None. LOWER THORAX: Severe coronary artery calcifications. Minimal dependent atelectasis. HEPATOBILIARY: Hepatic steatosis. Nodular hepatic contour suggests cirrhosis. 2.4 cm lesion in hepatic segment 4A is mildly hyperdense on noncontrast imaging measuring 60 Hounsfield units. The lesion does not appear to enhance late arterial phase-60 HU units. On portal venous phase, the lesion mildly enhances at 90 Hounsfield units. No washout or pseudocapsule. GALLBLADDER: No radio-opaque stones or sludge. No wall thickening. SPLEEN: No splenomegaly. PANCREAS: No focal masses or ductal dilatation. ADRENALS: No adrenal nodules KIDNEYS/URETERS: 2.1 cm lobulated cystic lesion at the anterior aspect of the left kidney demonstrates equivocal enhancement. Additional simple renal cysts. GI TRACT: No abnormal distention, wall thickening, or evidence of bowel obstruction. Appendix is normal. PELVIC ORGANS/BLADDER: Unremarkable. LYMPH NODES: No lymphadenopathy. VESSELS: Atherosclerosis without aneurysm. PERITONEUM / RETROPERITONEUM: No free air or fluid. BONES: Unremarkable. SOFT TISSUES: Unremarkable. IMPRESSION: 1. 2.4 cm hepatic segment 4A lesion without arterial phase hyperenhancement, pseudocapsule, or washout. The lesion mildly enhances on portal venous phase. These characteristics are atypical for hepatocellular carcinoma. Given findings of cirrhosis, GI consultation and repeat liver protocol CT is recommended in 3 months. 2. 2.2 cm lobulated cystic lesion in the left kidney demonstrates a cortical enhancement. Consider follow-up renal mass protocol CT and 6 months, or this can be reassessed with the liver mass.. Signed by: Graciela Liang MD on 12/21/2019 4:12 AM Dictated By: GRACIELA LIANG MD 1 Transcribed By: KATEY on 12/21/19411 COPY TO: DAMION NOVOA MD~ Procedures 12 Lead ECG Interpretation ECG Interpretation : ECG: ECG 1 Program Control Analyst: Interpreted by ED physician Date: Dec 20, 2019 Time: 20:09 Rhythm: sinus rhythm Rate: normal BPM: 64 QRS axis: normal ST segments normal: Yes T waves normal: Yes Q waves: V1, V2, V3 Clinical Impression: abnormal ECG Assessment & Plan Medical Decision Making MDM PT WITH CHEST PAIN, DIARRHEA, TENDERNESS TO RUQ, PAIN WITH INSPIRATION,AND HEADACHE, BP IS ALSO EXTREMELY ELEVATED CBC, CMP, CARDIAC ENZYMES, EKG, CXR, CT BRAIN, GALL BLADDER U/S AMYLASE, LIPASE, D-DIMER ORDERED TO EVAL FOR GALLSTONES, MYOCARDIAL INFARCTION, ELECTROLYTE ABNORMALITY, ELEVATED LFT'S, PANCREATITIS, INTRACRANIAL ABNORMALITY HYDRALAZINE 10 MG IV ORDERED MORPHINE 4 MG IV ORDERED ZOFRAN 4 MG IV ORDERED GALL BLADDER U/S REVEALED POSSIBLE LIVER CANCER, CT ORDERED TO EVALUATE Assessment & Plan Final Impression: (1) Abdominal pain (2) Cirrhosis (3) Liver lesion (4) Lesion of left [place] kidney (5) Chest pain, non-cardiac Depart Disposition: HOME, SELF-CARE Last Vital Signs Date Time Temp Pulse Resp B/P (MAP) Pulse Ox O2 Delivery O2 Flow Rate FiO2 12/20/19 20:43 67 22 220/98 95 Room Air 12/20/19 20:01 99.7 Home Meds Reported Medications [Basaglar] No Conflict Check, 120 UNITS SQ HS 10/01/18 Allopurinol (ALLOPURINOL) 300 Mg Tablet, 300 MG PO DAILY, #30 TAB 10/01/18 Pantoprazole Sodium* (PROTONIX) 40 Mg Tablet.dr, 40 MG PO DAILY, TAB 10/01/18 Hydralazine Hcl (HYDRALAZINE HCL) 25 Mg Tab, 100 MG PO TID, TAB 10/01/18 Furosemide (FUROSEMIDE) 10 Mg/1 Ml Vial, 20 MG PO BID, VIAL 10/01/18 Losartan Potassium (LOSARTAN POTASSIUM) 25 Mg Tablet, 25 MG PO DAILY 10/01/18 Atorvastatin Calcium (LIPITOR) 20 Mg Tablet, 80 MG PO DAILY, #30 TAB 10/01/18 Aspirin (ASPIR 81) 81 Mg Tablet.dr, 81 MG DAILY 10/01/18 Labetalol Hcl (LABETALOL HCL) 200 Mg Tablet, 200 MG PO Q12H, #60 TAB 10/01/18 Nifedipine (NIFEDIPINE ER) 30 Mg Tab.er.24, 90 MG PO DAILY 10/01/18 Prasugrel Hcl (EFFIENT) 10 Mg Tablet, 10 MG PO DAILY, #30 TAB 10/01/18 Clonidine Hcl (CLONIDINE HCL) 0.3 Mg Tablet, 0.3 MG TD Q7DAYS, #1 PATCH Qsaturday 10/01/18 Isosorbide Mononitrate (ISOSORBIDE MONONITRATE ER) 30 Mg Tab.er.24h, 120 MG PO DAILY, #30 TAB 10/01/18 Medications in the ED Hydralazine HCl 10 mg NOW STAT IV ; Start 12/20/19 at 20:38; Stop 12/20/19 at 20:39 Hydralazine HCl 20 mg STK-MED ONCE .ROUTE ; Start 12/20/19 at 20:47; Stop 12/20/19 at 20:41; Status DC DAMION NOVOA MD Dec 20, 2019 21:08
[2019-12-20] MEDS ORDERED: ONDANSETRON HCL INJ 2MG/ML 2ML 2 MG/ML VIAL IV STA (21:09)
[2019-12-20] MEDS ORDERED: MORPHINE SULFATE 2 MG/ML SYR 1ML IV STA (21:09)
[2019-12-20 21:14] LABS: ALBUMIN 3.4 g/dL (3.5-5.0); ALBUMIN/GLOBULIN RATIO 1.1 (0.8-2.0); ANION GAP 14.7 mmol/L (8-16); CREATININE, SERUM 1.64 mg/dL (0.72-1.25); POTASSIUM 3.7 mmol/L (3.5-5.1)
[2019-12-20 21:21] LABS: CREATINE KINASE MB 1.3 ng/mL (0-5.0)
[2019-12-20 22:20] LABS: AMYLASE 23 U/L (25-125); LIPASE 42 U/L (8-78)
--- OUTSIDE RECORDS SUMMARY | 2019-12-20 22:48 | XMS REPORT | Clinical Summary ---
Author Author DEVAN BedyCasa [facility] Center[facility] Address Unknown Phone Unavailable Care Team Providers Care Sugar Grinder Name Role Phone Juwan Tate MD PCP [...] Take 50 mg by 0 MG capsuleIndications: a mouth daily type of joint disorder as needed. due to excess uric acid in the blood called gout Active prasugrel (EFFIENT) 10 mg Take 1 tablet 90 tablet 0 Tab tablet (10 mg total) 7 by mouth daily. Active Problems Problem Noted Date Mild single current episode of major depressive disor dennis 10/11/2016 CKD stage 3 due to type 2 diabetes mellitus 10/12/19 17 Recurrent exertional angina 01/25/2015 Abnormal nuclear cardiac imaging test 01-24-201501/12 Type 2 diabetes mellitus with hyperlipidemia 015 Coronary atherosclerosis 01/23/2015 Overview: UPDATED BY ICD10 SNOMED/IMO UPDATES Essential hypertension, benign 01/23/2015 Chest pain 01/22/2015 Overview: UPDATED BY ICD10 SNOMED/IMO UPDATES Encounters Care Team Description Date Type Specialty Shirley Tracy DO Hyperreflexia; Butler sign present; Chronic thoracic spine pain 02/12/2019 Hospital Radiology Encounter Shirley Tracy DO Hyperreflexia; Butler sign present; Chronic thoracic spine pain 02/12/2019 Hospital Radiology Encounter Shirley Tracy DO Hyperreflexia (Primary Dx); Butler sign present; Chronic thoracic spine pain 12/20/2018 Outside Orders Radiology after 12/19/2018 Immunizations Name Dates Previously Given Next Due [...] Shelf Expiration Date Model / Serial / L ot Implanted Type Area Manufactur er 06/22/2017 [id number] - 18 / / [id number] Lionel Mcgill [employer]tw [employer]UNG Implanted: Qty: 1 on 01/06/2015 VASCULAR DEVICE Procedures Comments Procedure Name Priority Date/Time Associated Diag nosis MR CERVICAL SPINE WITHOUT Routine 02/12/2019 Hype rreflexia IV CONTRAST 9:35 AM CDT Butler sign presen t Chronic thoracic spine pain MR THORACIC SPINE WITHOUT Routine 02/12/2019 Hype rreflexia IV CONTRAST 8:50 AM CDT Butler sign presen t Chronic thoracic spine pain after 12/19/2018 Results * MR spine cervical without IV contrast (02/12/2019 9:35 AM CDT) Specimen Narrative Performed At FINAL REPORT [employer] [facility] MR, SPINE, THORACIC, WITHOUT CONTRAST, MR, SPINE, CERVICAL, WITHOUT CONTRAST INDICATION: HYPERREFLEXIA,BUTLER SIGN PRESENT,CHRONIC BILATERAL THORCIC BACK PAIN TECHNIQUE:Multiplanar, multisequenc e unenhancedMR images of the cervical and thoracic spine were obtain ed. COMPARISON: None FINDINGS: Cervical Spine: Axial images are severely motion degrad ed. Vertebral bodies demonstrate preserved height. There is straightening of the normal cervical lordosis. Degene rative endplate and disc degenerative changes are most severe at C5-6 and C6-7. There is a mild degree of facet arthropathy noted throughout the cervical spine. No aggressive appearing lesions are pre sent. Cervical cord demonstrates grossly norm al caliber. There is suggestion of multifocal T2 hyperintens ities throughout the cervical cord, but are inconsistent when compari ng axial and sagittal sequences. Signal characteristics are m ost prominent ventrally/centrally at C3-4 with questi onable changes at C5-6 and C6-7. Findings by level: C2/C3: Broad disc bulge without canal c ompromise. Mild bilateral foraminal stenosis. C3/C4: Central disc protrusion. Mild ca nal narrowing. Mild foraminal stenosis. C4/C5: Moderate canal narrowing and mod erate to severe bilateral foraminal stenosis. C5/C6: Discogenic changes creating mode rate to severe canal narrowing. Moderate to severe bilateral foraminal stenosis C6/C7: Moderate canal narrowing. Modera te to severe bilateral foraminal stenosis. C7/T1: No canal or foraminal narrowing. Paraspinal soft tissue structures are u nremarkable. Thoracic spine: The vertebral bodies have normal height , alignment, and signal intensity. The intervertebral discs hav e normal height and signal intensity. The spinal cord is normal in caliber and signal intensity. There is no significant foraminal or sp inal canal stenosis. Review paraspinal soft tissue structure s reveals cystic change in the right kidney,. Mediastinal structures a re incompletely evaluated and degraded by motion. IMPRESSION: Limited by body habitus and significant motion artifact in the cervical spine sequences. Advanced degenerative changes are great est at C5-6 and C6-7, where there is moderate to severe canal narro wing and severe bilateral foraminal stenosis. Suggestion of cord signal abnormality i n these regions, poorly characterized due to four mentioned orantes itations. No acute clinical findings in the thora cic spine. Signed: JR Garcia Robert MD Report Verified Date/Time: 9 10:13:07 Reading Location: [address] Neuro Re ading Room Procedure Note Interface, External Ris In - 02/12/2019 10:15 AM CDT FINAL REPORT MR, SPINE, THORACIC, WITHOUT CONTRAST, MR, SPINE, CERVICAL, WITHOUT CONTRAST INDICATION: HYPERREFLEXIA,BUTLER SIGN PRESENT,CHRONIC BILATERAL THORCIC BACK PAIN TECHNIQUE: Multiplanar, multisequence unenhanced MR images of the cervical and thoracic spine were obtained. COMPARISON: None FINDINGS: Cervical Spine: Axial images are severely motion degraded. Vertebral bodies demonstrate preserved height. There is straightening of the normal cervical lordosis. Degenerative endplate and disc degenerative changes are most severe at C5-6 and C6-7. There is a mild degree of facet arthropathy noted throughout the cervical spine. No aggressive appearing lesions are present. Cervical cord demonstrates grossly normal caliber. There is suggestion of multifocal T2 hyperintensities throughout the cervical cord, but are inconsistent when comparing axial and sagittal sequences. Signal characteristics are most prominent ventrally/centrally at C3-4 with questionable changes at C5-6 and C6-7. Findings by level: C2/C3: Broad disc bulge without canal compromise. Mild bilateral foraminal stenosis. C3/C4: Central disc protrusion. Mild canal narrowing. Mild foraminal stenosis. C4/C5: Moderate canal narrowing and moderate to severe bilateral foraminal stenosis. C5/C6: Discogenic changes creating moderate to severe canal narrowing. Moderate to severe bilateral foraminal stenosis C6/C7: Moderate canal narrowing. Moderate to severe bilateral foraminal stenosis. C7/T1: No canal or foraminal narrowing. Paraspinal soft tissue structures are unremarkable. Thoracic spine: The vertebral bodies have normal height, alignment, and signal intensity. The intervertebral discs have normal height and signal intensity. The spinal cord is normal in caliber and signal intensity. There is no significant foraminal or spinal canal stenosis. Review paraspinal soft tissue structures reveals cystic change in the right kidney,. Mediastinal structures are incompletely evaluated and degraded by motion. IMPRESSION: Limited by body habitus and significant motion artifact in the cervical spine sequences. Advanced degenerative changes are greatest at C5-6 and C6-7, where there is moderate to severe canal narrowing and severe bilateral foraminal stenosis. Suggestion of cord signal abnormality in these regions, poorly characterized due to four mentioned limitations. No acute clinical findings in the thoracic spine. Signed: JR Garcia Robert MD Report Verified Date/Time: 02/12/2019 10:13:07 Reading Location: [address] Neuro Reading Room Performing Organization Address City/State/Zipcode Ph one Number [employer] * MR thoracic spine without IV contrast (02/12/2019 8:50 AM CDT) Specimen Narrative Performed At FINAL REPORT [employer] [facility] MR, SPINE, THORACIC, WITHOUT CONTRAST, MR, SPINE, CERVICAL, WITHOUT CONTRAST INDICATION: HYPERREFLEXIA,BUTLER SIGN PRESENT,CHRONIC BILATERAL THORCIC BACK PAIN TECHNIQUE:Multiplanar, multisequenc e unenhancedMR images of the cervical and thoracic spine were obtain ed. COMPARISON: None FINDINGS: Cervical Spine: Axial images are severely motion degrad ed. Vertebral bodies demonstrate preserved height. There is straightening of the normal cervical lordosis. Degene rative endplate and disc degenerative changes are most severe at C5-6 and C6-7. There is a mild degree of facet arthropathy noted throughout the cervical spine. No aggressive appearing lesions are pre sent. Cervical cord demonstrates grossly norm al caliber. There is suggestion of multifocal T2 hyperintens ities throughout the cervical cord, but are inconsistent when compari ng axial and sagittal sequences. Signal characteristics are m ost prominent ventrally/centrally at C3-4 with questi onable changes at C5-6 and C6-7. Findings by level: C2/C3: Broad disc bulge without canal c ompromise. Mild bilateral foraminal stenosis. C3/C4: Central disc protrusion. Mild ca nal narrowing. Mild foraminal stenosis. C4/C5: Moderate canal narrowing and mod erate to severe bilateral foraminal stenosis. C5/C6: Discogenic changes creating mode rate to severe canal narrowing. Moderate to severe bilateral foraminal stenosis C6/C7: Moderate canal narrowing. Modera te to severe bilateral foraminal stenosis. C7/T1: No canal or foraminal narrowing. Paraspinal soft tissue structures are u nremarkable. Thoracic spine: The vertebral bodies have normal height , alignment, and signal intensity. The intervertebral discs hav e normal height and signal intensity. The spinal cord is normal in caliber and signal intensity. There is no significant foraminal or sp inal canal stenosis. Review paraspinal soft tissue structure s reveals cystic change in the right kidney,. Mediastinal structures a re incompletely evaluated and degraded by motion. IMPRESSION: Limited by body habitus and significant motion artifact in the cervical spine sequences. Advanced degenerative changes are great est at C5-6 and C6-7, where there is moderate to severe canal narro wing and severe bilateral foraminal stenosis. Suggestion of cord signal abnormality i n these regions, poorly characterized due to four mentioned orantes itations. No acute clinical findings in the thora cic spine. Signed: JR Jose, Steven CORRAL Report Verified Date/Time: 9 10:13:07 Reading Location: [facility] [address] Neuro Re ading Room Procedure Note Interface, External Ris In - 02/12/2019 10:15 AM CDT FINAL REPORT MR, SPINE, THORACIC, WITHOUT CONTRAST, MR, SPINE, CERVICAL, WITHOUT CONTRAST INDICATION: HYPERREFLEXIA,BUTLER SIGN PRESENT,CHRONIC BILATERAL THORCIC BACK PAIN TECHNIQUE: Multiplanar, multisequence unenhanced MR images of the cervical and thoracic spine were obtained. COMPARISON: None FINDINGS: Cervical Spine: Axial images are severely motion degraded. Vertebral bodies demonstrate preserved height. There is straightening of the normal cervical lordosis. Degenerative endplate and disc degenerative changes are most severe at C5-6 and C6-7. There is a mild degree of facet arthropathy noted throughout the cervical spine. No aggressive appearing lesions are present. Cervical cord demonstrates grossly normal caliber. There is suggestion of multifocal T2 hyperintensities throughout the cervical cord, but are inconsistent when comparing axial and sagittal sequences. Signal characteristics are most prominent ventrally/centrally at C3-4 with questionable changes at C5-6 and C6-7. Findings by level: C2/C3: Broad disc bulge without canal compromise. Mild bilateral foraminal stenosis. C3/C4: Central disc protrusion. Mild canal narrowing. Mild foraminal stenosis. C4/C5: Moderate canal narrowing and moderate to severe bilateral foraminal stenosis. C5/C6: Discogenic changes creating moderate to severe canal narrowing. Moderate to severe bilateral foraminal stenosis C6/C7: Moderate canal narrowing. Moderate to severe bilateral foraminal stenosis. C7/T1: No canal or foraminal narrowing. Paraspinal soft tissue structures are unremarkable. Thoracic spine: The vertebral bodies have normal height, alignment, and signal intensity. The intervertebral discs have normal height and signal intensity. The spinal cord is normal in caliber and signal intensity. There is no significant foraminal or spinal canal stenosis. Review paraspinal soft tissue structures reveals cystic change in the right kidney,. Mediastinal structures are incompletely evaluated and degraded by motion. IMPRESSION: Limited by body habitus and significant motion artifact in the cervical spine sequences. Advanced degenerative changes are greatest at C5-6 and C6-7, where there is moderate to severe canal narrowing and severe bilateral foraminal stenosis. Suggestion of cord signal abnormality in these regions, poorly characterized due to four mentioned limitations. No acute clinical findings in the thoracic spine. Signed: JR Jose, Steven CORRAL Report Verified Date/Time: 02/12/2019 10:13:07 Reading Location: [facility] C[facility]V Neuro Reading Room Performing Organization Address City/State/Zipcode Ph one Number GE RIS after 12/19/2018 Insurance Payer Benefit Subscriber ID Type Phone Address Plan / Group [employer] - [employer] C[employer] xxxxxxxxxxx HMO/POS NETWORK Advance Directives For more information, please contact: [facility] [address] [place] [address] Date Inactivated Comments Code Status Date Activated 01/25/2015 8:40 PM Full Code 01/22/2015 3:28 PM This code status was determined by: Patient 01/08/2015 2:56 PM Full Code 01/07/2015 1:50 AM This code status was determined by: Patient 07/23/2013 7:30 PM All possible means of suppor t, including: cardiac massage, mechanical ventilation, and defibrillation will be used to support life. Code ONE 07/23/2013 9:56 AM
--- OUTSIDE RECORDS SUMMARY | 2019-12-20 22:49 | XMS REPORT | Continuity of Care Document ---
Author Author [facility] t Organization [facility] t Address [address] [place] [address] Phone Unavailable Care Team Providers Care Computerized [place] Recorder Name Role Phone JUWAN MONAE PCP Unavailable Chelle JOHNSON Attphys Unavailable Shirley Tracy DO Attphys Sharla ARIZA Attphys Unavailable Dunia ARIAS Attphys Unavailable Chelle JOHNSON Admphys Unavailable WAQAS HYDE Admphys Unavailable Payers Payer Name Policy Type Policy Number Effective Date Expiration Date Meseret simon [facility] [id number] 2010 00:00:00 [facility] CIGNA - MGD CAREC[employer]NA [facility] NETWORKxxxxxxxxxxxHMO/POS xxxxxx xxxxx [facility] [id number] [facility] Problems Condition Name Condition Details Condition Category Status Onset Date Resolution Date Last Treatment Date Treating Clinician Comments Source Mild single current episode of major depressive disord er Mild single current episode of major depressive disorder Disease Active 2016-10-11 00:00:00 [facility] CKD stage 3 due to type 2 diabetes mellitus CKD stage 3 due to type 2 diabetes mellitus Disease Active 2016-10-11 00:00:00 [facility] Recurrent exertional angina Recurrent exertional angina Disease Active 2015-01-25 00:00:00 [facility] Abnormal nuclear cardiac imaging test 01-24-2015 Abnorm al nuclear cardiac imaging test 01-24-2015 Disease Active 2015-01-25 00:00:00 [facility] Type 2 diabetes mellitus with hyperlipidemia Type 2 di abetes mellitus with hyperlipidemia Disease Active 2015-01-23 00:00:00 [facility] Coronary atherosclerosis Coronary atherosclerosis Disease Acti ve 2015-01-23 00:00:00 Overview: UPDATED BY ICD10 S NOMED/IMO UPDATES [facility] Essential hypertension, benign Essential hypertension, benign Disea se Active 2015-01-23 00:00:00 [facility] Chest pain Chest pain Disease Active 2015-01-22 00:00:00 Overview: UPDATED BY ICD10 SNOMED/IMO UPDATES [facility] Allergies, Adverse Reactions, Alerts Allergy Name Allergy Type Status Severity Reaction(s) Onset Date Inacti ve Date Treating Clinician Comments Source No Known Allergies DA Active U 2018-03-05 00:00:00 [facility] No Known Allergies DA Active U 2017-10-24 00:00:00 [facility] Social History Social Habit Start Date Stop Date Quantity Comments Source Sex Assigned At [facility] Smoking Status Start Date Stop Date Source Never smoker [facility] Medications Ordered Medication Name Filled Medication Name Start Date Stop Da te Current Medication? Ordering Clinician Indication Dosage Frequency Signature (SIG) Comments Components Source prasugrel (EFFIENT) 10 mg Tab tablet 2016-10-14 00:00:00 Ye s 10mg QD Take 1 tablet (10 mg total) by mouth daily. [facility] hydrALAZINE (APRESOLINE) 100 MG tablet 2016-10-13 16:16:48 Yes 100mg Q.[id number] Take 100 mg by mouth 3 (three) times daily . [facility] indomethacin (INDOCIN) 50 MG capsule 2016-10-13 13:39:35 Yes a type of joint disorder due to excess uric acid in the blood called gout 50mg Take 50 mg by mouth daily as needed. [facility] fenofibrate (TRIGLIDE,LOFIBRA) 160 MG tablet 2016-10-11 14:57:29 Yes 48mg QD Take 48 mg by mouth daily . [facility] acetaminophen-codeine (TYLENOL #3) 300-30 mg per tablet 2016-10-11 14:57:29 Yes 1{tbl} Take 1 tablet b y mouth every 4 (four) hours as needed for Pain. [facility] cloNIDine (CATAPRES-TTS) 0.3 mg/24 hr patch 2016-10-11 14:57:29 Yes 1{patch} Q7D Place 1 patch onto the skin once a week. [facility] FLUoxetine (PROZAC) 40 MG capsule 2016-10-11 14:57:29 Yes 40mg QD Take 40 mg by mouth daily. [facility] isosorbide mononitrate (IMDUR) 60 MG 24 hr tablet 2016-10-11 14:57:29 Yes 60mg QD Take 60 mg by mouth daily. [facility] losartan-hydroCHLOROthiazide (HYZAAR) 100-25 mg per tablet 2016-10-11 14:57:29 Yes 1{tbl} QD Take 1 tablet by mouth daily. [facility] mupirocin (BACTROBAN) 2 % ointment 2016-10-11 14:57:29 Y es Q.[id number] Apply topically 3 (three) times daily. [facility] nitroglycerin (NITROSTAT) 0.4 MG SL tablet 2016-10-11 14:57:[address] 0.4 mg under the tongue every 5 (f dotty) minutes as needed for Chest pain Put 1 pill under tongue every 5min as needed for chest pain.No more than 3 doses in 15min.Call 911 if pain is unrelieved 5min after 1st dose . [facility] polyethylene glycol (GOLYTELY) 236-22.74-6.74 -5.86 gram pola ution 2016-10-11 14:57:29 Yes Take by mouth once. [facility] aspirin 81 MG EC tablet 2015-01-25 00:00:00 Yes 81mg QD Take 1 tablet (81 mg total) by mouth daily. [facility] LIRAGLUTIDE (VICTOZA SUBQ) 2015-01-06 23:31:57 Yes 1.25U QD Inject 1.25 Units subcutaneously daily. [facility] glimepiride (AMARYL) 4 MG tablet 2013-07-23 09:07:49 Yes 4mg Q.5D Take 4 mg by mouth 2 (two) times daily. [facility] labetalol (NORMODYNE) 300 MG tablet 2013-07-23 09:07:49 Yes 300mg Q.5D Take 300 mg by mouth 2 (two) times daily. [facility] atorvastatin (LIPITOR) 40 MG tablet 2013-07-23 09:07:48 Yes 40mg QD Take 40 mg by mouth daily. [facility] Allopurinol 300 Mg Tablet Allopurinol 300 Mg Tablet Yes 300 Daily [facility] Aspirin (Aspir 81) 81 Mg Tablet. Aspirin (Aspir 81) 81 Mg Tablet. Yes 81 Daily [facility] Atorvastatin Calcium (Lipitor) 20 Mg Tablet Atorvastat in Calcium (Lipitor) 20 Mg Tablet Yes 80 Daily [facility] Basaglar Basaglar Yes 120 Bedtime [facility] Clonidine Hcl 0.3 Mg Tablet Clonidine Hcl 0.3 Mg Tablet Yes .[address] [facility] Furosemide 10 Mg/1 Ml Vial Furosemide 10 Mg/1 Ml Vial Yes 20 Twice A Day [facility] Hydralazine Hcl 25 Mg Tab Hydralazine Hcl 25 Mg Tab Yes 100 Three Times A Day [facility] Isosorbide Mononitrate (Isosorbide Mononitrate Er) 30 Mg Tab.er.24h Isosorbide Mononitrate (Isosorbide Mononitrate Er) 30 Mg Tab.er.24h Yes 120 Daily [facility] Labetalol Hcl 200 Mg Tablet Labetalol Hcl 200 Mg Tablet Yes 200 Every 12 Hours [facility] Losartan Potassium 25 Mg Tablet Losartan Potassium 25 Mg Tablet Yes 25 Daily [facility] Nifedipine (Nifedipine Er) 30 Mg Tab.er.24 Nifedipine (Nifedipine Er) 30 Mg Tab.er.24 Yes 90 Daily [facility] Pantoprazole Sodium (Protonix) 40 Mg Tablet. Pantopr azole Sodium (Protonix) 40 Mg Tablet. Yes 40 Daily [facility] Prasugrel Hcl (Effient) 10 Mg Tablet Prasugrel Hcl (Effient) 10 Mg Tablet Yes 10 Daily [facility] Bupropion Hcl (Bupropion Xl) 150 Mg Tab.er.24h, 150 Mg Oral Bupropion Hcl (Bupropion Xl) 150 Mg Tab.er.24h, 150 Mg Oral 2019-08-13 00:00:00 No 150 Daily [facility] Colchicine (Colcrys) 0.6 Mg Tablet, 0.6 Mg Oral Colchi cine (Colcrys) 0.6 Mg Tablet, 0.6 Mg Oral 2019-08-13 00:00:00 No .6 Ever y 48 Hours [facility] Cyclobenzaprine Hcl 10 Mg Tablet, 10 Mg Oral Cyclobenz aprine Hcl 10 Mg Tablet, 10 Mg Oral 2019-08-13 00:00:00 No 10 B edtime as needed for Muscle Spasms [facility] Diclofenac Potassium 50 Mg Tablet, 50 Mg Oral Diclofen ac Potassium 50 Mg Tablet, 50 Mg Oral 2019-08-13 00:00:00 No 50 as needed for Mild Pain (1-3) [facility] Gabapentin 300 Mg Capsule, 300 Mg Oral Gabapentin 300 Mg Capsule , 300 Mg Oral 2019-08-13 00:00:00 No 300 Bedtime [facility] Tizanidine Hcl 4 Mg Tablet, 4 Mg Oral Tizanidine Hcl 4 Mg Tablet , 4 Mg Oral 2019-08-13 00:00:00 No 4 Bedtime as needed fo r Muscle Spasms [facility] Immunizations Ordered Immunization Name Filled Immunization Name Date Status Comments Source Pneumococcal Polysaccharide (Pneumovax) 2015-01-23 00:00:0 0 Completed [facility] Procedures Procedure Date / Time Performed Performing Clinician Sour e PRQ CARD STENT W/ANGIO 1 VSL 2019-08-12 00:00:00 LEONOR MCARTHUR [facility] L HRT ARTERY/VENTRICLE ANGIO 2019-08-12 00:00:00 LEONOR MCARTHUR [facility] X-ray of chest, two views 2019-08-12 00:00:00 CABRERASÁNCHEZ VARINDER I [facility] Computed tomography of chest with contrast 2019-08-12 00:00:00 Sharla SÁNCHEZ MADERA [facility] MR CERVICAL SPINE WITHOUT IV CONTRAST 2019-02-12 09:35:00 Shirley Tracy [facility] MR THORACIC SPINE WITHOUT IV CONTRAST 2019-02-12 08:50:00 [facility] Start Date/Time End Date/Time [facility] ID Source 2019-08-12 22:30:00 2019-08-14 18:07:00 Discharged Inpatient (obs) 1 ELLA JOHNSON [facility] [id number] [facility] 2018-11-21 06:40:00 2018-11-21 10:42:00 Departed Emergency Room 1 SE ARIZA [facility] [id number] [facility] 2018-09-30 12:49:00 2018-10-01 12:30:00 Discharged Inpatient (obs) 1 ELLA JOHNSON [facility] [id number] [facility] Results Test Description Test Time Test Comments Results Result Comments Source Bedside Glucose 2019-08-14 16:09:00 Test Item Bedside Glucose (test code = 81359-2) 134 70-120 H Meter ID: [id number] [facility] HospitalBedside Glucose 2019-08-14 16:09:00* Test Item Value Reference Range Interpretation Comments Bedside Glucose (test code = 48332-6) 134 70-120 H Meter ID: [id number] Hospitaltress Test - Treadmill [id number] 12:10:00 [place] [address] Patient Name : TROY VALENTINE MR #: [id number] : 1960 Age/Sex: 59/M Adm Physician : ELLA JOHNSON MD Admit Date : 08/12/19 Location : MED/SURG2 Room/Bed : [facility] REPORT: Myov iew Stress Test DATE OF STUDY: 08/13/2019 09:24:00 Stress Test - Alexi zhang ONLY TITLE OF REPORT: Exercise nuclear stress test. INDICATION FOR STUDY: Chest pain, highly suspicious of new onset angina in a patient wi th previous history of CAD and abnormal EKG. TECHNICAL DETAILS: After ri sks, benefits, pros and cons of exercise nuclear stress test were explained to the patient, the patient agreed to proceed. He was brought down to the nucle ar lab, where he initially received 11 mCi dose of technetium-99m tetrofosmin intravenously and after 40 minutes the patient was taken to the [employer] SPECT camera for resting myocardial perfusion imaging. Afterwards, he was brought to the [facility] lab, where 12-lead EKG monitoring and blood pressure monitoring were obt ained. He exercised on a Gomez protocol going from a baseline heart rate of 8 7 beats per minute to a maximum of 130 beats per minute, which is submax from our target heart rate of 137 beats per minute. Blood pressure went from 148/8 0 to 161/80, which is appropriate hemodynamic response. At peak exercise, whi ch was 5 minutes and 22 seconds in stage II of the protocol, the patient recei zeynep 33 millicurie dose of technetium-99m tetrofosmin intravenously as a stress agent. Underlying EKG revealed normal sinus rhythm, delayed R to S wave cabrera sition and no ST-T wave changes at baseline and at peak exercise there was bor derline lateral ischemic EKG changes and the patient developed chest pain sympto ms compatible with his angina, which brought him to this hospitalization. Aga in, the stress protocol was submax and terminated early on account of severe c hest pain consistent with angina. At that point in time, after good 25 minute s later, the patient was then taken back to the SPECT camera for stress myocar dial perfusion imaging. FINDINGS: 1. Resting myocardial perfusion to ging reveals largely normal tracer uptake. 2. Stress myocardial perfusion imag ing reveals a moderate-size decreased uptake in the anterior and anterolateral wall that is mild in intensity and not present on resting image. 3. Follow ing gated measurements were obtained. End-diastolic volume is 129 mL, end sys tolic volume 63 mm, calculated left ventricular ejection fraction is 51% with la rgely normal wall motion. 4. Exercise treadmill stress test portion of this study was positive submaximal stress test. CONCLUSIONS: 1. Abnormal myocardial perfusion imaging study revealing a moderate size decreased uptake of the anterior and anterolateral wall concerning for ischemia. 2. Exercise treadmill stress test portion of the stress test is positive for ischemic EKG changes and symptoms. 3. Normal left ventricular function, EF 51%. 4. Find ings of the stress test and nuclear could be underestimating on account of this being a submaximal protocol. 5. Overall, this study is compatible with at least a moderate risk stress test. MD ALFREDO Lozano/ALEKSANDR /[id number] Signature Date Dictated By: CHELY MCARTHUR MD Transcribed By: ALEKSANDR on 08/14/19 <Electronically signed by ARMANDO MCARTHUR MD>for CHELY MCARTHUR MD<<Signature on File>> 08/15/19 0953 COPY TO: Creatine Kinase [id number] 07:02:00* Test Item Value Reference Range Interpretation Comments Creatine Kinase MB (test code = 69473-4) 1.40 0-5.0 [facility] [id number] 07:02:00* Test Item Value Reference Range Interpretation Comments Troponin I (test code = 01377-6) 0.009 0-0.300 [facility]Creat[facility] Kinase [id number] 07:02:00* Test Item Value Reference Range Interpretation Comments Creatine Kinase MB (test code = 40403-1) 1.40 0-5.0 [facility]Troponin [id number] 07:02:00* Test Item Value Reference Range Interpretation Comments Troponin I (test code = 45674-8) 0.009 0-0.300 [facility]Creatine [id number] 06:15:00* Test Item Value Reference Range Interpretation Comments Creatine Kinase (test code = 2157-6) 59 30-200 [facility]Creat[facility] Hfuhio8573-13-42 06:15:00* Test Item Value Reference Range Interpretation Comments Creatine Kinase (test code = 2157-6) 59 30-200 [facility] Xylsz4405-90-47 05:54:00* Test Item Value Reference Range Interpretation Comments Sodium Level (test code = 2951-2) 141 136-145 [facility]Potassium Jglfa1212-50-59 05:54:00* Test Item Value Reference Range Interpretation Comments Potassium Level (test code = 2823-3) 3.7 3.5-5.1 [facility] HospitalChloride Sjisg6875-23-57 05:54:00* Test Item Value Reference Range Interpretation Comments Chloride Level (test code = 2075-0) 106 98-107 [facility] HospitalCarbon Dioxide Iixwv6218-86-57 05:54:00* Test Item Value Reference Range Interpretation Comments Carbon Dioxide Level (test code = 2028-9) 27 22-29 [facility] HospitalAnion [id number] 05:54:00* Test Item Value Reference Range Interpretation Comments Anion Gap (test code = 45901-9) 11.7 8-16 [facility]Blood Urea Bpchcazd5435-10-48 05:54:00* Test Item Value Reference Range Interpretation Comments Blood Urea Nitrogen (test code = 3094-0) 20 7-26 [facility] HospitalCreatinine2020-04-02 05:54:00* Test Item Value Reference Range Interpretation Comments Creatinine (test code = 2160-0) 1.48 0.72-1.25 H [facility] HospitalBUN/Creatinine Efiii1275-46-73 05:54:00* Test Item Value Reference Range Interpretation Comments BUN/Creatinine Ratio (test code = 3097-3) 14 6-25 [facility] HospitalEstimat Glomerular Filtration Rate 2019-08-14 05:54:00* Test Item Value Reference Range Interpretation Comments Estimat Glomerular Filtration Rate (test code = 123561570) 49 >60 L Ranges were taken from the National Kidney Disease Education Program and the [facility] Foundation literature.Reference ranges:60 or greater: Ofvzea35-59 ( for 3 consecutive months): Chronic kidney disease 15 or less: Kidney failureTyler County HospitalGlucose Xxybn5322-92-18 05:54:00* Test Item Value Reference Range Interpretation Comments Glucose Level (test code = XIU0290) 145 74-118 H [facility] HospitalCalcium Wqtqf9928-36-00 05:54:00* Test Item Value Reference Range Interpretation Comments Calcium Level (test code = 41237-6) 9.5 8.4-10.2 [facility] HospitalTotal Vaxlcromq5691-52-48 05:54:00* Test Item Value Reference Range Interpretation Comments Total Bilirubin (test code = 1975-2) 0.5 0.2-1.2 [facility] HospitalAspartate Amino Transf (AST/SGOT) 2019-08-14 05:54:00* Test Item Value Reference Range Interpretation Comments Aspartate Amino Transf (AST/SGOT) (test code = Aspartate Amino Transf (AST/SGOT)) 19 5-34 [facility] HospitalAlanine Aminotransferase (ALT/SGPT) 2019-08-14 05:54:00* Test Item Value Reference Range Interpretation Comments Alanine Aminotransferase (ALT/SGPT) (test code = 1742-6) 27 0-55 [facility] HospitalTotal Vuzhpey4113-48-87 05:54:00* Test Item Value Reference Range Interpretation Comments Total Protein (test code = 2885-2) 6.0 6.5-8.1 L [facility] HospitalAlbumin2020-04-02 05:54:00* Test Item Value Reference Range Interpretation Comments Albumin (test code = 1751-7) 3.4 3.5-5.0 L [facility] HospitalGlobulin2020-04-02 05:54:00* Test Item Value Reference Range Interpretation Comments Globulin (test code = 93597-5) 2.6 2.3-3.5 [facility] HospitalAlbumin/Globulin Ueujc0521-01-78 05:54:00 * Test Item Value Reference Range Interpretation Comments Albumin/Globulin Ratio (test code = 1759-0) 1.3 0.8-2.0 [facility] HospitalAlkaline Axisnykhufa8691-64-10 05:54:00* Test Item Value Reference Range Interpretation Comments Alkaline Phosphatase (test code = 6768-6) 89 40-150 [facility]odium Zigfc2601-37-05 05:54:00* Test Item Value Reference Range Interpretation Comments Sodium Level (test code = 2951-2) 141 136-145 [facility] HospitalPotassium Nioua9357-08-41 05:54:00* Test Item Value Reference Range Interpretation Comments Potassium Level (test code = 2823-3) 3.7 3.5-5.1 [facility] HospitalChloride Bjory9128-51-49 05:54:00* Test Item Value Reference Range Interpretation Comments Chloride Level (test code = 2075-0) 106 98-107 [facility] HospitalCarbon Dioxide Wotkh5146-05-00 05:54:00* Test Item Value Reference Range Interpretation Comments Carbon Dioxide Level (test code = 2028-9) 27 22-29 [facility] HospitalAnion Pla1475-95-44 05:54:00* Test Item Value Reference Range Interpretation Comments Anion Gap (test code = 11517-7) 11.7 8-16 [facility] HospitalBlood Urea Ffartgim6747-54-85 05:54:00* Test Item Value Reference Range Interpretation Comments Blood Urea Nitrogen (test code = 3094-0) 20 7-26 [facility] HospitalCreatinine2020-04-02 05:54:00* Test Item Value Reference Range Interpretation Comments Creatinine (test code = 2160-0) 1.48 0.72-1.25 H [facility] HospitalBUN/Creatinine Gicjf7371-33-39 05:54:00* Test Item Value Reference Range Interpretation Comments BUN/Creatinine Ratio (test code = 3097-3) 14 6-25 [facility] HospitalEstimat Glomerular Filtration Rate 2019-08-14 05:54:00* Test Item Value Reference Range Interpretation Comments Estimat Glomerular Filtration Rate (test code = 087605184) 49 >60 L Ranges were taken from the National Kidney Disease Education Program and the [facility] literature.Reference ranges:60 or greater: Bawelp39-78 ( for 3 consecutive months): Chronic kidney disease 15 or less: Kidney failureCH[facility]Glucose Ohuvm8783-81-40 05:54:00* Test Item Value Reference Range Interpretation Comments Glucose Level (test code = XWM5304) 145 74-118 H [facility] HospitalCalcium Edwtn0415-55-08 05:54:00* Test Item Value Reference Range Interpretation Comments Calcium Level (test code = 78584-4) 9.5 8.4-10.2 [facility] HospitalTotal Rozvrjvae4386-34-56 05:54:00* Test Item Value Reference Range Interpretation Comments Total Bilirubin (test code = 1975-2) 0.5 0.2-1.2 [facility] HospitalAspartate Amino Transf (AST/SGOT) 2019-08-14 05:54:00* Test Item Value Reference Range Interpretation Comments Aspartate Amino Transf (AST/SGOT) (test code = Aspartate Amino Transf (AST/SGOT)) 19 5-34 [facility] HospitalAlanine Aminotransferase (ALT/SGPT) 2019-08-14 05:54:00* Test Item Value Reference Range Interpretation Comments Alanine Aminotransferase (ALT/SGPT) (test code = 1742-6) 27 0-55 [facility] HospitalTotal Zjcsfja9536-65-22 05:54:00* Test Item Value Reference Range Interpretation Comments Total Protein (test code = 2885-2) 6.0 6.5-8.1 L [facility] HospitalAlbumin2020-04-02 05:54:00* Test Item Value Reference Range Interpretation Comments Albumin (test code = 1751-7) 3.4 3.5-5.0 L [facility] HospitalGlobulin2020-04-02 05:54:00* Test Item Value Reference Range Interpretation Comments Globulin (test code = 69960-1) 2.6 2.3-3.5 [facility] HospitalAlbumin/Globulin Aslaw0250-59-26 05:54:00 * Test Item Value Reference Range Interpretation Comments Albumin/Globulin Ratio (test code = 1759-0) 1.3 0.8-2.0 [facility] HospitalAlkaline Bnxjwiygrbf9186-60-64 05:54:00* Test Item Value Reference Range Interpretation Comments Alkaline Phosphatase (test code = 6768-6) 89 40-150 [facility] HospitalWhite Blood Qykse9786-32-13 05:37:00* Test Item Value Reference Range Interpretation Comments White Blood Count (test code = 6690-2) 9.02 4.8-10.8 [facility] HospitalRed Blood Nhmpj7922-81-77 05:37:00* Test Item Value Reference Range Interpretation Comments Red Blood Count (test code = 789-8) 3.95 4.3-5.7 L [facility] HospitalHemoglobin2020-04-02 05:37:00* Test Item Value Reference Range Interpretation Comments Hemoglobin (test code = 64622-7) 11.6 14.0-18.0 L [facility] HospitalHematocrit2020-04-02 05:37:00* Test Item Value Reference Range Interpretation Comments Hematocrit (test code = 4544-3) 35.6 38.2-49.6 L [facility] HospitalMean Corpuscular Ebsvwd3710-61-19 05:37:00* Test Item Value Reference Range Interpretation Comments Mean Corpuscular Volume (test code = 787-2) 90.1 81-99 [facility] HospitalMean Corpuscular Npjzolskvr7488-76-19 05:37:00* Test Item Value Reference Range Interpretation Comments Mean Corpuscular Hemoglobin (test code = 785-6) 29.4 28-32 [facility] HospitalMean Corpuscular Hemoglobin Concent 2019-08-14 05:37:00* Test Item Value Reference Range Interpretation Comments Mean Corpuscular Hemoglobin Concent (test code = 786-4) 32.6 31-35 [facility] HospitalRed Cell Distribution Ypstk4597-01-13 05:37:00* Test Item Value Reference Range Interpretation Comments Red Cell Distribution Width (test code = 79338-6) 14.5 11.7 -14.4 H [facility] HospitalPlatelet Mfnil6431-89-78 05:37:00* Test Item Value Reference Range Interpretation Comments Platelet Count (test code = 777-3) 167 140-360 [facility] HospitalNeutrophils (%) (Auto)2019-08-14 05:37:00 * Test Item Value Reference Range Interpretation Comments Neutrophils (%) (Auto) (test code = 13524-9) 60.6 38.7-80.0 [facility] HospitalLymphocytes (%) (Auto)2019-08-14 05:37:00 * Test Item Value Reference Range Interpretation Comments Lymphocytes (%) (Auto) (test code = 736-9) 23.8 18.0-39.1 [facility] HospitalMonocytes (%) (Auto)2019-08-14 05:37:00* Test Item Value Reference Range Interpretation Comments Monocytes (%) (Auto) (test code = 5905-5) 7.3 4.4-11.3 [facility] HospitalEosinophils (%) (Auto)2019-08-14 05:37:00 * Test Item Value Reference Range Interpretation Comments Eosinophils (%) (Auto) (test code = 713-8) 6.8 0.0-6.0 H [facility] HospitalBasophils (%) (Auto)2019-08-14 05:37:00* Test Item Value Reference Range Interpretation Comments Basophils (%) (Auto) (test code = 706-2) 0.9 0.0-1.0 [facility] HospitalIM GRANULOCYTES %2019-08-14 05:37:00* Test Item Value Reference Range Interpretation Comments IM GRANULOCYTES % (test code = IM GRANULOCYTES %) 0.6 0.0- 1.0 [facility] HospitalNeutrophils # (Auto)2019-08-14 05:37:00* Test Item Value Reference Range Interpretation Comments Neutrophils # (Auto) (test code = 751-8) 5.5 2.1-6.9 [facility] HospitalLymphocytes # (Auto)2019-08-14 05:37:00* Test Item Value Reference Range Interpretation Comments Lymphocytes # (Auto) (test code = 29367-0) 2.2 1.0-3.2 [facility] HospitalMonocytes # (Auto)2019-08-14 05:37:00* Test Item Value Reference Range Interpretation Comments Monocytes # (Auto) (test code = 742-7) 0.7 0.2-0.8 [facility]osinophils # (Auto)2019-08-14 05:37:00* Test Item Value Reference Range Interpretation Comments Eosinophils # (Auto) (test code = 711-2) 0.6 0.0-0.4 H [facility]Basophils # (Auto)2019-08-14 05:37:00* Test Item Value Reference Range Interpretation Comments Basophils # (Auto) (test code = 704-7) 0.1 0.0-0.1 [facility]Absolute Immature Granulocyte (auto 2019-08-14 05:37:00* Test Item Value Reference Range Interpretation Comments Absolute Immature Granulocyte (auto (todd t code = Absolute Immature Granulocyte (auto) 0.05 0-0.1 [facility] HospitalWhite Blood Nittb1877-71-41 05:37:00* Test Item Value Reference Range Interpretation Comments White Blood Count (test code = 6690-2) 9.02 4.8-10.8 [facility]Red Blood Fecak9451-62-24 05:37:00* Test Item Value Reference Range Interpretation Comments Red Blood Count (test code = 789-8) 3.95 4.3-5.7 L [facility]Hemoglobin2020-04-02 05:37:00* Test Item Value Reference Range Interpretation Comments Hemoglobin (test code = 70270-9) 11.6 14.0-18.0 L [facility]Hematocrit2020-04-02 05:37:00* Test Item Value Reference Range Interpretation Comments Hematocrit (test code = 4544-3) 35.6 38.2-49.6 L [facility] HospitalMean Corpuscular Ktlpvs6965-62-35 05:37:00* Test Item Value Reference Range Interpretation Comments Mean Corpuscular Volume (test code = 787-2) 90.1 81-99 [facility]Mean Corpuscular Vjgqurkeiw4872-02-17 05:37:00* Test Item Value Reference Range Interpretation Comments Mean Corpuscular Hemoglobin (test code = 785-6) 29.4 28-32 [facility]Mean Corpuscular Hemoglobin Concent 2019-08-14 05:37:00* Test Item Value Reference Range Interpretation Comments Mean Corpuscular Hemoglobin Concent (test code = 786-4) 32.6 31-35 [facility]Red Cell Distribution Iuosa6726-12-07 05:37:00* Test Item Value Reference Range Interpretation Comments Red Cell Distribution Width (test code = 09416-1) 14.5 11.7 -14.4 H [facility] HospitalPlatelet Blydk3912-04-87 05:37:00* Test Item Value Reference Range Interpretation Comments Platelet Count (test code = 777-3) 167 140-360 [facility] HospitalNeutrophils (%) (Auto)2019-08-14 05:37:00 * Test Item Value Reference Range Interpretation Comments Neutrophils (%) (Auto) (test code = 46926-2) 60.6 38.7-80.0 [facility] HospitalLymphocytes (%) (Auto)2019-08-14 05:37:00 * Test Item Value Reference Range Interpretation Comments Lymphocytes (%) (Auto) (test code = 736-9) 23.8 18.0-39.1 [facility]Monocytes (%) (Auto)2019-08-14 05:37:00* Test Item Value Reference Range Interpretation Comments Monocytes (%) (Auto) (test code = 5905-5) 7.3 4.4-11.3 [facility]Eosinophils (%) (Auto)2019-08-14 05:37:00 * Test Item Value Reference Range Interpretation Comments Eosinophils (%) (Auto) (test code = 713-8) 6.8 0.0-6.0 H [facility]Basophils (%) (Auto)2019-08-14 05:37:00* Test Item Value Reference Range Interpretation Comments Basophils (%) (Auto) (test code = 706-2) 0.9 0.0-1.0 [facility] HospitalIM GRANULOCYTES %2019-08-14 05:37:00* Test Item Value Reference Range Interpretation Comments IM GRANULOCYTES % (test code = IM GRANULOCYTES %) 0.6 0.0- 1.0 [facility] HospitalNeutrophils # (Auto)2019-08-14 05:37:00* Test Item Value Reference Range Interpretation Comments Neutrophils # (Auto) (test code = 751-8) 5.5 2.1-6.9 [facility]Lymphocytes # (Auto)2019-08-14 05:37:00* Test Item Value Reference Range Interpretation Comments Lymphocytes # (Auto) (test code = 68889-9) 2.2 1.0-3.2 [facility]Monocytes # (Auto)2019-08-14 05:37:00* Test Item Value Reference Range Interpretation Comments Monocytes # (Auto) (test code = 742-7) 0.7 0.2-0.8 [facility]Eosinophils # (Auto)2019-08-14 05:37:00* Test Item Value Reference Range Interpretation Comments Eosinophils # (Auto) (test code = 711-2) 0.6 0.0-0.4 H [facility]Basophils # (Auto)2019-08-14 05:37:00* Test Item Value Reference Range Interpretation Comments Basophils # (Auto) (test code = 704-7) 0.1 0.0-0.1 [facility]Absolute Immature Granulocyte (auto 2019-08-14 05:37:00* Test Item Value Reference Range Interpretation Comments Absolute Immature Granulocyte (auto (todd t code = Absolute Immature Granulocyte (auto) 0.05 0-0.1 [facility] HospitalTriglycerides Ylbla5255-24-05 09:56:00* Test Item Value Reference Range Interpretation Comments Triglycerides Level (test code = 2571-8) 279 0-149 H [facility] HospitalCholesterol Wjxff4168-47-14 09:56:00* Test Item Value Reference Range Interpretation Comments Cholesterol Level (test code = 2093-3) 190 0-199 Less than 200 mg/dL Low Pimt357 - 239 mg/dL Borderline Ynif288 m g/dl and greater High Risk [facility] HospitalLDL Jgjqmdrbiwj1158-12-33 09:56:00* Test Item Value Reference Range Interpretation Comments LDL Cholesterol (test code = 2089-1) 107 60-130 [facility] HospitalHDL Nvjyshndomk8468-89-53 09:56:00* Test Item Value Reference Range Interpretation Comments HDL Cholesterol (test code = 2085-9) 27 40-60 L [facility] HospitalCholesterol/HDL Jgrit0518-85-19 09:56:00 * Test Item Value Reference Range Interpretation Comments Cholesterol/HDL Ratio (test code = 9830-1) 7.0 3.9-4.7 H [facility] HospitalTriglycerides Fvxjm1070-89-39 09:56:00* Test Item Value Reference Range Interpretation Comments Triglycerides Level (test code = 2571-8) 279 0-149 H [facility] HospitalCholesterol Mlxqm7161-21-88 09:56:00* Test Item Value Reference Range Interpretation Comments Cholesterol Level (test code = 2093-3) 190 0-199 Less than 200 mg/dL Low Sboh462 - 239 mg/dL Borderline Ssmv732 m g/dl and greater High Risk [facility] HospitalLDL Lxgznceytld7434-77-18 09:56:00* Test Item Value Reference Range Interpretation Comments LDL Cholesterol (test code = 2089-1) 107 60-130 [facility] HospitalHDL Xjmbehnsjks2593-49-22 09:56:00* Test Item Value Reference Range Interpretation Comments HDL Cholesterol (test code = 2085-9) 27 40-60 L [facility] HospitalCholesterol/HDL Pyqhc1036-19-81 09:56:00 * Test Item Value Reference Range Interpretation Comments Cholesterol/HDL Ratio (test code = 9830-1) 7.0 3.9-4.7 H [facility] HospitalCT CHEST [id number] 22:31:00 [facility] [address] [place] [address] Patient Name: TROY VALENTINE MR #: [id number] : 1960 Age/Sex: 59/M Req #: [id number] Adm Physician: Ordered by: SÁNCHEZ CABRERA DO Report #: [id number] Location: ER Room/Bed: Procedure: [id number] CT/ CT CHEST W Exam Date: Exam Time: REPORT STATUS: Signed CT chest with enhancement CPT code: 99268 INDICATION: Right shoulder pain radiating to mid mckee um, shortness of breath, diarrhea TECHNIQUE: 2.5 mm collimation axial to ges obtained from the thoracic inlet to the level of the diaphragm following u neventful administration of 100 cc of low osmolar, nonionic intravenous contra st. RADIATION DOSE: Total DLP: 1196.71 mGy*cm Estimated effec tive dose: (DLP x 0.015 x size factor) mSv CTDIvol has been reviewed. It is below the limits set by the Radiation Protocol Committee (RPC). Dose r eduction techniques used: Automated exposure control, adjustment of the mAs an d/or kVp according to patient size, standardized low-dose protocol, and/or ite rative reconstruction technique. Comparison: Chest x-ray 08/12/2019. Chest x -ray 11/21/2018 CHEST FINDINGS: Lymph nodes: No enlarged axillary, supr aclavicular, mediastinal, or hilar lymph nodes. Thyroid: Visualized porti ons are normal. Mediastinum: The heart is top normal in size. No pericardia l effusion. There are coronary artery calcifications and a suspected stent in the left anterior descending coronary artery. Main pulmonary artery measures 3 .8 cm in diameter. The ascending aorta measures 3.7 cm in diameter. No filling defects in the great vessels. The esophagus is collapsed. Lungs: R ight Lung: Scattered areas of air trapping. No nodules or infiltrates. Left Lung: Scattered areas of air trapping. 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 No nodules or infiltrates Airways: Mild to moderate tracheobro nchomalacia. No filling defects. Pleura: No pleural effusion or pleural bas ed mass. Stable eventration of the diaphragms, right greater than left. A BDOMEN: Lobulated hepatic contours suggestive of cirrhosis. There is recan alization of the vein. No splenomegaly. No mass in the visualized portions of the upper abdomen. Bones: Mild degenerative changes of the spine. No foca l osseous lesions. IMPRESSION: 1. No evidence of pulmonary embolus or aortic dissection. Prominent main pulmonary artery is suggestive of pulmonary artery hypertension. Recommend further characterization with echocardiogram. 2. 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 No infiltrates or CT evidence of bronchitis. 3. Lobulated hepatic contours suggestive of cirrhosis. Signed by: Dr. Luis Valentine MD on 08/12/2019 10:40 PM Dictated By: DEVEN Torre 39 Transcribed By: KATEY on 08/12/192239 COPY TO: SÁNCHEZ CABRERA DO CHEST 2 IWXJK3487-55-13 20:59:00 [place] [address] Patient Name: TROY VALENTINE MR #: [id number] : 1960 Age/Sex: 59/M Req #: [id number] Adm Physician: Ordered by: SÁNCHEZ CABRERA DO Report #: [id number] Location: ER Room/Bed: Procedure: [id number] DX/ CHEST 2 VIEWS Exam Date: 08/12/19 Exam Time: 1949 REPORT STATUS: Signed EXAMINATION: CHEST 2 VIEWS INDICATION: chest pain [id number]. COMPARISON: 11/21/2018. FINDINGS: PA and lateral views TUBES and LINES: None. LUNGS: Lungs are well inflated. There is no evidence of pneumonia or pulmonary edema. PLEURA: No pleural effusion or pneumo thorax. HEART AND MEDIASTINUM: The cardiomediastinal silhouette is unremar kable. BONES AND SOFT TISSUES: No acute osseous lesion. Soft tissues are unremarkable. UPPER ABDOMEN: No free air under the diaphragm. IMPRESSION: No acute thoracic abnormality. Signed by: Marco fuentes MD on 08/12/2019 9:00 PM Dictated By: MARCO TRIPATHI MD Electron ically Signed By: MARCO TRIPATHI MD on 08/12/192099 Transcribed By: KATEY on 08/12/19 2100 COPY TO: SÁNCHEZ CABRERA DO B-Type Natriuretic Pnrsltn0162-42-72 20:01:00* Test Item Value Reference Range Interpretation Comments B-Type Natriuretic Peptide (test code = 79781-7) 18.4 0-100 [facility] Natri[facility]tic Vjwocap2488-66-66 20:01:00* Test Item Value Reference Range Interpretation Comments B-Type Natriuretic Peptide (test code = 44019-0) 18.4 0-100 [facility] HospitalUrine [id number] 19:46:00* Test Item Value Reference Range Interpretation Comments Urine WBC (test code = 5821-4) NONE 0-5 [facility] QES5302-78-99 19:46:00* Test Item Value Reference Range Interpretation Comments Urine RBC (test code = 94614-3) NONE 0-5 [facility] Lpxyeadz0815-29-01 19:46:00* Test Item Value Reference Range Interpretation Comments Urine Bacteria (test code = 21785-0) RARE NONE [facility] Epithelial Ooqsr4149-74-79 19:46:00 * Test Item Value Reference Range Interpretation Comments Urine Epithelial Cells (test code = 97490-5) FEW NONE [facility] Amorphous Qpipkctx4079-98-48 19:46:00* Test Item Value Reference Range Interpretation Comments Urine Amorphous Sediment (test code = 8246-1) FEW FEW [facility] Hyaline Kjtok4034-82-31 19:46:00* Test Item Value Reference Range Interpretation Comments Urine Hyaline Casts (test code = 07537-9) 2-5 0-1 H [facility] LVK5326-01-63 19:46:00* Test Item Value Reference Range Interpretation Comments Urine WBC (test code = 5821-4) NONE 0-5 [facility] ZAA0496-08-21 19:46:00* Test Item Value Reference Range Interpretation Comments Urine RBC (test code = 53631-8) NONE 0-5 [facility] Ipzpzuht0573-43-18 19:46:00* Test Item Value Reference Range Interpretation Comments Urine Bacteria (test code = 22465-5) RARE NONE [facility] Epithelial Oazsv1830-03-85 19:46:00 * Test Item Value Reference Range Interpretation Comments Urine Epithelial Cells (test code = 55845-6) FEW NONE [facility] Amorphous Fxxhuwoi4502-19-38 19:46:00* Test Item Value Reference Range Interpretation Comments Urine Amorphous Sediment (test code = 8246-1) FEW FEW [facility] Hyaline Dfeny4638-33-36 19:46:00* Test Item Value Reference Range Interpretation Comments Urine Hyaline Casts (test code = 22177-6) 2-5 0-1 H [facility] HospitalProthrombin Begf2460-94-63 19:41:00* Test Item Value Reference Range Interpretation Comments Prothrombin Time (test code = 5902-2) 12.7 11.9-14.5 [facility] HospitalProthromb Time International Ratio 2019-08-12 19:41:00* Test Item Value Reference Range Interpretation Comments Prothromb Time International Ratio (test code = 6301-6) 0.90 Oral Anticoagulant Therapy INR Values:1. Low Intensity Therapy 1.5 - 2.02 . Moderate Intensity Therapy 2.0 - 3.03. High Intensity Therapy(1) 2.5 - 3. 54. High Intensity Therapy(2) 3.0 - 4.05. Panic Value INR > 5.0 [facility]Activated Partial Thromboplast Time 2019-08-12 19:41:00* Test Item Value Reference Range Interpretation Comments Activated Partial Thromboplast Time (test code = 40614-8) 26.5 23.8-35.5 [facility]Prothrombin Hkmx2472-45-22 19:41:00* Test Item Value Reference Range Interpretation Comments Prothrombin Time (test code = 5902-2) 12.7 11.9-14.5 [facility]Prothromb Time International Ratio 2019-08-12 19:41:00* Test Item Value Reference Range Interpretation Comments Prothromb Time International Ratio (test code = 6301-6) 0.90 Oral Anticoagulant Therapy INR Values:1. Low Intensity Therapy 1.5 - 2.02 . Moderate Intensity Therapy 2.0 - 3.03. High Intensity Therapy(1) 2.5 - 3. 54. High Intensity Therapy(2) 3.0 - 4.05. Panic Value INR > 5.0 [facility]Act[facility] Partial Thromboplast Time 2019-08-12 19:41:00* Test Item Value Reference Range Interpretation Comments Activated Partial Thromboplast Time (test code = 52931-5) 26.5 23.8-35.5 [facility] Tndqx8977-14-20 19:35:00* Test Item Value Reference Range Interpretation Comments Urine Color (test code = 5778-6) YELLOW YELLOW [facility] Eodqthl7206-78-57 19:35:00* Test Item Value Reference Range Interpretation Comments Urine Clarity (test code = 51401-1) SL CLOUDY CLEAR H [facility] Specific Rliksde1046-12-92 19:35:00 * Test Item Value Reference Range Interpretation Comments Urine Specific Raymond (test code = 5811-5) 1.030 1.010-1.02 5 H [facility] [id number] 19:35:00* Test Item Value Reference Range Interpretation Comments Urine pH (test code = 85670-3) 5.5 5-7 [facility] Leukocyte Qrngjcui7313-17-00 19:35:00* Test Item Value Reference Range Interpretation Comments Urine Leukocyte Esterase (test code = 5799-2) NEGATIVE NEGATIVE [facility] Phdazft3319-81-61 19:35:00* Test Item Value Reference Range Interpretation Comments Urine Nitrite (test code = 67740-1) NEGATIVE NEGATIVE [facility] Lavyzeg1406-96-36 19:35:00* Test Item Value Reference Range Interpretation Comments Urine Protein (test code = 5804-0) 2+ NEGATIVE H [facility] Glucose (UA)2019-08-12 19:35:00* Test Item Value Reference Range Interpretation Comments Urine Glucose (UA) (test code = 2349-9) 2+ NEGATIVE H [facility] Wxsguuz2263-76-13 19:35:00* Test Item Value Reference Range Interpretation Comments Urine Ketones (test code = 60624-6) NEGATIVE NEGATIVE [facility] Siwbpbucjesy4781-75-90 19:35:00* Test Item Value Reference Range Interpretation Comments Urine Urobilinogen (test code = 88033-8) 0.2 0.2-1 [facility] Olwlepulw2144-37-61 19:35:00* Test Item Value Reference Range Interpretation Comments Urine Bilirubin (test code = 1978-6) NEGATIVE NEGATIVE [facility] Yhzdn4086-19-01 19:35:00* Test Item Value Reference Range Interpretation Comments Urine Blood (test code = 76358-6) NEGATIVE NEGATIVE [facility] Ystfp4534-42-08 19:35:00* Test Item Value Reference Range Interpretation Comments Urine Color (test code = 5778-6) YELLOW YELLOW [facility] Tuoouji0184-90-32 19:35:00* Test Item Value Reference Range Interpretation Comments Urine Clarity (test code = 45196-2) SL CLOUDY CLEAR H [facility] Specific Ibmifgd7402-35-69 19:35:00 * Test Item Value Reference Range Interpretation Comments Urine Specific Raymond (test code = 5811-5) 1.030 1.010-1.02 5 H [facility] [id number] 19:35:00* Test Item Value Reference Range Interpretation Comments Urine pH (test code = 51101-8) 5.5 5-7 [facility] Leukocyte Fbekwpdh8790-09-41 19:35:00* Test Item Value Reference Range Interpretation Comments Urine Leukocyte Esterase (test code = 5799-2) NEGATIVE NEGATIVE [facility] Bkcldus1548-94-65 19:35:00* Test Item Value Reference Range Interpretation Comments Urine Nitrite (test code = 29879-0) NEGATIVE NEGATIVE [facility] Imibmml3669-83-93 19:35:00* Test Item Value Reference Range Interpretation Comments Urine Protein (test code = 5804-0) 2+ NEGATIVE H [facility] Glucose (UA)2019-08-12 19:35:00* Test Item Value Reference Range Interpretation Comments Urine Glucose (UA) (test code = 2349-9) 2+ NEGATIVE H [facility] Kgdpvbp4806-23-08 19:35:00* Test Item Value Reference Range Interpretation Comments Urine Ketones (test code = 76464-8) NEGATIVE NEGATIVE [facility] Msemnkselaiy8267-70-59 19:35:00* Test Item Value Reference Range Interpretation Comments Urine Urobilinogen (test code = 96064-2) 0.2 0.2-1 [facility] Looatxnvz6613-01-14 19:35:00* Test Item Value Reference Range Interpretation Comments Urine Bilirubin (test code = 1978-6) NEGATIVE NEGATIVE [facility] Aheva2660-93-80 19:35:00* Test Item Value Reference Range Interpretation Comments Urine Blood (test code = 03755-7) NEGATIVE NEGATIVE [facility] HospitalBASIC METABOLIC TIQBU8292-73-82 05:28:00 * Test Item Value Reference Range Interpretation Comments SODIUM (test code = NA) 143 mmol/L 136-145 N POTASSIUM (test code = K) 4.4 mmol/L 3.5-5.1 N CHLORIDE (test code = CL) 105 mmol/L 101-109 N CARBON DIOXIDE (test code = CO2) 27.4 mmol/L 21-32 N ANION GAP (test code = GAP) 15 mmol/L 10-20 N GLUCOSE (test code = GLU) 168 mg/dL 74-106 H BLOOD UREA NITROGEN (test code = BUN) 23 mg/dL 3-21 H GLOMERULAR FILTRATION RATE (test code = GFR) 46 mL/min >=60 Estimated GFR by using Modified MDRD formula.Chronic kidney disease is defined as either kidney damageor GFR <60 mL/min/1.73 m2 for >3 months. CREATININE (test code = CREAT) 1.54 mg/dL 0.55-1.3 H BUN/CREATININE RATIO (test code = BUN/CREA) 14.9 10-20 N CALCIUM (test code = CA) 8.9 mg/dL 8.4-10.2 N [id number]-R3520-65-12 05:28:00* Test Item Value Reference Range Interpretation Comments TROPONIN-I (test code = TROPI) <0.015 ng/mL 0.00-0.056 N - XR CHEST 1 [id number] 05:28:00 Name: TROY VALENTINE [facility] : 1960 Age/S:59 /M [address] [facility] Unit#:[id number] Loc: [place] [address] Phys: Pablo Santa MD Dis Date: PHONE #: [phone] Status: REG ER FAX #: [phone] Exam Date: 05/25/2019 Reason: CHEST PAIN EXAMS: CPT CODE: [id number] XR CHEST 1 V 61082 HISTORY: Chest pain. Location: C3 COMPARISON:03/05/2018 FINDINGS: There is cardiomegaly with mild vascular prominence. The lungs are clear of focal consolidation. No effusion, pneumothorax, or acute osseous abnormality. IMPRESSION: 1. Stable chest. Mild Cardiomegaly. No focal consolidation. at 0528 Reported and signed by: Steven Enriquez MD CC: Pablo Santa MD; Juwan Fernando Technologist: MALCOM GONZALEZ RT(R),RDMS,CT Trnscrpt Data: 05/25/2019 (05) t.SDR.RXC2 Orig Print D/T: S: 05/25/2019 (0549) PAGE 1 Signed Report URINALYSIS [id number] 05:27:00* Test Item Value Reference Range Interpretation Comments UA COLOR (test code = COLU) YELLOW YELLOW UA APPEARANCE (test code = APPU) CLEAR CLEAR UA GLUCOSE DIPSTICK (test code = DGLUU) norm mg/dL NEGATIVE UA BILIRUBIN DIPSTICK (test code = BILU) NEGATIVE mg/dL NEGATIVE UA KETONE DIPSTICK (test code = KETU) neg mg/dL NEGATIVE UA SPECIFIC GRAVITY (test code = SGU) 1.015 1.001-1.035 UA BLOOD DIPSTICK (test code = NANCY) neg Julian/uL NEGATIVE UA PH DIPSTICK (test code = JULIA) 5.0 5.0-8.0 UA PROTEIN DIPSTICK (test code = PROU) 30 (1+) mg/dL Neg-15 A UA UROBILINIOGEN DIPSTICK (test code = URO) norm mg/dL 0.0-0.2 UA NITRITE DIPSTICK (test code = AUGUSTINE) NEGATIVE NEGATIVE UA LEUKOCYTE ESTERASE DIPSTICK (test code = LEUU) neg uL NEGA TIVE UA WBC (test code = WBCU) NONE SEEN per HPF 0-5 UA RBC (test code = RBCU) 0-1 per HPF 0-5 UA EPITHELIAL CELLS (test code = EPIU) Rare (0-1/hpf) per HPF Few UA BACTERIA (test code = BACU) FEW per HPF NONE Urine Source? Clean CatchBASIC METABOLIC [id number] 05:21:00* Test Item Value Reference Range Interpretation Comments SODIUM (test code = NA) 143 mmol/L 136-145 N POTASSIUM (test code = K) 4.4 mmol/L 3.5-5.1 N CHLORIDE (test code = CL) 105 mmol/L 101-109 N CARBON DIOXIDE (test code = CO2) 27.4 mmol/L 21-32 N ANION GAP (test code = GAP) 15 mmol/L 10-20 N GLUCOSE (test code = GLU) 168 mg/dL 74-106 H BLOOD UREA NITROGEN (test code = BUN) 23 mg/dL 3-21 H GLOMERULAR FILTRATION RATE (test code = GFR) 46 mL/min >=60 Estimated GFR by using Modified MDRD formula.Chronic kidney disease is defined as either kidney damageor GFR <60 mL/min/1.73 m2 for >3 months. CREATININE (test code = CREAT) 1.54 mg/dL 0.55-1.3 H BUN/CREATININE RATIO (test code = BUN/CREA) 14.9 10-20 N CALCIUM (test code = CA) 8.9 mg/dL 8.4-10.2 N [id number] 05:21:00* Test Item Value Reference Range Interpretation Comments TROPONIN-I (test code = TROPI) ng/mL 0-0.045 CBC W/O [id number] 05:09:00* Test Item Value Reference Range Interpretation Comments WHITE BLOOD CELL (test code = WBC) 10.6 K/mm3 4.5-12.5 N RED BLOOD CELL (test code = RBC) 4.03 mill/mm3 4.0-5.8 N HEMOGLOBIN (test code = HGB) 11.7 gram/dL 13.0-17.5 L HEMATOCRIT (test code = HCT) 35.8 % 42.0-52.0 L MEAN CELL VOLUME (test code = MCV) 88.8 fL 80-98 N MEAN CELL HGB (test code = MCH) 29.0 picogram 27.0-33.0 N MEAN CELL HGB CONCETRATION (test code = MCHC) 32.7 gram/dL 33.0-36. 0 L RED CELL DISTRIBUTION WIDTH (test code = RDW) 13.5 % 11.6-16. 2 N RED CELL DISTRIBUTION WIDTH SD (test code = RDW-SD) 44.2 fL 37 .0-51.0 N PLATELET COUNT (test code = PLT) 164 K/mm3 150-450 N MEAN PLATELET VOLUME (test code = MPV) 11.0 fL 6.7-11.0 N MR, SPINE, THORACIC, WITHOUT [id number] 10:13:00FINAL REPORT MR, SPINE, THORACIC, WITHOUT CONTRAST, MR, SPINE, CERVICAL, WITHOUT CONTRAST INDICATION: HYPERREFLEXIA,GALLAGHER SIGN PRESENT,CHRONIC BILATERAL THORCIC BACK PAIN TECHNIQUE: Multiplanar, multisequence unenhanced MR images of the cervical and thoracic spine were obtained. COMPARISON: None FINDINGS:Cervical Spine:Axial images are severely motion degraded. Vertebral bodies demonstrate preserved height. There is straightening of the normal cerv ical lordosis. Degenerative endplate and disc degenerative changes are most holli re at C5-6 and C6-7. There is a mild degree of facet arthropathy noted throughou t the cervical spine. No aggressive appearing lesions are present. Cervical cord demonstrates grossly normal caliber. There is suggestion of multifocal T2 hyper intensities throughout the cervical cord, but are inconsistent when comparing ax ial and sagittal sequences. Signal characteristics are most prominent ventrally/ centrally at C3-4 with questionable changes at C5-6 and C6-7. Findings by level: C2/C3: Broad disc bulge without canal compromise. Mild bilateral foraminal steno sis. C3/C4: Central disc protrusion. Mild canal narrowing. Mild foraminal stenos is. C4/C5: Moderate canal narrowing and moderate to severe bilateral foraminal s tenosis. C5/C6: Discogenic changes creating moderate to severe canal narrowing. Moderate to severe bilateral foraminal stenosis C6/C7: Moderate canal narrowing . Moderate to severe bilateral foraminal stenosis. C7/T1: No canal or foraminal narrowing. Paraspinal soft tissue structures are unremarkable. Thoracic spine:Th e vertebral bodies have normal height, alignment, and signal intensity. The inte rvertebral discs have normal height and signal intensity. The spinal cord is nor mal in caliber and signal intensity. There is no significant foraminal or spinal canal stenosis. Review paraspinal soft tissue structures reveals cystic change in the right kidney,. Mediastinal structures are incompletely evaluated and degr aded by motion. IMPRESSION: Limited by body habitus and significant motion art ifact in the cervical spine sequences. Advanced degenerative changes are greates t at C5-6 and C6-7, where there is moderate to severe canal narrowing and severe bilateral foraminal stenosis. Suggestion of cord signal abnormality in these re gions, poorly characterized due to four mentioned limitations. No acute clinical findings in the thoracic spine. Signed: JR Garcia Robert MDReport Verif ied Date/Time: 02/12/2019 10:13:07 Reading Location: [address] Neuro Reading Room , SPINE, CERVICAL, WITHOUT [id number] 10:13:00FINAL REPORT MR, SPINE, THORACIC, WITHOUT CONTRAST, MR, SPINE, CERVICAL, WITHOUT CONTRAST INDICATION: HYPERREFLEXIA,GALLAGHER SIGN PRESENT,CHRONIC BILATERAL THORCIC BACK PAIN TECHNIQUE: Multiplanar, multisequence unenhanced MR images of the cervical and thoracic spine were obtained. COMPARISON: None FINDINGS:Cervical Spine:Axial images are severely motion degraded. Vertebral bodies demonstrate preserved height. There is straightening of the normal cerv ical lordosis. Degenerative endplate and disc degenerative changes are most holli re at C5-6 and C6-7. There is a mild degree of facet arthropathy noted throughou t the cervical spine. No aggressive appearing lesions are present. Cervical cord demonstrates grossly normal caliber. There is suggestion of multifocal T2 hyper intensities throughout the cervical cord, but are inconsistent when comparing ax ial and sagittal sequences. Signal characteristics are most prominent ventrally/ centrally at C3-4 with questionable changes at C5-6 and C6-7. Findings by level: C2/C3: Broad disc bulge without canal compromise. Mild bilateral foraminal steno sis. C3/C4: Central disc protrusion. Mild canal narrowing. Mild foraminal stenos is. C4/C5: Moderate canal narrowing and moderate to severe bilateral foraminal s tenosis. C5/C6: Discogenic changes creating moderate to severe canal narrowing. Moderate to severe bilateral foraminal stenosis C6/C7: Moderate canal narrowing . Moderate to severe bilateral foraminal stenosis. C7/T1: No canal or foraminal narrowing. Paraspinal soft tissue structures are unremarkable. Thoracic spine:Th e vertebral bodies have normal height, alignment, and signal intensity. The inte rvertebral discs have normal height and signal intensity. The spinal cord is nor mal in caliber and signal intensity. There is no significant foraminal or spinal canal stenosis. Review paraspinal soft tissue structures reveals cystic change in the right kidney,. Mediastinal structures are incompletely evaluated and degr aded by motion. IMPRESSION: Limited by body habitus and significant motion art ifact in the cervical spine sequences. Advanced degenerative changes are greates t at C5-6 and C6-7, where there is moderate to severe canal narrowing and severe bilateral foraminal stenosis. Suggestion of cord signal abnormality in these re gions, poorly characterized due to four mentioned limitations. No acute clinical findings in the thoracic spine. Signed: JR Garcia Robert MDReport Verif ied Date/Time: 02/12/2019 10:13:07 Reading Location: [address] Neuro Reading Room spine cervical without IV [id number] 10:13:00Interface, External Ris In - 02/12/2019 10:15 AM CDTFINAL REPORT MR, SPINE, THORACIC, WITHOUT CONTRAST, MR, SPINE, CERVICAL, WITHOUT CONTRAST INDICATION: HYPERREFLEXIA,GALLAGHER SIGN PRESENT,CHRONIC BILATERAL THORCIC BACK PAIN TECHNIQUE: Multiplanar, multisequence unenhanced MR images of the cervical and thoracic spine were obtained. COMPARISON: None FINDINGS:Cervical Spine:Axial images are severely motion degraded. Vertebral bodies demonstrate preserved height. There is straightening of the normal cervical lordosis. Degenerative endplate and disc degenerative changes are most severe at C5-6 and C6-7. There i s a mild degree of facet arthropathy noted throughout the cervical spine. No agg ressive appearing lesions are present. Cervical cord demonstrates grossly normal caliber. There is suggestion of multifocal T2 hyperintensities throughout the c ervical cord, but are inconsistent when comparing axial and sagittal sequences. Signal characteristics are most prominent ventrally/centrally at C3-4 with quest ionable changes at C5-6 and C6-7. Findings by level:C2/C3: Broad disc bulge with out canal compromise. Mild bilateral foraminal stenosis. C3/C4: Central disc pro trusion. Mild canal narrowing. Mild foraminal stenosis. C4/C5: Moderate canal na rrowing and moderate to severe bilateral foraminal stenosis. C5/C6: Discogenic c hanges creating moderate to severe canal narrowing. Moderate to severe bilateral foraminal stenosis C6/C7: Moderate canal narrowing. Moderate to severe bilater al foraminal stenosis. C7/T1: No canal or foraminal narrowing. Paraspinal soft t issue structures are unremarkable. Thoracic spine:The vertebral bodies have norm al height, alignment, and signal intensity. The intervertebral discs have normal height and signal intensity. The spinal cord is normal in caliber and signal in tensity. There is no significant foraminal or spinal canal stenosis. Review para spinal soft tissue structures reveals cystic change in the right kidney,. Medias tinal structures are incompletely evaluated and degraded by motion. IMPRESSION: Limited by body habitus and significant motion artifact in the cervical spine sequences. Advanced degenerative changes are greatest at C5-6 and C6-7, where th ere is moderate to severe canal narrowing and severe bilateral foraminal stenosi s. Suggestion of cord signal abnormality in these regions, poorly characterized due to four mentioned limitations. No acute clinical findings in the thoracic sp ine. Signed: JR Garcia Robert MDReport Verified Date/Time: 02/12/2019 1 0:13:07 Reading Location: [address] Neuro Reading Room Electronically sign ed by: STEVEN GARCIA on 02/12/2019 10:13 AM [facility] [id number] 10:13:00Interface, External Ris In - 02/12/2019 10:15 AM CDTFINAL REPORT MR, SPINE, THORACIC, WITHOUT CONTRAST, MR, SPINE, CERVICAL, WITHOUT CONTRAST INDICATION: HYPERREFLEXIA,GALLAGHER SIGN PRESENT,CHRONIC BILATERAL THORCIC BACK PAIN TECHNIQUE: Multiplanar, multisequence unenhanced MR images of the cerv ical and thoracic spine were obtained. COMPARISON: None FINDINGS:Cervical Spine :Axial images are severely motion degraded. Vertebral bodies demonstrate preserv ed height. There is straightening of the normal cervical lordosis. Degenerative endplate and disc degenerative changes are most severe at C5-6 and C6-7. There i s a mild degree of facet arthropathy noted throughout the cervical spine. No agg ressive appearing lesions are present. Cervical cord demonstrates grossly normal caliber. There is suggestion of multifocal T2 hyperintensities throughout the c ervical cord, but are inconsistent when comparing axial and sagittal sequences. Signal characteristics are most prominent ventrally/centrally at C3-4 with quest ionable changes at C5-6 and C6-7. Findings by level:C2/C3: Broad disc bulge with out canal compromise. Mild bilateral foraminal stenosis. C3/C4: Central disc pro trusion. Mild canal narrowing. Mild foraminal stenosis. C4/C5: Moderate canal na rrowing and moderate to severe bilateral foraminal stenosis. C5/C6: Discogenic c hanges creating moderate to severe canal narrowing. Moderate to severe bilateral foraminal stenosis C6/C7: Moderate canal narrowing. Moderate to severe bilater al foraminal stenosis. C7/T1: No canal or foraminal narrowing. Paraspinal soft t issue structures are unremarkable. Thoracic spine:The vertebral bodies have norm al height, alignment, and signal intensity. The intervertebral discs have normal height and signal intensity. The spinal cord is normal in caliber and signal in tensity. There is no significant foraminal or spinal canal stenosis. Review para spinal soft tissue structures reveals cystic change in the right kidney,. Medias tinal structures are incompletely evaluated and degraded by motion. IMPRESSION: Limited by body habitus and significant motion artifact in the cervical spine sequences. Advanced degenerative changes are greatest at C5-6 and C6-7, where th ere is moderate to severe canal narrowing and severe bilateral foraminal stenosi s. Suggestion of cord signal abnormality in these regions, poorly characterized due to four mentioned limitations. No acute clinical findings in the thoracic sp ine. Signed: JR Garcia Robert MDReport Verified Date/Time: 02/12/2019 1 0:13:07 Reading Location: [facility] Neuro Reading Room Electronically sign ed by: STEVEN GARCIA on 02/12/2019 10:13 AM [facility] [id number] 09:58:00* Test Item Value Reference Range Interpretation Comments Amylase Level (test code = 1798-8) 40 25-125 [facility] 09:58:00* Test Item Value Reference Range Interpretation Comments Lipase (test code = 3040-3) 45 78 [facility] [id number] 09:58:00* Test Item Value Reference Range Interpretation Comments Amylase Level (test code = 1798-8) 40 25-125 [facility]2019-07-[facility] 09:58:00* Test Item Value Reference Range Interpretation Comments Lipase (test code = 3040-3) 45 78 [facility] [id number] 09:58:00* Test Item Value Reference Range Interpretation Comments Amylase Level (test code = 1798-8) 40 25-125 [facility]2019-07-[facility] 09:58:00* Test Item Value Reference Range Interpretation Comments Lipase (test code = 3040-3) 45 [facility] [id number] 09:22:00* Test Item Value Reference Range Interpretation Comments Urine WBC (test code = 5821-4) 0-5 0-5 [facility] [id number] 09:22:00* Test Item Value Reference Range Interpretation Comments Urine RBC (test code = 76313-4) NONE 0-5 [facility] [id number] 09:22:00* Test Item Value Reference Range Interpretation Comments Urine Bacteria (test code = 60370-5) MANY NONE H [facility] Epithelial [id number] 09:22:00 * Test Item Value Reference Range Interpretation Comments Urine Epithelial Cells (test code = 59506-7) RARE NONE [facility] [id number] 09:00:00* Test Item Value Reference Range Interpretation Comments Urine Color (test code = 5778-6) YELLOW YELLOW [facility] Lmkankf2854-80-08 09:00:00* Test Item Value Reference Range Interpretation Comments Urine Clarity (test code = 84456-5) SL CLOUDY CLEAR H [facility] Specific Dtywxos7820-22-05 09:00:00 * Test Item Value Reference Range Interpretation Comments Urine Specific Raymond (test code = 5811-5) 1.020 1.010-1.02 5 [facility] [id number] 09:00:00* Test Item Value Reference Range Interpretation Comments Urine pH (test code = 07262-4) 5.5 5-7 [facility] Leukocyte [id number] 09:00:00* Test Item Value Reference Range Interpretation Comments Urine Leukocyte Esterase (test code = 18322-5) NEGATIVE NEGATIV E [facility] [id number] 09:00:00* Test Item Value Reference Range Interpretation Comments Urine Nitrite (test code = 43035-7) NEGATIVE NEGATIVE [facility] Tpohwwq4553-26-54 09:00:00* Test Item Value Reference Range Interpretation Comments Urine Protein (test code = 83776-3) 1+ NEGATIVE H [facility] Glucose (UA)2018-11-21 09:00:00* Test Item Value Reference Range Interpretation Comments Urine Glucose (UA) (test code = 81280-1) NEGATIVE NEGATIVE [facility] Nqixcol8612-68-38 09:00:00* Test Item Value Reference Range Interpretation Comments Urine Ketones (test code = 61818-2) NEGATIVE NEGATIVE [facility] Ftptavzxqgjm5816-93-04 09:00:00* Test Item Value Reference Range Interpretation Comments Urine Urobilinogen (test code = 17332-0) 0.2 0.2-1 [facility] Lacfpxwln1862-54-25 09:00:00* Test Item Value Reference Range Interpretation Comments Urine Bilirubin (test code = 1977-8) NEGATIVE NEGATIVE [facility] Prdnz4903-57-27 09:00:00* Test Item Value Reference Range Interpretation Comments Urine Blood (test code = 72807-9) NEGATIVE NEGATIVE [facility]2018-11-21 08:01:00 [facility] [address] [place] [address] Patient Name: TROY VALENTINE MR #: [id number] : 1960 Age/Sex: 58/M Req #: [id number] Adm Physician: Ordered by: SE ARIZA MD Report #: [id number] Location: ER Room/Bed: Procedure: [id number] DX/C HEST SINGLE (PORTABLE) Exam Date: 11/21/18 Exam Time : 726 REPORT STATUS: Signed Exa mination: Single AP view of the chest. COMPARISON: 09/30/2018 INDICATIO N: Chest pain DISCUSSION: The lungs are well-inflated. No focal a irspace consolidation, pleural effusion, or pneumothorax. Cardiomediastinal co ntour and pulmonary vasculature are within normal limits for portable, AP tech nique. No acute osseous abnormality. IMPRESSION: 1. No acute cardio pulmonary abnormalities. Signed by: Dr. Hernandez Meyer M.D. on 11/21/2018 8: 07 AM Dictated By: HERNANDEZ MEYER MD 6 Transcribed By: KATEY on 11/21/18806 COPY TO: SE ARIZA MD B-Type Natriuretic Cfwxuuc2864-40-20 07:38:00* Test Item Value Reference Range Interpretation Comments B-Type Natriuretic Peptide (test code = 10336-0) 39.5 0-100 [facility] Kinase [id number] 07:32:00* Test Item Value Reference Range Interpretation Comments Creatine Kinase MB (test code = 63581-5) 1.60 0-5.0 [facility]Troponin [id number] 07:32:00* Test Item Value Reference Range Interpretation Comments Troponin I (test code = OKB8708) < 0.001 0-0.300 [facility] Vsmxe5780-60-94 07:23:00* Test Item Value Reference Range Interpretation Comments Sodium Level (test code = 2951-2) 138 136-145 [facility]Potassium Whvdm7093-56-52 07:23:00* Test Item Value Reference Range Interpretation Comments Potassium Level (test code = 2823-3) 3.7 3.5-5.1 [facility]Chloride Ieogf2825-83-29 07:23:00* Test Item Value Reference Range Interpretation Comments Chloride Level (test code = 2075-0) 102 98-107 [facility]Carbon Dioxide [id number] 07:23:00* Test Item Value Reference Range Interpretation Comments Carbon Dioxide Level (test code = 2028-9) 25 22-29 [facility] HospitalAnion Afr1715-48-89 07:23:00* Test Item Value Reference Range Interpretation Comments Anion Gap (test code = 23345-7) 14.7 8-16 [facility]Blood Urea Wjhizfar9397-77-03 07:23:00* Test Item Value Reference Range Interpretation Comments Blood Urea Nitrogen (test code = 3094-0) 19 7-26 [facility]Creatinine2019-07-11 07:23:00* Test Item Value Reference Range Interpretation Comments Creatinine (test code = 2160-0) 1.78 0.72-1.25 H [facility] HospitalBUN/Creatinine Hhyix7869-33-56 07:23:00* Test Item Value Reference Range Interpretation Comments BUN/Creatinine Ratio (test code = 3097-3) 11 6-25 [facility] HospitalEstimat Glomerular Filtration Rate 2018-11-21 07:23:00* Test Item Value Reference Range Interpretation Comments Estimat Glomerular Filtration Rate (test code = 821456940) 39 >60 L Ranges were taken from the National Kidney Disease Education Program and the [facility] literature.Reference ranges:60 or greater: Kunczz08-36 ( for 3 consecutive months): Chronic kidney disease 15 or less: Kidney failureTyler [facility] HospitalGlucose Tdftw5414-69-52 07:23:00* Test Item Value Reference Range Interpretation Comments Glucose Level (test code = XXQ5290) 132 74-118 H [facility] HospitalCalcium Fkarw4419-37-77 07:23:00* Test Item Value Reference Range Interpretation Comments Calcium Level (test code = 27091-9) 9.9 8.4-10.2 [facility] HospitalTotal Yvovrtuno1376-60-66 07:23:00* Test Item Value Reference Range Interpretation Comments Total Bilirubin (test code = 1975-2) 0.6 0.2-1.2 [facility] HospitalAspartate Amino Transf (AST/SGOT) 2018-11-21 07:23:00* Test Item Value Reference Range Interpretation Comments Aspartate Amino Transf (AST/SGOT) (test code = Aspartate Amino Transf (AST/SGOT)) 23 5-34 [facility] HospitalAlanine Aminotransferase (ALT/SGPT) 2018-11-21 07:23:00* Test Item Value Reference Range Interpretation Comments Alanine Aminotransferase (ALT/SGPT) (test code = 1742-6) 30 0-55 [facility] HospitalTotal Ixoglqy0404-75-67 07:23:00* Test Item Value Reference Range Interpretation Comments Total Protein (test code = 2885-2) 6.6 6.5-8.1 [facility] HospitalAlbumin2019-07-11 07:23:00* Test Item Value Reference Range Interpretation Comments Albumin (test code = 1751-7) 3.7 3.5-5.0 [facility] HospitalGlobulin2019-07-11 07:23:00* Test Item Value Reference Range Interpretation Comments Globulin (test code = 72709-2) 2.9 2.3-3.5 [facility] HospitalAlbumin/Globulin Hwrwl5406-80-18 07:23:00 * Test Item Value Reference Range Interpretation Comments Albumin/Globulin Ratio (test code = 1759-0) 1.3 0.8-2.0 [facility] HospitalAlkaline Iduzuzoxruf2701-98-41 07:23:00* Test Item Value Reference Range Interpretation Comments Alkaline Phosphatase (test code = 6768-6) 98 40-150 [facility]Creatine Uvebzt8740-41-98 07:23:00* Test Item Value Reference Range Interpretation Comments Creatine Kinase (test code = 2157-6) 108 30-200 [facility] HospitalWhite Blood Dysvd7390-80-90 07:17:00* Test Item Value Reference Range Interpretation Comments White Blood Count (test code = 6690-2) 8.61 4.8-10.8 [facility] HospitalRed Blood Bvjlf7382-58-70 07:17:00* Test Item Value Reference Range Interpretation Comments Red Blood Count (test code = 789-8) 4.28 4.3-5.7 L [facility] HospitalHemoglobin2019-07-11 07:17:00* Test Item Value Reference Range Interpretation Comments Hemoglobin (test code = 00465-0) 12.6 14.0-18.0 L [facility] HospitalHematocrit2019-07-11 07:17:00* Test Item Value Reference Range Interpretation Comments Hematocrit (test code = 4544-3) 38.5 38.2-49.6 [facility] HospitalMean Corpuscular Bbvuve1226-76-18 07:17:00* Test Item Value Reference Range Interpretation Comments Mean Corpuscular Volume (test code = 787-2) 90.0 81-99 [facility] HospitalMean Corpuscular Pwrkvowdqb9146-77-26 07:17:00* Test Item Value Reference Range Interpretation Comments Mean Corpuscular Hemoglobin (test code = 785-6) 29.4 28-32 [facility] HospitalMean Corpuscular Hemoglobin Concent 2018-11-21 07:17:00* Test Item Value Reference Range Interpretation Comments Mean Corpuscular Hemoglobin Concent (test code = 786-4) 32.7 31-35 [facility] HospitalRed Cell Distribution Scpoh4292-08-45 07:17:00* Test Item Value Reference Range Interpretation Comments Red Cell Distribution Width (test code = 77666-8) 13.9 11.7 -14.4 [facility] HospitalPlatelet Bnbdh8462-09-18 07:17:00* Test Item Value Reference Range Interpretation Comments Platelet Count (test code = 777-3) 206 140-360 [facility] HospitalNeutrophils (%) (Auto)2018-11-21 07:17:00 * Test Item Value Reference Range Interpretation Comments Neutrophils (%) (Auto) (test code = 51404-5) 66.9 38.7-80.0 [facility] HospitalLymphocytes (%) (Auto)2018-11-21 07:17:00 * Test Item Value Reference Range Interpretation Comments Lymphocytes (%) (Auto) (test code = 736-9) 24.6 18.0-39.1 [facility] HospitalMonocytes (%) (Auto)2018-11-21 07:17:00* Test Item Value Reference Range Interpretation Comments Monocytes (%) (Auto) (test code = 5905-5) 6.5 4.4-11.3 [facility] HospitalEosinophils (%) (Auto)2018-11-21 07:17:00 * Test Item Value Reference Range Interpretation Comments Eosinophils (%) (Auto) (test code = 713-8) 1.5 0.0-6.0 [facility] HospitalBasophils (%) (Auto)2018-11-21 07:17:00* Test Item Value Reference Range Interpretation Comments Basophils (%) (Auto) (test code = 706-2) 0.3 0.0-1.0 [facility] HospitalIM GRANULOCYTES %2018-11-21 07:17:00* Test Item Value Reference Range Interpretation Comments IM GRANULOCYTES % (test code = IM GRANULOCYTES %) 0.2 0.0- 1.0 [facility] HospitalNeutrophils # (Auto)2018-11-21 07:17:00* Test Item Value Reference Range Interpretation Comments Neutrophils # (Auto) (test code = 751-8) 5.8 2.1-6.9 [facility] HospitalLymphocytes # (Auto)2018-11-21 07:17:00* Test Item Value Reference Range Interpretation Comments Lymphocytes # (Auto) (test code = 06009-8) 2.1 1.0-3.2 [facility] HospitalMonocytes # (Auto)2018-11-21 07:17:00* Test Item Value Reference Range Interpretation Comments Monocytes # (Auto) (test code = 742-7) 0.6 0.2-0.8 [facility]Eosinophils # (Auto)2018-11-21 07:17:00* Test Item Value Reference Range Interpretation Comments Eosinophils # (Auto) (test code = 711-2) 0.1 0.0-0.4 [facility]Basophils # (Auto)2018-11-21 07:17:00* Test Item Value Reference Range Interpretation Comments Basophils # (Auto) (test code = 704-7) 0.0 0.0-0.1 [facility] HospitalAbsolute Immature Granulocyte (auto 2018-11-21 07:17:00* Test Item Value Reference Range Interpretation Comments Absolute Immature Granulocyte (auto (todd t code = Absolute Immature Granulocyte (auto) 0.02 0-0.1 [facility] HospitalProthrombin Dsyx7599-26-58 07:14:00* Test Item Value Reference Range Interpretation Comments Prothrombin Time (test code = 5902-2) 13.0 11.9-14.5 [facility] HospitalProthromb Time International Ratio 2018-11-21 07:14:00* Test Item Value Reference Range Interpretation Comments Prothromb Time International Ratio (test code = 6301-6) 0.93 Oral Anticoagulant Therapy INR Values:1. Low Intensity Therapy 1.5 - 2.02 . Moderate Intensity Therapy 2.0 - 3.03. High Intensity Therapy(1) 2.5 - 3. 54. High Intensity Therapy(2) 3.0 - 4.05. Panic Value INR > 5.0 [facility] HospitalActivated Partial Thromboplast Time 2018-11-21 07:14:00* Test Item Value Reference Range Interpretation Comments Activated Partial Thromboplast Time (test code = 90319-4) 26.5 23.8-35.[address] Ifddcgz8193-66-51 00:02:00* Test Item Value Reference Range Interpretation Comments Bedside Glucose (test code = 31848-2) 147 70-120 H Meter ID: [id number] [facility]ufkinUS RENAL RETROPERITONEAL AOBO3909-65-53 09:48:00 [facility] [address] [place] [address] Patient Name: TROY VALENTINE MR #: [id number] : 1960 Age/Sex: 58/M Req #: [id number] Adm Physician: ELLA JOHNSON MD Ordered by: ELLA JOHNSON MD Report #: [id number] Location: [facility] Room/Bed: [place] [address] Procedure: [id number] US/US RENAL RETROPERITONEAL COMP Exam Date: 10/01/18 Exam Time: 0830 REPORT STATUS: Signed Renal ultrasound. History: Elevated creatinine Discussion: Transv erse and longitudinal images of the kidneys were obtained demonstrating normal echogenicities. Left kidney is situated within the pelvis. There is no eviden ce of hydronephrosis, mass or renal calculus. The right kidney measures 13.3 x 5.3 x 5.6 cm and the left kidney measures 8.6 x 5.2 x 5.4 cm. Maximal cortical thickness on the right side is 2.0 cm and on the left side 1.5 cm. Two dominant cysts are seen on the right side measuring maximal dimension of 1.8 cm in the upper pole and 2.8 cm in the upper pole-mid pole region. There are m ultiple cysts noted on the left side with the largest in the lower pole measur ing 2.7 cm. The urinary bladder is unremarkable with an estimated prevoid volume of 111.81 cc. There is no evidence of free fluid. IMPRESSION: 1. Bilateral renal cysts with out evidence of hydronephrosis. 2. Left pel ness kidney which is small. Signed by: Dr. Oneil Schwartz DO on 10/01/2018 9: 54 AM Dictated By: ONEIL SCHWARTZ DO 3 Transcribed By: KATEY on 10/01/18953 COPY TO: ELLA JOHNSON MD Bedside Yfqqgle0793-02-17 08:38:00* Test Item Value Reference Range Interpretation Comments Bedside Glucose (test code = 90143-5) 169 70-120 H Meter ID: [id number] [facility] HospitalCreatine Kinase MB 2018-10-01 06:43:00* Test Item Value Reference Range Interpretation Comments Creatine Kinase MB (test code = 02864-0) 1.70 0-5.0 [facility] HospitalTroponin [id number] 06:43:00* Test Item Value Reference Range Interpretation Comments Troponin I (test code = FAO0230) 0.007 0-0.300 [facility] HospitalCreatine Wwgfnt5026-03-70 06:37:00* Test Item Value Reference Range Interpretation Comments Creatine Kinase (test code = 2157-6) 70 30-200 [facility] HospitalTriglycerides Unqkg2751-50-17 06:02:00* Test Item Value Reference Range Interpretation Comments Triglycerides Level (test code = 2571-8) 210 0-149 H [facility] HospitalCholesterol Dprjz5948-30-95 06:02:00* Test Item Value Reference Range Interpretation Comments Cholesterol Level (test code = 2093-3) 124 0-199 Less than 200 mg/dL Low Gffr659 - 239 mg/dL Borderline Tgpr568 m g/dl and greater High Risk [facility] HospitalLDL Bdakagllmcl1210-99-55 06:02:00* Test Item Value Reference Range Interpretation Comments LDL Cholesterol (test code = 2089-1) 57 60-130 L [facility] HospitalHDL Ttuejzbutbz7922-41-01 06:02:00* Test Item Value Reference Range Interpretation Comments HDL Cholesterol (test code = 2085-9) 25 40-60 L [facility] HospitalCholesterol/HDL Eywpq1683-71-07 06:02:00 * Test Item Value Reference Range Interpretation Comments Cholesterol/HDL Ratio (test code = 9830-1) 5.0 3.9-4.7 H [facility] HospitalTriglycerides Fcixz3517-41-18 06:02:00* Test Item Value Reference Range Interpretation Comments Triglycerides Level (test code = 2571-8) 210 0-149 H [facility] HospitalCholesterol Tnzxt7857-91-42 06:02:00* Test Item Value Reference Range Interpretation Comments Cholesterol Level (test code = 2093-3) 124 0-199 Less than 200 mg/dL Low Jnox558 - 239 mg/dL Borderline Ivow813 m g/dl and greater High Risk [facility] HospitalLDL Yeqrqsahkhe4737-87-05 06:02:00* Test Item Value Reference Range Interpretation Comments LDL Cholesterol (test code = 2089-1) 57 60-130 L [facility] HospitalHDL Ilodcqxpkce8143-14-54 06:02:00* Test Item Value Reference Range Interpretation Comments HDL Cholesterol (test code = 2085-9) 25 40-60 L [facility] HospitalCholesterol/HDL Wzfxs6929-17-24 06:02:00 * Test Item Value Reference Range Interpretation Comments Cholesterol/HDL Ratio (test code = 9830-1) 5.0 3.9-4.7 [facility] Ivocu3101-52-58 05:45:00* Test Item Value Reference Range Interpretation Comments Sodium Level (test code = 2951-2) 139 136-145 [facility] HospitalPotassium Cdvhf1117-41-61 05:45:00* Test Item Value Reference Range Interpretation Comments Potassium Level (test code = 2823-3) 4.3 3.5-5.1 [facility] HospitalChloride Mlyjf4537-09-07 05:45:00* Test Item Value Reference Range Interpretation Comments Chloride Level (test code = 2075-0) 107 98-107 [facility] HospitalCarbon Dioxide Igpkc9633-08-56 05:45:00* Test Item Value Reference Range Interpretation Comments Carbon Dioxide Level (test code = 2028-9) 26 22-29 [facility] HospitalAnion Yya2622-09-11 05:45:00* Test Item Value Reference Range Interpretation Comments Anion Gap (test code = 04347-9) 10.3 8-16 [facility] HospitalBlood Urea Bgdqlnka3590-90-12 05:45:00* Test Item Value Reference Range Interpretation Comments Blood Urea Nitrogen (test code = 3094-0) 22 7-26 [facility] HospitalCreatinine2019-05-21 05:45:00* Test Item Value Reference Range Interpretation Comments Creatinine (test code = 2160-0) 1.69 0.72-1.25 H [facility] HospitalBUN/Creatinine Kxvll2014-53-49 05:45:00* Test Item Value Reference Range Interpretation Comments BUN/Creatinine Ratio (test code = 3097-3) 13 6- [facility] HospitalEstimat Glomerular Filtration Rate 2018-10-01 05:45:00* Test Item Value Reference Range Interpretation Comments Estimat Glomerular Filtration Rate (test code = 746632792) 42 >60 L Ranges were taken from the National Kidney Disease Education Program and the [facility] literature.Reference ranges:60 or greater: Onmfsr29-19 ( for 3 consecutive months): Chronic kidney disease 15 or less: Kidney failureTyler County HospitalGlucose Rjuqu2340-06-08 05:45:00* Test Item Value Reference Range Interpretation Comments Glucose Level (test code = EMD1504) 103 74-118 [facility] HospitalCalcium Jtsup8286-87-13 05:45:00* Test Item Value Reference Range Interpretation Comments Calcium Level (test code = 00143-7) 8.7 8.4-10.2 [facility] HospitalHemoglobin A1c Lnygcxj7920-84-97 05:45:00 * Test Item Value Reference Range Interpretation Comments Hemoglobin A1c Percent (test code = Hemoglobin A1c Percent) 6.9 4.0-7.0 [facility] HospitalTotal Xnnwowryg2922-60-26 05:45:00* Test Item Value Reference Range Interpretation Comments Total Bilirubin (test code = 1975-2) 0.4 0.2-1.2 [facility] HospitalAspartate Amino Transf (AST/SGOT) 2018-10-01 05:45:00* Test Item Value Reference Range Interpretation Comments Aspartate Amino Transf (AST/SGOT) (test code = Aspartate Amino Transf (AST/SGOT)) 26 5-34 [facility] HospitalAlanine Aminotransferase (ALT/SGPT) 2018-10-01 05:45:00* Test Item Value Reference Range Interpretation Comments Alanine Aminotransferase (ALT/SGPT) (test code = 1742-6) 42 0-55 [facility] HospitalTotal Emugimm2862-31-46 05:45:00* Test Item Value Reference Range Interpretation Comments Total Protein (test code = 2885-2) 5.6 6.5-8.1 L [facility] HospitalAlbumin2019-05-21 05:45:00* Test Item Value Reference Range Interpretation Comments Albumin (test code = 1751-7) 3.1 3.5-5.0 L [facility] HospitalGlobulin2019-05-21 05:45:00* Test Item Value Reference Range Interpretation Comments Globulin (test code = 34134-7) 2.5 2.3-3.5 [facility] HospitalAlbumin/Globulin Njxvl0479-62-20 05:45:00 * Test Item Value Reference Range Interpretation Comments Albumin/Globulin Ratio (test code = 1759-0) 1.2 0.8-2.0 [facility] HospitalAlkaline Ixljwclippg5624-69-57 05:45:00* Test Item Value Reference Range Interpretation Comments Alkaline Phosphatase (test code = 6768-6) 71 40-150 [facility] HospitalHemoglobin A1c Rkceabs5152-73-95 05:45:00 * Test Item Value Reference Range Interpretation Comments Hemoglobin A1c Percent (test code = Hemoglobin A1c Percent) 6.9 4.0-7.0 [facility] HospitalWhite Blood Fnvdk4082-47-43 05:04:00* Test Item Value Reference Range Interpretation Comments White Blood Count (test code = 6690-2) 6.42 4.8-10.8 [facility] HospitalRed Blood Awfco2067-75-66 05:04:00* Test Item Value Reference Range Interpretation Comments Red Blood Count (test code = 789-8) 4.05 4.3-5.7 L [facility] HospitalHemoglobin2019-05-21 05:04:00* Test Item Value Reference Range Interpretation Comments Hemoglobin (test code = 04347-0) 11.7 14.0-18.0 L [facility] HospitalHematocrit2019-05-21 05:04:00* Test Item Value Reference Range Interpretation Comments Hematocrit (test code = 4544-3) 37.3 38.2-49.6 L [facility] HospitalMean Corpuscular Knxitz0521-07-28 05:04:00* Test Item Value Reference Range Interpretation Comments Mean Corpuscular Volume (test code = 787-2) 92.1 81-99 [facility] HospitalMean Corpuscular Jloevvizac3711-30-61 05:04:00* Test Item Value Reference Range Interpretation Comments Mean Corpuscular Hemoglobin (test code = 785-6) 28.9 28-32 [facility] Hemoglobin Concent 2018-10-01 05:04:00* Test Item Value Reference Range Interpretation Comments Mean Corpuscular Hemoglobin Concent (test code = 786-4) 31.4 31-35 [facility] HospitalRed Cell Distribution Jsbfz0260-66-06 05:04:00* Test Item Value Reference Range Interpretation Comments Red Cell Distribution Width (test code = 45232-2) 14.7 11.7 -14.4 H [facility] HospitalPlatelet Oyuci0627-29-26 05:04:00* Test Item Value Reference Range Interpretation Comments Platelet Count (test code = 777-3) 138 140-360 L [facility] HospitalNeutrophils (%) (Auto)2018-10-01 05:04:00 * Test Item Value Reference Range Interpretation Comments Neutrophils (%) (Auto) (test code = 01061-1) 57.8 38.7-80.0 [facility] HospitalLymphocytes (%) (Auto)2018-10-01 05:04:00 * Test Item Value Reference Range Interpretation Comments Lymphocytes (%) (Auto) (test code = 736-9) 27.6 18.0-39.1 [facility] HospitalMonocytes (%) (Auto)2018-10-01 05:04:00* Test Item Value Reference Range Interpretation Comments Monocytes (%) (Auto) (test code = 5905-5) 10.3 4.4-11.3 [facility] HospitalEosinophils (%) (Auto)2018-10-01 05:04:00 * Test Item Value Reference Range Interpretation Comments Eosinophils (%) (Auto) (test code = 713-8) 3.3 0.0-6.0 [facility] HospitalBasophils (%) (Auto)2018-10-01 05:04:00* Test Item Value Reference Range Interpretation Comments Basophils (%) (Auto) (test code = 706-2) 0.5 0.0-1.0 [facility] HospitalIM GRANULOCYTES %2018-10-01 05:04:00* Test Item Value Reference Range Interpretation Comments IM GRANULOCYTES % (test code = IM GRANULOCYTES %) 0.5 0.0- 1.0 [facility] HospitalNeutrophils # (Auto)2018-10-01 05:04:00* Test Item Value Reference Range Interpretation Comments Neutrophils # (Auto) (test code = 751-8) 3.7 2.1-6.9 [facility] HospitalLymphocytes # (Auto)2018-10-01 05:04:00* Test Item Value Reference Range Interpretation Comments Lymphocytes # (Auto) (test code = 23184-5) 1.8 1.0-3.2 [facility] HospitalMonocytes # (Auto)2018-10-01 05:04:00* Test Item Value Reference Range Interpretation Comments Monocytes # (Auto) (test code = 742-7) 0.7 0.2-0.8 [facility] HospitalEosinophils # (Auto)2018-10-01 05:04:00* Test Item Value Reference Range Interpretation Comments Eosinophils # (Auto) (test code = 711-2) 0.2 0.0-0.4 [facility] HospitalBasophils # (Auto)2018-10-01 05:04:00* Test Item Value Reference Range Interpretation Comments Basophils # (Auto) (test code = 704-7) 0.0 0.0-0.1 [facility] HospitalAbsolute Immature Granulocyte (auto 2018-10-01 05:04:00* Test Item Value Reference Range Interpretation Comments Absolute Immature Granulocyte (auto (todd t code = Absolute Immature Granulocyte (auto) 0.03 0-0.1 [facility] HospitalLipase2019-05-20 18:36:00* Test Item Value Reference Range Interpretation Comments Lipase (test code = 3040-3) 39 8-78 [facility] HospitalAmylase Zwhdj0959-54-45 18:17:00* Test Item Value Reference Range Interpretation Comments Amylase Level (test code = 1798-8) 32 25-125 [facility] HospitalLactic Acid Srgjf1723-70-81 11:11:00* Test Item Value Reference Range Interpretation Comments Lactic Acid Level (test code = Lactic Acid Level) 19.8 4.5- 19.8 [facility] HospitalLactic Acid Ktreh6380-97-16 11:11:00* Test Item Value Reference Range Interpretation Comments Lactic Acid Level (test code = Lactic Acid Level) 19.8 4.5- 19.8 [facility] HospitalB-Type Natriuretic Gkqlaca0738-43-95 10:59:00* Test Item Value Reference Range Interpretation Comments B-Type Natriuretic Peptide (test code = 06792-0) 38.5 0-100 [facility] HospitalCHEST SINGLE (PORTABLE)2018-09-30 10:54:00 [facility] [address] [place] [address] Patient Name: TROY VALENTINE MR #: [id number] : 1960 Age/Sex: 58/M Req #: [id number] [facility] Physician: Ordered by: SE ARIZA MD Report #: [id number] Location: ER Room/Bed: Procedure: [id number] DX/C HEST SINGLE (PORTABLE) Exam Date: 09/30/18 Exam Time : 1032 REPORT STATUS: Signed EXA MINATION: CHEST SINGLE (PORTABLE) INDICATION: Chest pain. COMPAR MELY: None FINDINGS: TUBES and LINES: None. LUNGS: Lungs are well inflated. There is no evidence of pneumonia or pulmonary edema. Calcifi ed granulomas in the right lung. PLEURA: No pleural effusion or pneumothor ax. HEART AND MEDIASTINUM: The cardiomediastinal silhouette is unremarkab le. BONES AND SOFT TISSUES: No acute osseous abnormality. UPPER ABDOMEN: No free air under the diaphragm. IMPRESSION: No acute radio graphic abnormality. Signed by: Dr. Chino Putnam MD on 09/30/2018 10:58 AM Dictated By: CHINO PUTNAM MD 57 COPY TO: BRAD ARIZA RD, MD Prothrombin Ldpb2012-23-21 10:53:00* Test Item Value Reference Range Interpretation Comments Prothrombin Time (test code = 5902-2) 14.2 11.9-14.5 [facility] HospitalProthromb Time International Ratio 2018-09-30 10:53:00* Test Item Value Reference Range Interpretation Comments Prothromb Time International Ratio (test code = 6301-6) 1.05 Oral Anticoagulant Therapy INR Values:1. Low Intensity Therapy 1.5 - 2.02 . Moderate Intensity Therapy 2.0 - 3.03. High Intensity Therapy(1) 2.5 - 3. 54. High Intensity Therapy(2) 3.0 - 4.05. Panic Value INR > 5.0 [facility] HospitalActivated Partial Thromboplast Time 2018-09-30 10:53:00* Test Item Value Reference Range Interpretation Comments Activated Partial Thromboplast Time (test code = 56677-7) 26.5 23.8-35.5 [facility] HospitalPOCT-GLUCOSE CLMZW3728-55-63 16:49:00* Test Item Value Reference Range Interpretation Comments POC-GLUCOSE METER (BEAKER) (test code = 1538) 226 mg/dL 70-110 H TESTED AT [address] [address] POCT-GLUCOSE [id number] 13:00:00* Test Item Value Reference Range Interpretation Comments POC-GLUCOSE METER (BEAKER) (test code = 1538) 174 mg/dL 70-110 H TESTED AT [address] [address] POCT-GLUCOSE SKWCG3714-69-06 09:24:00* Test Item Value Reference Range Interpretation Comments POC-GLUCOSE METER (BEAKER) (test code = 1538) 193 mg/dL 70-110 H TESTED AT [facility] [address] [place] [address] POCT-GLUCOSE SEOCL6934-45-59 21:03:00* Test Item Value Reference Range Interpretation Comments POC-GLUCOSE METER (BEAKER) (test code = 1538) 164 mg/dL 70-110 H TESTED AT [address] [address] POCT-GLUCOSE [id number] 13:24:00* Test Item Value Reference Range Interpretation Comments POC-GLUCOSE METER (BEAKER) (test code = 1538) 160 mg/dL 70-110 H TESTED AT [address] [address] HEMOGLOBIN [id number] 08:11:00* Test Item Value Reference Range Interpretation Comments HEMOGLOBIN A1C (BEAKER) (test code = 368) 9.7 % 4.3-6.1 H POCT-GLUCOSE [id number] 07:55:00* Test Item Value Reference Range Interpretation Comments POC-GLUCOSE METER (BEAKER) (test code = 1538) 197 mg/dL 70-110 H TESTED AT [address] [address] TSH/FREE T4 IF [id number] 05:37:00* Test Item Value Reference Range Interpretation Comments THYROID STIMULATING HORMONE (BEAKER) (test code = 772) 1.77 uIU/mL 0.35-4.94 TROPONIN [id number] 05:15:00* Test Item Value Reference Range Interpretation Comments TROPONIN I (BEAKER) (test code = 397) 0.01 ng/mL 0.00-0.03 Effective 03/31/2014: Reference Range [...] neurological disease, and pers istent tachyarrhythmia.COMPREHENSIVE METABOLIC [id number] 05:14:00* Test Item Value Reference Range Interpretation Comments TOTAL PROTEIN (BEAKER) (test code = 770) 5.8 gm/dL 6.0-8.3 L ALBUMIN (BEAKER) (test code = 1145) 3.5 g/dL 3.5-5.0 ALKALINE PHOSPHATASE (BEAKER) (test code = 346) 61 U/L 40-150 BILIRUBIN TOTAL (BEAKER) (test code = 377) 0.3 mg/dL 0.2-1.2 SODIUM (BEAKER) (test code = 381) 138 meq/L 136-145 POTASSIUM (BEAKER) (test code = 379) 4.0 meq/L 3.5-5.1 CHLORIDE (BEAKER) (test code = 382) 103 meq/L 98-107 CO2 (BEAKER) (test code = 355) 25 meq/L 22-29 BLOOD UREA NITROGEN (BEAKER) (test code = 354) 29 mg/dL 7-21 H CREATININE (BEAKER) (test code = 358) 1.77 mg/dL 0.57-1.25 H GLUCOSE RANDOM (BEAKER) (test code = 652) 206 mg/dL 70-105 H CALCIUM (BEAKER) (test code = 697) 9.2 mg/dL 8.4-10.2 AST (SGOT) (BEAKER) (test code = 353) 54 U/L 5-34 H ALT (SGPT) (BEAKER) (test code = 347) 46 U/L 6-55 EGFR (BEAKER) (test code = 1092) 40 mL/min/1.73 sq m ESTIMATED GFR IS NOT ACCURATE CREATININE CLEARANCE IN PREDICTING GLOMERULAR FILTRATION RATE. ESTIMATED GFR IS NOT APPLICABLE FOR DIALYSIS PATIENTS. LIPID [id number] 05:14:00* Test Item Value Reference Range Interpretation Comments TRIGLYCERIDES (BEAKER) (test code = 540) 448 mg/dL CHOLESTEROL (BEAKER) (test code = 631) 219 mg/dL HDL CHOLESTEROL (BEAKER) (test code = 976) 26 mg/dL Calculated LDL not valid if [...] 2016-10-12 05:11:00* Test Item Value Reference Range Interpretation Comments WHITE BLOOD CELL COUNT (BEAKER) (test code = 775) 6.4 K/ L 4.0- 10.0 RED BLOOD CELL COUNT (BEAKER) (test code = 761) 4.10 M/ L 4.20-5 .80 L HEMOGLOBIN (BEAKER) (test code = 410) 12.6 GM/DL 13.0-16.8 L HEMATOCRIT (BEAKER) (test code = 411) 37.9 % 40.0-50.0 L MEAN CORPUSCULAR VOLUME (BEAKER) (test code = 753) 92.3 fL 82. 0-98.0 MEAN CORPUSCULAR HEMOGLOBIN (BEAKER) (test code = 751) 30.8 pg 27.0-33.0 MEAN CORPUSCULAR HEMOGLOBIN CONC (BEAKER) (test code = 752) 33.3 GM/DL 32.0-36.0 RED CELL DISTRIBUTION WIDTH (BEAKER) (test code = 412) 13.1 % 10.3-14.2 PLATELET COUNT (BEAKER) (test code = 756) 127 K/CU MM 150-430 L MEAN PLATELET VOLUME (BEAKER) (test code = 754) 8.6 fL 6.5-10 .5 NUCLEATED RED BLOOD CELLS (BEAKER) (test code = 413) 0 /100 WBC 0 -0 NEUTROPHILS RELATIVE PERCENT (BEAKER) (test code = 429) 65 % LYMPHOCYTES RELATIVE PERCENT (BEAKER) (test code = 430) 23 % MONOCYTES RELATIVE PERCENT (BEAKER) (test code = 431) 9 % EOSINOPHILS RELATIVE PERCENT (BEAKER) (test code = 432) 3 % BASOPHILS RELATIVE PERCENT (BEAKER) (test code = 437) 0 % NEUTROPHILS ABSOLUTE COUNT (BEAKER) (test code = 670) 4.20 K/ L 1.80-8.00 LYMPHOCYTES ABSOLUTE COUNT (BEAKER) (test code = 414) 1.45 K/ L 1.48-4.50 L MONOCYTES ABSOLUTE COUNT (BEAKER) (test code = 415) 0.58 K/ L 0. 00-1.30 EOSINOPHILS ABSOLUTE COUNT (BEAKER) (test code = 416) 0.16 K/ L 0.00-0.50 BASOPHILS ABSOLUTE COUNT (BEAKER) (test code = 417) 0.03 K/ L 0. 00-0.20 0.89HJHJ5040-64-21 05:06:00* Test Item Value Reference Range Interpretation Comments PARTIAL THROMBOPLASTIN TIME (BEAKER) (test code = 760) 24.6 seconds 22.5-36.0 PROTHROMBIN TIME/[id number] 05:05:00* Test Item Value Reference Range Interpretation Comments PROTIME (BEAKER) (test code = 759) 14.0 seconds 11.7-14.7 INR (BEAKER) (test code = 370) 1.1 <=5.9 RECOMMENDED COUMADIN/WARFARIN INR THERAPY RANGESSTANDARD DOSE: 2.0 - 3.0 Inclu luis: PROPHYLAXIS for venous thrombosis, systemic embolization; TREATMENT for santo ous thrombosis and/or pulmonary embolus.HIGH RISK: Target INR is 2.5-3.5 for pat ients with mechanical heart valves.CREATINE KINASE (CK), TOTAL AND [id number] 23:26:00* Test Item Value Reference Range Interpretation Comments CREATINE KINASE TOTAL (BEAKER) (test code = 380) 64 U/L 29-20 0 CREATINE KINASE-MB (BEAKER) (test code = 750) 2.0 ng/mL 0.0-6.6 CREATINE KINASE-MB INDEX (BEAKER) (test code = 395) 3.1 % Effective 03/31/2014: CK-MB Reference Range ChangeNew: 0.0-6.6 Previous: 0.0- 4.9CK-MB Reference Range:<6.7 Normal6.7-10.0 Borderline>10.0 Abnormal TROPONIN [id number] 23:26:00* Test Item Value Reference Range Interpretation Comments TROPONIN I (BEAKER) (test code = 397) 0.01 ng/mL 0.00-0.03 Effective 03/31/2014: Reference Range [...] acute neurological disease, and pers istent tachyarrhythmia.POCT-GLUCOSE [id number] 21:08:00* Test Item Value Reference Range Interpretation Comments POC-GLUCOSE METER (MAL) (test code = 1538) 158 mg/dL 70-110 H TESTED AT [facility] [address] [facility] [place] [address] CREATINE KINASE (CK), TOTAL AND [id number] 18:27:00* Test Item Value Reference Range Interpretation Comments CREATINE KINASE TOTAL (BEAKER) (test code = 380) 69 U/L 29-20 0 CREATINE KINASE-MB (BEAKER) (test code = 750) 2.0 ng/mL 0.0-6.6 CREATINE KINASE-MB INDEX (BEAKER) (test code = 395) 2.9 % Effective 03/31/2014: CK-MB Reference Range ChangeNew: 0.0-6.6 Previous: 0.0- 4.9CK-MB Reference Range:<6.7 Normal6.7-10.0 Borderline>10.0 Abnormal TROPONIN [id number] 18:27:00* Test Item Value Reference Range Interpretation Comments TROPONIN I (BEAKER) (test code = 397) 0.01 ng/mL 0.00-0.03 Effective 03/31/2014: Reference Range [...] (BNP)2016-10-11 18:27:00* Test Item Value Reference Range Interpretation Comments B-TYPE NATRIURETIC PEPTIDE (BEAKER) (test code = 700) 34 pg/mL 0-100 [id number] 18:21:00* Test Item Value Reference Range Interpretation Comments MAGNESIUM (BEAKER) (test code = 627) 1.7 mg/dL 1.6-2.6 Specimen slightly hemolyzed BASIC METABOLIC [id number] 18:21:00* Test Item Value Reference Range Interpretation Comments SODIUM (BEAKER) (test code = 381) 140 meq/L 136-145 POTASSIUM (BEAKER) (test code = 379) 4.2 meq/L 3.5-5.1 Specimen slightly hemolyzed CHLORIDE (BEAKER) (test code = 382) 104 meq/L 98-107 CO2 (BEAKER) (test code = 355) 23 meq/L 22-29 BLOOD UREA NITROGEN (BEAKER) (test code = 354) 26 mg/dL 7-21 H CREATININE (BEAKER) (test code = 358) 1.68 mg/dL 0.57-1.25 H Specimen slightly hemolyzed GLUCOSE RANDOM (BEAKER) (test code = 652) 129 mg/dL 70-105 H CALCIUM (BEAKER) (test code = 697) 9.7 mg/dL 8.4-10.2 EGFR (BEAKER) (test code = 1092) 42 mL/min/1.73 sq m ESTIMATED GFR IS NOT ACCURATE CREATININE CLEARANCE IN PREDICTING GLOMERULAR FILTRATION RATE. ESTIMATED GFR IS NOT APPLICABLE FOR DIALYSIS PATIENTS. PT/[id number] 18:13:00* Test Item Value Reference Range Interpretation Comments PROTIME (BEAKER) (test code = 759) 13.0 seconds 11.7-14.7 INR (BEAKER) (test code = 370) 1.0 <=5.9 PARTIAL THROMBOPLASTIN TIME (BEAKER) (test code = 760) 25.7 seconds 22.5-36.0 RECOMMENDED COUMADIN/WARFARIN INR THERAPY RANGESSTANDARD DOSE: 2.0 - 3.0 Inclu luis: PROPHYLAXIS for venous thrombosis, systemic embolization; TREATMENT for santo ous thrombosis and/or pulmonary embolus.HIGH RISK: Target INR is 2.5-3.5 for pat ients with mechanical heart valves.CBC W/PLT COUNT & AUTO [id number] 18:02:00* Test Item Value Reference Range Interpretation Comments WHITE BLOOD CELL COUNT (BEAKER) (test code = 775) 7.6 K/ L 4.0- 10.0 RED BLOOD CELL COUNT (BEAKER) (test code = 761) 4.60 M/ L 4.20-5 .80 HEMOGLOBIN (BEAKER) (test code = 410) 13.5 GM/DL 13.0-16.8 HEMATOCRIT (BEAKER) (test code = 411) 42.1 % 40.0-50.0 MEAN CORPUSCULAR VOLUME (BEAKER) (test code = 753) 91.4 fL 82. 0-98.0 MEAN CORPUSCULAR HEMOGLOBIN (BEAKER) (test code = 751) 29.4 pg 27.0-33.0 MEAN CORPUSCULAR HEMOGLOBIN CONC (BEAKER) (test code = 752) 32.1 GM/DL 32.0-36.0 RED CELL DISTRIBUTION WIDTH (BEAKER) (test code = 412) 14.8 % 10.3-14.2 H PLATELET COUNT (BEAKER) (test code = 756) 142 K/CU MM 150-430 L MEAN PLATELET VOLUME (BEAKER) (test code = 754) 8.3 fL 6.5-10 .5 NUCLEATED RED BLOOD CELLS (BEAKER) (test code = 413) 0 /100 WBC 0 -0 NEUTROPHILS RELATIVE PERCENT (BEAKER) (test code = 429) 64 % LYMPHOCYTES RELATIVE PERCENT (BEAKER) (test code = 430) 25 % MONOCYTES RELATIVE PERCENT (BEAKER) (test code = 431) 9 % EOSINOPHILS RELATIVE PERCENT (BEAKER) (test code = 432) 2 % BASOPHILS RELATIVE PERCENT (BEAKER) (test code = 437) 1 % NEUTROPHILS ABSOLUTE COUNT (BEAKER) (test code = 670) 4.85 K/ L 1.80-8.00 LYMPHOCYTES ABSOLUTE COUNT (BEAKER) (test code = 414) 1.91 K/ L 1.48-4.50 MONOCYTES ABSOLUTE COUNT (BEAKER) (test code = 415) 0.66 K/ L 0. 00-1.30 EOSINOPHILS ABSOLUTE COUNT (BEAKER) (test code = 416) 0.17 K/ L 0.00-0.50 BASOPHILS ABSOLUTE COUNT (BEAKER) (test code = 417) 0.05 K/ L 0. 00-0.20 0.00
--- NOTE | 2019-12-20 23:03 | Diagnostic Imaging Report ---
Examination: CT BRAIN WO CONTRAST History:Headache Comparison studies:None Technique: Axial images were obtained from the skull base to the vertex. Coronal and sagittal images reconstructed from the axial data. Dose modulation, iterative reconstruction, and/or weight based adjustment of the mA/kV was utilized to reduce the radiation dose to as low as reasonably achievable. Intravenous contrast: None Findings: Scalp: No abnormalities. Bones: No fractures, blastic or lytic lesions. Brain sulci: Appropriate for age. Ventricles: Normal in size and configuration. No hydrocephalus. Extra-axial space: No abnormalities. Parenchyma: No masses, hemorrhage, or acute or chronic cortical based vascular insults. Sellar/suprasellar region: No abnormalities. Craniocervical junction: Patent foramen magnum. No Chiari one malformation. Incidental findings: None. Impression: No intracranial abnormalities. Signed by: Dr. Usha Casarez M.D. on 12/20/2019 10:59 PM
--- NOTE | 2019-12-20 23:04 | Diagnostic Imaging Report ---
EXAMINATION: CHEST SINGLE (PORTABLE) INDICATION: ^Y ^CHEST PAIN ^[id number] ^[id number] COMPARISON: Radiograph dated 08/12/2019 FINDINGS: TUBES and LINES: None. LUNGS: Low lung volumes accentuate the perihilar markings. No consolidation. Strandy atelectasis in the lower left lung. PLEURA: No pleural effusion or pneumothorax. HEART AND MEDIASTINUM: The heart is mildly enlarged. BONES AND SOFT TISSUES: No acute osseous lesion. Soft tissues are unremarkable. UPPER ABDOMEN: No free air under the diaphragm. IMPRESSION: Unchanged cardiomegaly. No edema. No consolidation. Signed by: Wesly Pearce MD on 12/20/2019 11:00 PM
--- NOTE | 2019-12-20 23:12 | Diagnostic Imaging Report ---
EXAM: Right Upper Quadrant Ultrasound INDICATION: ^RUQ PAIN COMPARISON: None. TECHNIQUE: Transverse and longitudinal images of the right upper abdomen were obtained. FINDINGS: Liver: Size: 21.1 cm in the right midclavicular line, normal Appearance: Increased echogenicity, nodular contour Mass: Question 7 mm hyperechogenic lesion in the right hepatic lobe. Gallbladder: Stones/Sludge: None Wall: 0.2 cm Appearance: No pericholecystic fluid or hydrops. Sonographic Sandoval's Sign: Negative Bile Ducts: Intrahepatic Ducts: No dilatation Extrahepatic Ducts: Common bile duct measures 0.6 cm, no dilatation Pancreas: Suboptimally evaluated due to bowel gas. Visualized portions are normal. Right Kidney: Size: 13.0 cm Echogenicity: Normal Parenchymal thickness: Normal Collecting system: No hydronephrosis Stones: None Cyst/Mass: None Vessels: Aorta: Nonvisualized due to bowel gas. Inferior Vena Cava: Nonvisualized due to bowel gas. Main portal vein: Normal size and flow direction. Free Fluid: No ascites or pleural effusion IMPRESSION: 1. Cirrhotic liver morphology with possible 7 mm hyperechoic indeterminate lesion in the right hepatic lobe. Nonemergent liver protocol CT or MR is recommended for further evaluation to exclude hepatocellular carcinoma. 2. The pancreas, aorta, and IVC are not completely evaluated due to bowel gas. 3. No cholelithiasis. No evidence of acute cholecystitis. Signed by: Wesly Pearce MD on 12/20/2019 11:08 PM
[2019-12-21] MEDS ORDERED: SODIUM CHLORIDE 0.9% 500ML 500 ML IV STA (00:04)
[2019-12-21] MEDS ORDERED: CLONIDINE HCL 0.2 MG TAB PO ONE (01:15)
[2019-12-21] MEDS ORDERED: SODIUM CHLORIDE 0.9% 50ML 50 ML ONE (01:18)
[2019-12-21] MEDS ORDERED: IOPAMIDOL 370 MG/ML 200 ML INFUS..BTL INJ ONE (01:18)
--- NOTE | 2019-12-21 04:16 | Diagnostic Imaging Report ---
EXAM: CT Abdomen and Pelvis WITHOUT and WITH contrast INDICATION: LIVER MASS PROTOCOL COMPARISON: Ultrasound from today. TECHNIQUE: Abdomen and pelvis were scanned utilizing a multidetector helical scanner from the lung base to the pubic symphysis before and after administration of IV contrast. Coronal and sagittal reformations were obtained. Routine protocol was performed. Scan was performed when during portal venous phase. IV CONTRAST: 150 mL of Omnipaque 300 ORAL CONTRAST: None COMPLICATIONS: None RADIATION DOSE: Total DLP: 2509.15 mGy*cm Estimated effective dose: (DLP x 0.015 x size factor) mSv CTDIvol has been reviewed. It is below the limits set by the Radiation Protocol Committee (RPC). Dose modulation, iterative reconstruction, and/or weight based adjustment of the mA/kV was utilized to reduce the radiation dose to as low as reasonably achievable. FINDINGS: LINES and TUBES: None. LOWER THORAX: Severe coronary artery calcifications. Minimal dependent atelectasis. HEPATOBILIARY: Hepatic steatosis. Nodular hepatic contour suggests cirrhosis. 2.4 cm lesion in hepatic segment 4A is mildly hyperdense on noncontrast imaging measuring 60 Hounsfield units. The lesion does not appear to enhance late arterial phase-60 HU units. On portal venous phase, the lesion mildly enhances at 90 Hounsfield units. No washout or pseudocapsule. GALLBLADDER: No radio-opaque stones or sludge. No wall thickening. SPLEEN: No splenomegaly. PANCREAS: No focal masses or ductal dilatation. ADRENALS: No adrenal nodules KIDNEYS/URETERS: 2.1 cm lobulated cystic lesion at the anterior aspect of the left kidney demonstrates equivocal enhancement. Additional simple renal cysts. GI TRACT: No abnormal distention, wall thickening, or evidence of bowel obstruction. Appendix is normal. PELVIC ORGANS/BLADDER: Unremarkable. LYMPH NODES: No lymphadenopathy. VESSELS: Atherosclerosis without aneurysm. PERITONEUM / RETROPERITONEUM: No free air or fluid. BONES: Unremarkable. SOFT TISSUES: Unremarkable. IMPRESSION: 1. 2.4 cm hepatic segment 4A lesion without arterial phase hyperenhancement, pseudocapsule, or washout. The lesion mildly enhances on portal venous phase. These characteristics are atypical for hepatocellular carcinoma. Given findings of cirrhosis, GI consultation and repeat liver protocol CT is recommended in 3 months. 2. 2.2 cm lobulated cystic lesion in the left kidney demonstrates a cortical enhancement. Consider follow-up renal mass protocol CT and 6 months, or this can be reassessed with the liver mass.. Signed by: Wesly Pearce MD on 12/21/2019 4:12 AM
[2019-12-21] MEDS ORDERED: HYDRALAZINE HCL 20 MG/ML VIAL IV STA (04:35)
== END 2019-12-21 05:10 | disposition home or self-care (01) ==
LOC: ER 20:21
DX: R07.89 Other chest pain (principal); R10.11 Right upper quadrant pain; K74.60 Unspecified cirrhosis of liver; K76.9 Liver disease, unspecified; N28.9 Disorder of kidney and ureter, unspecified; I10 Essential (primary) hypertension; R94.31 Abnormal electrocardiogram [ECG] [EKG]
CPT/HCPCS: 36415; 70450; 71045; 74178; 76705; 80053; 82150; 82550; 82553; 82948; 83690; 83880; 84484; 85025; 85379; 93005; 99284; J0360 ×2; J2270; J2405; J7040; Q9967

== ENCOUNTER 2020-05-30 20:50 | Inpatient (IN) | payer OTHER ==
[~2020-05-30] VITALS: Ht 170.2 cm; Wt 133.5 kg
[2020-05-30] MEDS ORDERED: DEXAMETHASONE SOD PHOS 10 MG/1 ML VIAL IV ONE (21:15)
[2020-05-30 21:19] LABS: BASOPHILS % 0.2 % (0.0-1.0); HEMATOCRIT 34.3 % (38.2-49.6); HEMOGLOBIN 10.7 g/dL (14.0-18.0); LYMPHOCYTES # (AUTO) 0.7 (1.0-3.2); LYMPHOCYTES % 11.1 % (18.0-39.1); MEAN CORPUSCULAR HEMOGLOBIN 28.1 pg (28-32); MEAN CORPUSCULAR HGB CONC 31.2 g/dL (31-35); MONOCYTES # (AUTO) 0.2 (0.2-0.8); MONOCYTES % 3.5 % (4.4-11.3); NEUTROPHILS # (AUTO) 5.1 (2.1-6.9); NEUTROPHILS % 84.9 % (38.7-80.0); PLATELET COUNT 135 x10e3/uL (140-360); RED BLOOD COUNT 3.81 x10e6/uL (4.3-5.7); RED CELL DISTRIBUTION WIDTH 15.1 % (11.7-14.4)
[2020-05-30] MEDS ORDERED: ACETAMINOPHEN 325 MG TAB ONE (21:19)
[2020-05-30 21:32] LABS: ALBUMIN 2.7 g/dL (3.5-5.0); ALBUMIN/GLOBULIN RATIO 0.8 (0.8-2.0); ANION GAP 15.2 mmol/L (8-16); CALCIUM 8.2 mg/dL (8.4-10.2); CREATININE, SERUM 1.89 mg/dL (0.72-1.25); POTASSIUM 4.2 mmol/L (3.5-5.1)
[2020-05-30 21:51] LABS: CREATINE KINASE MB 1.3 ng/mL (0-5.0)
[2020-05-30] MEDS ORDERED: ACETAMINOPHEN 325 MG TAB PO ONE (22:15)
[2020-05-31] VITALS (8 sets, daily range): BP systolic 122–187; BP diastolic 58–100
[2020-05-31] MEDS ORDERED: SODIUM CHLORIDE FLUSH 10 ML SYR IV ONE (01:00)
[2020-05-31] MEDS ORDERED: ACETAMINOPHEN 325 MG TAB PO PRN (01:00)
[2020-05-31] MEDS ORDERED: BASAGLAR K100 UNIT/1 SQ (02:29)
[2020-05-31] MEDS ORDERED: CYMBALTA30 MG PO (02:29)
[2020-05-31] MEDS ORDERED: HUMALOG100 UNIT/3 SQ (02:33)
[2020-05-31 04:43] LABS: HEMATOCRIT 30.2 % (38.2-49.6); HEMOGLOBIN 9.4 g/dL (14.0-18.0); LYMPHOCYTES # (AUTO) 0.2 (1.0-3.2); LYMPHOCYTES % 4.5 % (18.0-39.1); MEAN CORPUSCULAR HEMOGLOBIN 28.1 pg (28-32); MEAN CORPUSCULAR HGB CONC 31.1 g/dL (31-35); MEAN CORPUSCULAR VOLUME 90.4 fL (81-99); MONOCYTES # (AUTO) 0.2 (0.2-0.8); MONOCYTES % 2.9 % (4.4-11.3); NEUTROPHILS # (AUTO) 4.8 (2.1-6.9); NEUTROPHILS % 92.2 % (38.7-80.0); PLATELET COUNT 118 x10e3/uL (140-360); RED BLOOD COUNT 3.34 x10e6/uL (4.3-5.7); RED CELL DISTRIBUTION WIDTH 15.2 % (11.7-14.4)
[2020-05-31 05:01] LABS: ALBUMIN 2.3 g/dL (3.5-5.0); ALBUMIN/GLOBULIN RATIO 0.7 (0.8-2.0); ANION GAP 14.7 mmol/L (8-16); CALCIUM 7.5 mg/dL (8.4-10.2); CREATININE, SERUM 1.99 mg/dL (0.72-1.25); POTASSIUM 4.7 mmol/L (3.5-5.1)
[2020-05-31] MEDS ORDERED: SODIUM CHLORIDE 0.9% 250ML 250 ML ONE (10:12)
[2020-05-31] MEDS: DEXAMETHASONE 4 MG TAB PO SCH (10:17)
[2020-05-31] MEDS: CEFTRIAXONE SOD 1 GM/NS 50 ML 50 ML IV SCH (10:43)
[2020-05-31] MEDS ORDERED: ONDANSETRON HCL INJ 2MG/ML 2ML 2 MG/ML VIAL IV PRN (13:00)
[2020-05-31] MEDS ORDERED: DEXTROSE 50% SYRINGE 50 ML IV PRN (13:00)
[2020-05-31] MEDS: AZITHROMYCIN 500MG/NS 250 ML 250 ML IV SCH (13:54)
[2020-05-31] MEDS ORDERED: ALBUTEROL SULFATE HFA 8GM INHALATION AEROSOL INH PRN (14:30)
[2020-05-31] MEDS ORDERED: HYDRALAZINE HCL 25 MG TAB PO SCH (15:00)
[2020-05-31] MEDS: GUAIFENESIN 600MG/DEXTROMETHORPHAN 30MG TABSR PO PRN (15:35)
[2020-05-31] MEDS: HYDRALAZINE HCL 100 MG TABLET PO SCH ×2 (15:35→21:37)
[2020-05-31] MEDS ORDERED: ENOXAPARIN 30 MG/0.3 ML SYR SC SCH (17:00)
[2020-05-31] MEDS: INSULIN REGULAR, HUMAN 100 UNIT/1 ML 3ML VIAL SQ SCH ×2 (17:01→22:35)
[2020-05-31] MEDS ORDERED: REMDESIVIR 200MG/NS 100ML 200 MG in SODIUM CHLORIDE 0.9% 100 ML 100 ML IV ONE (23:00)
[2020-05-31] MEDS ORDERED: REMDESIVIR 200MG/NS 100ML 200 MG IV ONE (23:45)
[2020-06-01] VITALS (8 sets, daily range): BP systolic 119–186; BP diastolic 58–83
[2020-06-01 04:48] LABS: HEMATOCRIT 35.3 % (38.2-49.6); HEMOGLOBIN 10.9 g/dL (14.0-18.0); LYMPHOCYTES # (AUTO) 0.4 (1.0-3.2); LYMPHOCYTES % 4.9 % (18.0-39.1); MEAN CORPUSCULAR HEMOGLOBIN 27.7 pg (28-32); MEAN CORPUSCULAR HGB CONC 30.9 g/dL (31-35); MEAN CORPUSCULAR VOLUME 89.6 fL (81-99); MONOCYTES # (AUTO) 0.3 (0.2-0.8); MONOCYTES % 4.8 % (4.4-11.3); NEUTROPHILS # (AUTO) 6.4 (2.1-6.9); NEUTROPHILS % 90.2 % (38.7-80.0); PLATELET COUNT 181 x10e3/uL (140-360); RED BLOOD COUNT 3.94 x10e6/uL (4.3-5.7); RED CELL DISTRIBUTION WIDTH 14.9 % (11.7-14.4)
[2020-06-01 05:10] LABS: ALBUMIN 2.4 g/dL (3.5-5.0); ALBUMIN/GLOBULIN RATIO 0.6 (0.8-2.0); ANION GAP 16.6 mmol/L (8-16); CREATININE, SERUM 1.69 mg/dL (0.72-1.25); POTASSIUM 4.6 mmol/L (3.5-5.1)
[2020-06-01] MEDS ORDERED: METOPROLOL TARTRATE INJ 1 MG/ML VIAL IV ONE (06:00)
[2020-06-01] MEDS: GUAIFENESIN 600MG/DEXTROMETHORPHAN 30MG TABSR PO PRN ×2 (08:18→14:25)
[2020-06-01] MEDS ORDERED: ATORVASTATIN 20 MG TAB PO SCH (09:00)
[2020-06-01] MEDS: INSULIN REGULAR, HUMAN 100 UNIT/1 ML 3ML VIAL SQ SCH ×4 (09:19→20:45)
[2020-06-01] MEDS: ATORVASTATIN 40 MG TAB PO SCH (09:57)
[2020-06-01] MEDS: PRASUGREL 10 MG TAB PO SCH (09:57)
[2020-06-01] MEDS: DULOXETINE HCL 30 MG DELAYED RELEASE PO SCH (09:57)
[2020-06-01] MEDS: ASPIRIN 81 MG CHEW TAB PO SCH (09:57)
[2020-06-01] MEDS: HYDRALAZINE HCL 100 MG TABLET PO SCH ×3 (09:57→20:45)
[2020-06-01] MEDS: PANTOPRAZOLE SOD 40 MG TABEC PO SCH (09:57)
[2020-06-01] MEDS: CEFTRIAXONE SOD 1 GM/NS 50 ML 50 ML IV SCH (09:57)
[2020-06-01] MEDS: NIFEDIPINE CR 30 MG TAB PO SCH (09:57)
[2020-06-01] MEDS: DEXAMETHASONE 4 MG TAB PO SCH (09:57)
[2020-06-01] MEDS: ISOSORBIDE MONONITRATE 30 MG TAB CR PO SCH (09:57)
[2020-06-01 10:51] LABS: ABG HCO3 27 mmol/L (22-26); ABG PCO2 45 mmHg (35-45); ABG PH 7.39 (7.35-7.45); ABG PO2 186 mmHg (80-105); ABG TCO2 29
[2020-06-01] MEDS: AZITHROMYCIN 500MG/NS 250 ML 250 ML IV SCH (14:25)
[2020-06-01] MEDS: ENOXAPARIN SOD INJ 40 MG/0.4 ML SYR SC SCH (16:11)
[2020-06-01] MEDS: REMDESIVIR 100MG/NS 100ML 100 MG in SODIUM CHLORIDE 0.9% 100 ML 100 ML IV SCH (20:45)
[2020-06-01] MEDS: INSULIN GLARGINE 100 UNITS/ML VIAL SQ SCH (20:45)
[2020-06-02] VITALS (8 sets, daily range): BP systolic 117–149; BP diastolic 61–79
[2020-06-02] MEDS: GUAIFENESIN 600MG/DEXTROMETHORPHAN 30MG TABSR PO PRN (00:33)
[2020-06-02 04:51] LABS: HEMATOCRIT 33.6 % (38.2-49.6); HEMOGLOBIN 10.4 g/dL (14.0-18.0); LYMPHOCYTES # (AUTO) 0.4 (1.0-3.2); LYMPHOCYTES % 6.7 % (18.0-39.1); MEAN CORPUSCULAR VOLUME 90.6 fL (81-99); MONOCYTES # (AUTO) 0.4 (0.2-0.8); MONOCYTES % 6.5 % (4.4-11.3); NEUTROPHILS # (AUTO) 4.8 (2.1-6.9); NEUTROPHILS % 86.1 % (38.7-80.0); PLATELET COUNT 203 x10e3/uL (140-360); RED BLOOD COUNT 3.71 x10e6/uL (4.3-5.7); RED CELL DISTRIBUTION WIDTH 14.9 % (11.7-14.4)
[2020-06-02 05:16] LABS: ALBUMIN 2.3 g/dL (3.5-5.0); ALBUMIN/GLOBULIN RATIO 0.6 (0.8-2.0); ANION GAP 17.5 mmol/L (8-16); CREATININE, SERUM 1.73 mg/dL (0.72-1.25); POTASSIUM 4.5 mmol/L (3.5-5.1)
[2020-06-02] MEDS: DULOXETINE HCL 30 MG DELAYED RELEASE PO SCH (08:56)
[2020-06-02] MEDS: ASPIRIN 81 MG CHEW TAB PO SCH (08:56)
[2020-06-02] MEDS: DEXAMETHASONE 4 MG TAB PO SCH (08:57)
[2020-06-02] MEDS: ATORVASTATIN 40 MG TAB PO SCH (08:58)
[2020-06-02] MEDS: ISOSORBIDE MONONITRATE 30 MG TAB CR PO SCH (08:58)
[2020-06-02] MEDS: HYDRALAZINE HCL 100 MG TABLET PO SCH ×3 (08:58→21:00)
[2020-06-02] MEDS: PRASUGREL 10 MG TAB PO SCH (08:58)
[2020-06-02] MEDS: CEFTRIAXONE SOD 1 GM/NS 50 ML 50 ML IV SCH (08:59)
[2020-06-02] MEDS: NIFEDIPINE CR 30 MG TAB PO SCH (08:59)
[2020-06-02] MEDS: PANTOPRAZOLE SOD 40 MG TABEC PO SCH (08:59)
[2020-06-02] MEDS: INSULIN REGULAR, HUMAN 100 UNIT/1 ML 3ML VIAL SQ SCH ×4 (09:22→20:59)
[2020-06-02] MEDS: AZITHROMYCIN 500MG/NS 250 ML 250 ML IV SCH (14:17)
[2020-06-02] MEDS: ENOXAPARIN SOD INJ 40 MG/0.4 ML SYR SC SCH (16:39)
[2020-06-02] MEDS: REMDESIVIR 100MG/NS 100ML 100 MG in SODIUM CHLORIDE 0.9% 100 ML 100 ML IV SCH (20:58)
[2020-06-02] MEDS: INSULIN GLARGINE 100 UNITS/ML VIAL SQ SCH (20:58)
[2020-06-03] VITALS (8 sets, daily range): BP systolic 149–166; BP diastolic 64–82
[2020-06-03 05:11] LABS: ALBUMIN 2.4 g/dL (3.5-5.0); ALBUMIN/GLOBULIN RATIO 0.7 (0.8-2.0); ANION GAP 14.3 mmol/L (8-16); CALCIUM 8.1 mg/dL (8.4-10.2); CREATININE, SERUM 1.66 mg/dL (0.72-1.25); POTASSIUM 4.3 mmol/L (3.5-5.1)
[2020-06-03] MEDS: PRASUGREL 10 MG TAB PO SCH (09:30)
[2020-06-03] MEDS: DEXAMETHASONE 4 MG TAB PO SCH (09:30)
[2020-06-03] MEDS: GUAIFENESIN 600MG/DEXTROMETHORPHAN 30MG TABSR PO PRN (09:30)
[2020-06-03] MEDS: ASPIRIN 81 MG CHEW TAB PO SCH (09:30)
[2020-06-03] MEDS: DULOXETINE HCL 30 MG DELAYED RELEASE PO SCH (09:30)
[2020-06-03] MEDS: ISOSORBIDE MONONITRATE 30 MG TAB CR PO SCH (09:31)
[2020-06-03] MEDS: PANTOPRAZOLE SOD 40 MG TABEC PO SCH (09:31)
[2020-06-03] MEDS: NIFEDIPINE CR 30 MG TAB PO SCH (09:31)
[2020-06-03] MEDS: HYDRALAZINE HCL 100 MG TABLET PO SCH ×3 (09:31→20:47)
[2020-06-03] MEDS: CEFTRIAXONE SOD 1 GM/NS 50 ML 50 ML IV SCH (09:31)
[2020-06-03] MEDS: ATORVASTATIN 40 MG TAB PO SCH (09:31)
[2020-06-03] MEDS: INSULIN REGULAR, HUMAN 100 UNIT/1 ML 3ML VIAL SQ SCH ×4 (09:40→20:57)
[2020-06-03] MEDS: AZITHROMYCIN 500MG/NS 250 ML 250 ML IV SCH (14:07)
[2020-06-03] MEDS: ENOXAPARIN SOD INJ 40 MG/0.4 ML SYR SC SCH (17:20)
[2020-06-03] MEDS: REMDESIVIR 100MG/NS 100ML 100 MG in SODIUM CHLORIDE 0.9% 100 ML 100 ML IV SCH (20:47)
[2020-06-03] MEDS: INSULIN GLARGINE 100 UNITS/ML VIAL SQ SCH (20:58)
[2020-06-04] VITALS (9 sets, daily range): BP systolic 125–179; BP diastolic 64–89
[2020-06-04] MEDS: INSULIN REGULAR, HUMAN 100 UNIT/1 ML 3ML VIAL SQ SCH ×4 (08:00→21:17)
[2020-06-04] MEDS: ASPIRIN 81 MG CHEW TAB PO SCH (08:26)
[2020-06-04] MEDS: HYDRALAZINE HCL 100 MG TABLET PO SCH ×3 (08:27→21:14)
[2020-06-04] MEDS: DULOXETINE HCL 30 MG DELAYED RELEASE PO SCH (08:27)
[2020-06-04] MEDS: PRASUGREL 10 MG TAB PO SCH (08:27)
[2020-06-04] MEDS: DEXAMETHASONE 4 MG TAB PO SCH (08:27)
[2020-06-04] MEDS: ISOSORBIDE MONONITRATE 30 MG TAB CR PO SCH (08:28)
[2020-06-04] MEDS: ATORVASTATIN 40 MG TAB PO SCH (08:28)
[2020-06-04] MEDS: PANTOPRAZOLE SOD 40 MG TABEC PO SCH (08:28)
[2020-06-04] MEDS: NIFEDIPINE CR 30 MG TAB PO SCH (08:28)
[2020-06-04] MEDS: CEFTRIAXONE SOD 1 GM/NS 50 ML 50 ML IV SCH (08:47)
[2020-06-04] MEDS: AZITHROMYCIN 500MG/NS 250 ML 250 ML IV SCH (14:01)
[2020-06-04] MEDS: ENOXAPARIN SOD INJ 40 MG/0.4 ML SYR SC SCH (16:17)
[2020-06-04] MEDS: REMDESIVIR 100MG/NS 100ML 100 MG in SODIUM CHLORIDE 0.9% 100 ML 100 ML IV SCH (21:14)
[2020-06-04] MEDS: INSULIN GLARGINE 100 UNITS/ML VIAL SQ SCH (21:16)
[2020-06-05] VITALS (8 sets, daily range): BP systolic 142–194; BP diastolic 66–97
[2020-06-05] MEDS: CLONIDINE HCL 0.1 MG TAB PO PRN (04:31)
[2020-06-05 04:53] LABS: BASOPHILS % 0.2 % (0.0-1.0); EOSINOPHILS % 0.2 % (0.0-6.0); HEMATOCRIT 31.7 % (38.2-49.6); HEMOGLOBIN 10.2 g/dL (14.0-18.0); LYMPHOCYTES # (AUTO) 0.7 (1.0-3.2); LYMPHOCYTES % 11.6 % (18.0-39.1); MEAN CORPUSCULAR HEMOGLOBIN 28.4 pg (28-32); MEAN CORPUSCULAR HGB CONC 32.2 g/dL (31-35); MEAN CORPUSCULAR VOLUME 88.3 fL (81-99); MONOCYTES # (AUTO) 0.6 (0.2-0.8); MONOCYTES % 9.2 % (4.4-11.3); NEUTROPHILS # (AUTO) 4.9 (2.1-6.9); NEUTROPHILS % 76.1 % (38.7-80.0); PLATELET COUNT 201 x10e3/uL (140-360); RED BLOOD COUNT 3.59 x10e6/uL (4.3-5.7); RED CELL DISTRIBUTION WIDTH 13.7 % (11.7-14.4)
[2020-06-05 05:11] LABS: ANION GAP 13.5 mmol/L (8-16); CALCIUM 8.1 mg/dL (8.4-10.2); CREATININE, SERUM 1.31 mg/dL (0.72-1.25); POTASSIUM 4.5 mmol/L (3.5-5.1)
[2020-06-05] MEDS: INSULIN REGULAR, HUMAN 100 UNIT/1 ML 3ML VIAL SQ SCH ×4 (08:06→20:46)
[2020-06-05] MEDS: DEXAMETHASONE 4 MG TAB PO SCH (08:50)
[2020-06-05] MEDS: HYDRALAZINE HCL 100 MG TABLET PO SCH ×3 (08:50→20:39)
[2020-06-05] MEDS: ASPIRIN 81 MG CHEW TAB PO SCH (08:50)
[2020-06-05] MEDS: DULOXETINE HCL 30 MG DELAYED RELEASE PO SCH (08:50)
[2020-06-05] MEDS: PRASUGREL 10 MG TAB PO SCH (08:50)
[2020-06-05] MEDS: ISOSORBIDE MONONITRATE 30 MG TAB CR PO SCH (08:51)
[2020-06-05] MEDS: ATORVASTATIN 40 MG TAB PO SCH (08:51)
[2020-06-05] MEDS: NIFEDIPINE CR 30 MG TAB PO SCH (08:52)
[2020-06-05] MEDS: PANTOPRAZOLE SOD 40 MG TABEC PO SCH (08:52)
[2020-06-05] MEDS: AZITHROMYCIN 500MG/NS 250 ML 250 ML IV SCH (14:19)
[2020-06-05] MEDS: ENOXAPARIN SOD INJ 40 MG/0.4 ML SYR SC SCH (17:20)
[2020-06-05] MEDS: INSULIN GLARGINE 100 UNITS/ML VIAL SQ SCH (20:46)
[2020-06-06 04:00] VITALS: BP 157/76
[2020-06-06] MEDS: INSULIN REGULAR, HUMAN 100 UNIT/1 ML 3ML VIAL SQ SCH ×4 (07:30→20:57)
[2020-06-06 08:22] VITALS: BP 183/82
[2020-06-06 08:24] VITALS: BP 183/82
[2020-06-06] MEDS: DULOXETINE HCL 30 MG DELAYED RELEASE PO SCH (08:54)
[2020-06-06] MEDS: ASPIRIN 81 MG CHEW TAB PO SCH (08:54)
[2020-06-06] MEDS: PRASUGREL 10 MG TAB PO SCH (08:54)
[2020-06-06] MEDS: DEXAMETHASONE 4 MG TAB PO SCH (08:54)
[2020-06-06] MEDS: ISOSORBIDE MONONITRATE 30 MG TAB CR PO SCH (08:55)
[2020-06-06] MEDS: ATORVASTATIN 40 MG TAB PO SCH (08:55)
[2020-06-06] MEDS: NIFEDIPINE CR 30 MG TAB PO SCH (08:55)
[2020-06-06] MEDS: PANTOPRAZOLE SOD 40 MG TABEC PO SCH (08:55)
[2020-06-06] MEDS: HYDRALAZINE HCL 100 MG TABLET PO SCH ×3 (08:56→20:56)
[2020-06-06 12:17] VITALS: BP 141/74
[2020-06-06] MEDS: AZITHROMYCIN 500MG/NS 250 ML 250 ML IV SCH (14:42)
[2020-06-06] MEDS: ENOXAPARIN SOD INJ 40 MG/0.4 ML SYR SC SCH (16:27)
[2020-06-06 16:39] VITALS: BP 122/41
[2020-06-06 19:47] VITALS: BP 153/79
[2020-06-06] MEDS: INSULIN GLARGINE 100 UNITS/ML VIAL SQ SCH (20:57)
[2020-06-07] VITALS (7 sets, daily range): BP systolic 123–179; BP diastolic 69–86
[2020-06-07] MEDS: INSULIN REGULAR, HUMAN 100 UNIT/1 ML 3ML VIAL SQ SCH ×4 (07:30→21:46)
[2020-06-07] MEDS: DULOXETINE HCL 30 MG DELAYED RELEASE PO SCH (08:50)
[2020-06-07] MEDS: PRASUGREL 10 MG TAB PO SCH (08:50)
[2020-06-07] MEDS: ASPIRIN 81 MG CHEW TAB PO SCH (08:50)
[2020-06-07] MEDS: DEXAMETHASONE 4 MG TAB PO SCH (08:50)
[2020-06-07] MEDS: ISOSORBIDE MONONITRATE 30 MG TAB CR PO SCH (08:51)
[2020-06-07] MEDS: HYDRALAZINE HCL 100 MG TABLET PO SCH ×3 (08:51→21:44)
[2020-06-07] MEDS: NIFEDIPINE CR 30 MG TAB PO SCH (08:52)
[2020-06-07] MEDS: ATORVASTATIN 40 MG TAB PO SCH (08:52)
[2020-06-07] MEDS: PANTOPRAZOLE SOD 40 MG TABEC PO SCH (08:52)
[2020-06-07] MEDS: AZITHROMYCIN 500MG/NS 250 ML 250 ML IV SCH (14:00)
[2020-06-07] MEDS: ENOXAPARIN SOD INJ 40 MG/0.4 ML SYR SC SCH (16:47)
[2020-06-07] MEDS: INSULIN GLARGINE 100 UNITS/ML VIAL SQ SCH (21:47)
[2020-06-08] VITALS (8 sets, daily range): BP systolic 138–187; BP diastolic 70–90
[2020-06-08 06:11] LABS: BASOPHILS % 0.2 % (0.0-1.0); EOSINOPHILS # (AUTO) 0.2 (0.0-0.4); EOSINOPHILS % 2.5 % (0.0-6.0); HEMATOCRIT 33.4 % (38.2-49.6); HEMOGLOBIN 10.9 g/dL (14.0-18.0); LYMPHOCYTES # (AUTO) 0.7 (1.0-3.2); LYMPHOCYTES % 10.8 % (18.0-39.1); MEAN CORPUSCULAR HEMOGLOBIN 28.7 pg (28-32); MEAN CORPUSCULAR HGB CONC 32.6 g/dL (31-35); MEAN CORPUSCULAR VOLUME 87.9 fL (81-99); MONOCYTES # (AUTO) 0.5 (0.2-0.8); MONOCYTES % 7.3 % (4.4-11.3); NEUTROPHILS # (AUTO) 4.8 (2.1-6.9); NEUTROPHILS % 77.1 % (38.7-80.0); PLATELET COUNT 175 x10e3/uL (140-360); RED CELL DISTRIBUTION WIDTH 13.9 % (11.7-14.4)
[2020-06-08 06:40] LABS: ALBUMIN 2.3 g/dL (3.5-5.0); ALBUMIN/GLOBULIN RATIO 0.7 (0.8-2.0); ANION GAP 12.8 mmol/L (8-16); CALCIUM 8.2 mg/dL (8.4-10.2); CREATININE, SERUM 1.26 mg/dL (0.72-1.25); POTASSIUM 3.8 mmol/L (3.5-5.1)
[2020-06-08] MEDS: INSULIN REGULAR, HUMAN 100 UNIT/1 ML 3ML VIAL SQ SCH ×4 (07:30→21:26)
[2020-06-08] MEDS: ISOSORBIDE MONONITRATE 30 MG TAB CR PO SCH (08:54)
[2020-06-08] MEDS: ATORVASTATIN 40 MG TAB PO SCH (08:54)
[2020-06-08] MEDS: PANTOPRAZOLE SOD 40 MG TABEC PO SCH (08:54)
[2020-06-08] MEDS: NIFEDIPINE CR 30 MG TAB PO SCH (08:54)
[2020-06-08] MEDS: HYDRALAZINE HCL 100 MG TABLET PO SCH ×3 (08:54→21:19)
[2020-06-08] MEDS: ASPIRIN 81 MG CHEW TAB PO SCH (08:54)
[2020-06-08] MEDS: DULOXETINE HCL 30 MG DELAYED RELEASE PO SCH (08:54)
[2020-06-08] MEDS: PRASUGREL 10 MG TAB PO SCH (08:54)
[2020-06-08] MEDS: DEXAMETHASONE 4 MG TAB PO SCH (08:54)
[2020-06-08] MEDS: ENOXAPARIN SOD INJ 40 MG/0.4 ML SYR SC SCH (17:35)
[2020-06-08] MEDS: INSULIN GLARGINE 100 UNITS/ML VIAL SQ SCH (21:29)
[2020-06-09] VITALS (9 sets, daily range): BP systolic 142–204; BP diastolic 46–104
[2020-06-09] MEDS: CLONIDINE HCL 0.1 MG TAB PO PRN (04:39)
[2020-06-09] MEDS: INSULIN REGULAR, HUMAN 100 UNIT/1 ML 3ML VIAL SQ SCH ×4 (07:30→21:20)
[2020-06-09] MEDS: ASPIRIN 81 MG CHEW TAB PO SCH (08:50)
[2020-06-09] MEDS: DULOXETINE HCL 30 MG DELAYED RELEASE PO SCH (08:51)
[2020-06-09] MEDS: HYDRALAZINE HCL 100 MG TABLET PO SCH ×3 (08:51→20:34)
[2020-06-09] MEDS: ATORVASTATIN 40 MG TAB PO SCH (08:51)
[2020-06-09] MEDS: PANTOPRAZOLE SOD 40 MG TABEC PO SCH (08:51)
[2020-06-09] MEDS: PRASUGREL 10 MG TAB PO SCH (08:51)
[2020-06-09] MEDS: NIFEDIPINE CR 30 MG TAB PO SCH (08:52)
[2020-06-09] MEDS: ISOSORBIDE MONONITRATE 30 MG TAB CR PO SCH (08:52)
[2020-06-09] MEDS: ENOXAPARIN SOD INJ 40 MG/0.4 ML SYR SC SCH (16:42)
[2020-06-09] MEDS ORDERED: CATAPRES-TTS 31 EA TD ×2 (18:43→19:00)
[2020-06-09] MEDS ORDERED: CLONIDINE HCL 0.3MG/24 HR PATCH TD SCH ×2 (18:45→19:30)
[2020-06-09] MEDS: INSULIN GLARGINE 100 UNITS/ML VIAL SQ SCH (21:19)
[2020-06-10] VITALS: BP 168/83
[2020-06-10 05:31] LABS: BASOPHILS % 0.4 % (0.0-1.0); EOSINOPHILS # (AUTO) 0.1 (0.0-0.4); EOSINOPHILS % 1.9 % (0.0-6.0); HEMATOCRIT 33.9 % (38.2-49.6); HEMOGLOBIN 10.8 g/dL (14.0-18.0); LYMPHOCYTES # (AUTO) 1.2 (1.0-3.2); LYMPHOCYTES % 17.5 % (18.0-39.1); MEAN CORPUSCULAR HEMOGLOBIN 27.6 pg (28-32); MEAN CORPUSCULAR HGB CONC 31.9 g/dL (31-35); MEAN CORPUSCULAR VOLUME 86.7 fL (81-99); MONOCYTES # (AUTO) 0.6 (0.2-0.8); MONOCYTES % 8.8 % (4.4-11.3); NEUTROPHILS # (AUTO) 4.7 (2.1-6.9); NEUTROPHILS % 69.2 % (38.7-80.0); PLATELET COUNT 187 x10e3/uL (140-360); RED BLOOD COUNT 3.91 x10e6/uL (4.3-5.7); RED CELL DISTRIBUTION WIDTH 13.9 % (11.7-14.4)
[2020-06-10 06:00] LABS: ANION GAP 11.8 mmol/L (8-16); BLOOD UREA NITROGEN 26 mg/dL (7-26); BUN/CREATININE RATIO 22 (6-25); CALCIUM 7.9 mg/dL (8.4-10.2); CARBON DIOXIDE 31 mmol/L (22-29); CHLORIDE 99 mmol/L (98-107); CREATININE, SERUM 1.18 mg/dL (0.72-1.25); EST GLOMERULAR FILTRATION RATE > 60 ML/MIN (60-); GLUCOSE 105 mg/dL (74-118); POTASSIUM 3.8 mmol/L (3.5-5.1); SODIUM 138 mmol/L (136-145)
[2020-06-10] MEDS: INSULIN REGULAR, HUMAN 100 UNIT/1 ML 3ML VIAL SQ SCH ×4 (07:30→21:35)
[2020-06-10 08:00] VITALS: BP 172/79
[2020-06-10 08:40] VITALS: BP 168/83
[2020-06-10] MEDS: PANTOPRAZOLE SOD 40 MG TABEC PO SCH (08:58)
[2020-06-10] MEDS: NIFEDIPINE CR 30 MG TAB PO SCH ×2 (08:58→21:34)
[2020-06-10] MEDS: DULOXETINE HCL 30 MG DELAYED RELEASE PO SCH (08:58)
[2020-06-10] MEDS: ASPIRIN 81 MG CHEW TAB PO SCH (08:58)
[2020-06-10] MEDS: ISOSORBIDE MONONITRATE 30 MG TAB CR PO SCH (08:58)
[2020-06-10] MEDS: HYDRALAZINE HCL 100 MG TABLET PO SCH ×3 (08:58→21:34)
[2020-06-10] MEDS: ATORVASTATIN 40 MG TAB PO SCH (08:58)
[2020-06-10] MEDS: PRASUGREL 10 MG TAB PO SCH (08:58)
[2020-06-10 12:00] VITALS: BP 141/74
[2020-06-10] MEDS: CARVEDILOL 3.125 MG TAB PO SCH ×2 (12:16→21:34)
[2020-06-10 16:00] VITALS: BP 152/79
[2020-06-10] MEDS: ENOXAPARIN SOD INJ 40 MG/0.4 ML SYR SC SCH (17:17)
[2020-06-10] MEDS: INSULIN GLARGINE 100 UNITS/ML VIAL SQ SCH (21:36)
[2020-06-11] VITALS (7 sets, daily range): BP systolic 136–167; BP diastolic 74–91
[2020-06-11 05:38] LABS: ANION GAP 12.6 mmol/L (8-16); BLOOD UREA NITROGEN 21 mg/dL (7-26); BUN/CREATININE RATIO 18 (6-25); CARBON DIOXIDE 29 mmol/L (22-29); CHLORIDE 99 mmol/L (98-107); CREATININE, SERUM 1.16 mg/dL (0.72-1.25); EST GLOMERULAR FILTRATION RATE > 60 ML/MIN (60-); GLUCOSE 137 mg/dL (74-118); POTASSIUM 3.6 mmol/L (3.5-5.1); SODIUM 137 mmol/L (136-145)
[2020-06-11] MEDS: PANTOPRAZOLE SOD 40 MG TABEC PO SCH (08:20)
[2020-06-11] MEDS: ATORVASTATIN 40 MG TAB PO SCH (08:20)
[2020-06-11] MEDS: DULOXETINE HCL 30 MG DELAYED RELEASE PO SCH (08:20)
[2020-06-11] MEDS: ASPIRIN 81 MG CHEW TAB PO SCH (08:20)
[2020-06-11] MEDS: PRASUGREL 10 MG TAB PO SCH (08:20)
[2020-06-11] MEDS: CARVEDILOL 3.125 MG TAB PO SCH ×2 (08:21→21:48)
[2020-06-11] MEDS: INSULIN REGULAR, HUMAN 100 UNIT/1 ML 3ML VIAL SQ SCH ×4 (08:23→21:54)
[2020-06-11] MEDS: NIFEDIPINE CR 30 MG TAB PO SCH ×2 (08:28→21:49)
[2020-06-11] MEDS: ISOSORBIDE MONONITRATE 30 MG TAB CR PO SCH (08:28)
[2020-06-11] MEDS: HYDRALAZINE HCL 100 MG TABLET PO SCH ×3 (08:28→21:48)
[2020-06-11] MEDS: ENOXAPARIN SOD INJ 40 MG/0.4 ML SYR SC SCH (17:05)
[2020-06-11] MEDS: INSULIN GLARGINE 100 UNITS/ML VIAL SQ SCH (21:54)
[2020-06-12] VITALS (8 sets, daily range): BP systolic 128–159; BP diastolic 63–80
[2020-06-12] MEDS: INSULIN REGULAR, HUMAN 100 UNIT/1 ML 3ML VIAL SQ SCH ×4 (08:06→21:00)
[2020-06-12] MEDS: HYDRALAZINE HCL 100 MG TABLET PO SCH ×3 (10:14→20:59)
[2020-06-12] MEDS: DULOXETINE HCL 30 MG DELAYED RELEASE PO SCH (10:14)
[2020-06-12] MEDS: CARVEDILOL 3.125 MG TAB PO SCH ×2 (10:14→20:59)
[2020-06-12] MEDS: ASPIRIN 81 MG CHEW TAB PO SCH (10:14)
[2020-06-12] MEDS: PRASUGREL 10 MG TAB PO SCH (10:14)
[2020-06-12] MEDS: PANTOPRAZOLE SOD 40 MG TABEC PO SCH (10:15)
[2020-06-12] MEDS: NIFEDIPINE CR 30 MG TAB PO SCH ×2 (10:15→21:00)
[2020-06-12] MEDS: ISOSORBIDE MONONITRATE 30 MG TAB CR PO SCH (10:15)
[2020-06-12] MEDS: PREDNISONE 20 MG TAB PO SCH (13:03)
[2020-06-12] MEDS: ACETAMINOPHEN/CODEINE 300MG - 30MG TAB PO PRN ×2 (13:04→18:57)
[2020-06-12] MEDS: ENOXAPARIN SOD INJ 40 MG/0.4 ML SYR SC SCH (16:34)
[2020-06-12] MEDS: ATORVASTATIN 40 MG TAB PO SCH (20:59)
[2020-06-12] MEDS: INSULIN GLARGINE 100 UNITS/ML VIAL SQ SCH (21:00)
[2020-06-13] VITALS (8 sets, daily range): BP systolic 105–138; BP diastolic 49–74
[2020-06-13 06:01] LABS: BASOPHILS % 0.4 % (0.0-1.0); EOSINOPHILS % 0.3 % (0.0-6.0); HEMATOCRIT 30.8 % (38.2-49.6); HEMOGLOBIN 9.6 g/dL (14.0-18.0); LYMPHOCYTES # (AUTO) 1.5 (1.0-3.2); LYMPHOCYTES % 18.7 % (18.0-39.1); MEAN CORPUSCULAR HEMOGLOBIN 27.5 pg (28-32); MEAN CORPUSCULAR HGB CONC 31.2 g/dL (31-35); MEAN CORPUSCULAR VOLUME 88.3 fL (81-99); MONOCYTES # (AUTO) 1.1 (0.2-0.8); MONOCYTES % 13.6 % (4.4-11.3); NEUTROPHILS # (AUTO) 5.2 (2.1-6.9); NEUTROPHILS % 66.2 % (38.7-80.0); PLATELET COUNT 184 x10e3/uL (140-360); RED BLOOD COUNT 3.49 x10e6/uL (4.3-5.7); RED CELL DISTRIBUTION WIDTH 14.5 % (11.7-14.4)
[2020-06-13 06:17] LABS: ANION GAP 13.1 mmol/L (8-16); CALCIUM 8.1 mg/dL (8.4-10.2); CREATININE, SERUM 1.43 mg/dL (0.72-1.25); POTASSIUM 4.1 mmol/L (3.5-5.1)
[2020-06-13] MEDS: INSULIN REGULAR, HUMAN 100 UNIT/1 ML 3ML VIAL SQ SCH ×4 (08:15→21:00)
[2020-06-13] MEDS: ASPIRIN 81 MG CHEW TAB PO SCH (08:33)
[2020-06-13] MEDS: HYDRALAZINE HCL 100 MG TABLET PO SCH ×3 (08:34→21:21)
[2020-06-13] MEDS: CARVEDILOL 3.125 MG TAB PO SCH ×2 (08:34→21:21)
[2020-06-13] MEDS: PREDNISONE 20 MG TAB PO SCH (08:34)
[2020-06-13] MEDS: DULOXETINE HCL 30 MG DELAYED RELEASE PO SCH (08:34)
[2020-06-13] MEDS: ISOSORBIDE MONONITRATE 30 MG TAB CR PO SCH (08:34)
[2020-06-13] MEDS: PRASUGREL 10 MG TAB PO SCH (08:34)
[2020-06-13] MEDS: PANTOPRAZOLE SOD 40 MG TABEC PO SCH (08:35)
[2020-06-13] MEDS: NIFEDIPINE CR 30 MG TAB PO SCH ×2 (08:35→21:21)
[2020-06-13] MEDS: ENOXAPARIN SOD INJ 40 MG/0.4 ML SYR SC SCH (16:48)
[2020-06-13] MEDS: INSULIN GLARGINE 100 UNITS/ML VIAL SQ SCH (21:00)
[2020-06-13] MEDS: ATORVASTATIN 40 MG TAB PO SCH (21:21)
[2020-06-14] VITALS: BP 120/55
[2020-06-14 04:00] VITALS: BP 124/63
[2020-06-14 08:30] VITALS: BP 124/63
[2020-06-14] MEDS: INSULIN REGULAR, HUMAN 100 UNIT/1 ML 3ML VIAL SQ SCH ×2 (09:16→12:32)
[2020-06-14] MEDS: PRASUGREL 10 MG TAB PO SCH (09:17)
[2020-06-14] MEDS: ASPIRIN 81 MG CHEW TAB PO SCH (09:17)
[2020-06-14] MEDS: DULOXETINE HCL 30 MG DELAYED RELEASE PO SCH (09:17)
[2020-06-14] MEDS: HYDRALAZINE HCL 100 MG TABLET PO SCH ×2 (09:17→15:45)
[2020-06-14] MEDS: CARVEDILOL 3.125 MG TAB PO SCH (09:17)
[2020-06-14] MEDS: PREDNISONE 20 MG TAB PO SCH (09:18)
[2020-06-14] MEDS: ACETAMINOPHEN/CODEINE 300MG - 30MG TAB PO PRN ×2 (09:18→15:45)
[2020-06-14] MEDS: ISOSORBIDE MONONITRATE 30 MG TAB CR PO SCH (09:18)
[2020-06-14] MEDS: GUAIFENESIN 600MG/DEXTROMETHORPHAN 30MG TABSR PO PRN (09:18)
[2020-06-14] MEDS: PANTOPRAZOLE SOD 40 MG TABEC PO SCH (09:18)
[2020-06-14] MEDS: NIFEDIPINE CR 30 MG TAB PO SCH (09:18)
[2020-06-14 09:23] VITALS: BP 141/66
[2020-06-14 13:13] VITALS: BP 129/58
[2020-06-14] MEDS ORDERED: ALLOPURINOL 300 MG TAB PO SCH (14:15)
[2020-06-14 15:57] VITALS: BP 131/62
== END 2020-06-14 15:57 | disposition home health service (06) | DRG 177 ==
LOC: ER 20:58 → ERHOLD 23:23 → IMCU 05-31 01:53
PROVIDERS: ADMIT Internal Medicine; ATTEND Internal Medicine
PROC: 8E0ZXY6 Isolation (ICD-10-PCS; principal; 2020-05-30)
PROC: 02HV33Z Insertion of Infusion Device into Superior Vena Cava, Percutaneous Approach (ICD-10-PCS; 2020-05-30)
PROC: XW043E5 Introduction of Remdesivir Anti-infective into Central Vein, Percutaneous Approach, New Technology Group 5 (ICD-10-PCS; 2020-05-31)
DX: U07.1 COVID-19 (principal); J12.82 Pneumonia due to coronavirus disease 2019; J96.01 Acute respiratory failure with hypoxia; N17.9 Acute kidney failure, unspecified; D61.818 Other pancytopenia; Z68.42 Body mass index [BMI] 45.0-49.9, adult; E11.9 Type 2 diabetes mellitus without complications; E66.01 Morbid (severe) obesity due to excess calories; I12.9 Hypertensive chronic kidney disease with stage 1 through stage 4 chronic kidney disease, or unspecified chronic kidney disease; N18.30 Chronic kidney disease, stage 3 unspecified; G47.33 Obstructive sleep apnea (adult) (pediatric); D63.1 Anemia in chronic kidney disease; I25.10 Atherosclerotic heart disease of native coronary artery without angina pectoris; E78.5 Hyperlipidemia, unspecified; M10.9 Gout, unspecified; Z95.5 Presence of coronary angioplasty implant and graft; E11.21 Type 2 diabetes mellitus with diabetic nephropathy; D69.59 Other secondary thrombocytopenia
CPT/HCPCS: 36415; 36600; 71045; 80048; 80053; 82550; 82553; 82805; 82948; 83880; 84484; 85025; 93005; 94660; 96374; 97139; 99284; J0456; J0696; J1100; J1650; J1815; J1817; J2405; J7050; J7512; U0002

== ENCOUNTER 2020-06-27 15:01 | Emergency (ER) | payer OTHER ==
[~2020-06-27] VITALS: Ht 170.2 cm; Wt 133.4 kg
[~2020-06-27 15:01] MED LIST changes: +BASAGLAR K100 UNIT/1 SQ; +CATAPRES-TTS 31 EA TD; +CYMBALTA30 MG PO; +HUMALOG100 UNIT/3 SQ
[2020-06-27] MEDS ORDERED: KETOROLAC TROMETHAMINE 30 MG/ML VIAL IV STA (15:19)
[2020-06-27] MEDS ORDERED: ONDANSETRON HCL INJ 2MG/ML 2ML 2 MG/ML VIAL IV STA ×3 (15:19→16:35)
[2020-06-27] MEDS ORDERED: SODIUM CHLORIDE 0.9% 1000ML 1,000 ML IV STA (15:19)
[2020-06-27 15:27] LABS: BASOPHILS % 0.4 % (0.0-1.0); EOSINOPHILS % 0.4 % (0.0-6.0); HEMATOCRIT 34.8 % (38.2-49.6); HEMOGLOBIN 10.9 g/dL (14.0-18.0); LYMPHOCYTES # (AUTO) 1.6 (1.0-3.2); LYMPHOCYTES % 17.8 % (18.0-39.1); MEAN CORPUSCULAR HGB CONC 31.3 g/dL (31-35); MEAN CORPUSCULAR VOLUME 89.5 fL (81-99); MONOCYTES # (AUTO) 0.5 (0.2-0.8); MONOCYTES % 5.3 % (4.4-11.3); NEUTROPHILS # (AUTO) 6.9 (2.1-6.9); NEUTROPHILS % 75.4 % (38.7-80.0); PLATELET COUNT 266 x10e3/uL (140-360); RED BLOOD COUNT 3.89 x10e6/uL (4.3-5.7); RED CELL DISTRIBUTION WIDTH 15.6 % (11.7-14.4)
[2020-06-27] MEDS ORDERED: ASPIRIN 81 MG CHEW TAB PO ONE (15:30)
[2020-06-27 15:33] LABS: CLARITY,URINE CLEAR (CLEAR); COLOR,URINE YELLOW (YELLOW); KETONES,URINE NEGATIVE (NEGATIVE); LEUKOCYTE ESTERASE ,URINE NEGATIVE (NEGATIVE); NITRITE,URINE NEGATIVE (NEGATIVE); PROTEIN,URINE DIPSTICK 2+ (NEGATIVE); URINE UROBILINOGEN 1 mg/dL (0.2 - 1)
[2020-06-27 15:46] LABS: ALBUMIN 3.3 g/dL (3.5-5.0); ANION GAP 14.8 mmol/L (8-16); CALCIUM 8.3 mg/dL (8.4-10.2); CREATININE, SERUM 1.83 mg/dL (0.72-1.25); POTASSIUM 3.8 mmol/L (3.5-5.1)
[2020-06-27 15:53] LABS: CREATINE KINASE MB 1.1 ng/mL (0-5.0)
[2020-06-27 16:06] LABS: BACTERIA,URINE RARE /HPF; RBC,URINE 0-5 /HPF (0-5); WBC,URINE (MAN) 0-5 /HPF (0-5)
[2020-06-27 16:07] LABS: EPITHELIAL CELLS,URINE FEW /LPF
[2020-06-27] MEDS ORDERED: MORPHINE SULFATE INJ 4 MG/ML INJ 1ML IV STA (16:35)
[2020-06-27] MEDS ORDERED: MORPHINE SULFATE INJ 4 MG/ML INJ 1ML IV PRN (16:45)
== END 2020-06-27 17:36 | disposition home or self-care (01) ==
LOC: ER 15:42
DX: R10.32 Left lower quadrant pain (principal); I10 Essential (primary) hypertension; E11.65 Type 2 diabetes mellitus with hyperglycemia; K76.9 Liver disease, unspecified; K21.9 Gastro-esophageal reflux disease without esophagitis; F32.9 Major depressive disorder, single episode, unspecified; I25.2 Old myocardial infarction; Z95.5 Presence of coronary angioplasty implant and graft
CPT/HCPCS: 36415; 74176; 80053; 81001; 82550; 82553; 84484; 85025; 99284; J1885; J2270; J2405; J7030

== ENCOUNTER 2020-10-19 08:43 | Emergency (ER) | payer OTHER ==
[~2020-10-19] VITALS: Ht 170.2 cm; Wt 133.4 kg
[2020-10-19 09:18] LABS: BASOPHILS # (AUTO) 0.1 (0.0-0.1); BASOPHILS % 0.9 % (0.0-1.0); EOSINOPHILS # (AUTO) 0.2 (0.0-0.4); EOSINOPHILS % 2.7 % (0.0-6.0); HEMATOCRIT 35.1 % (38.2-49.6); HEMOGLOBIN 11.4 g/dL (14.0-18.0); LYMPHOCYTES # (AUTO) 1.5 (1.0-3.2); LYMPHOCYTES % 22.7 % (18.0-39.1); MEAN CORPUSCULAR HEMOGLOBIN 28.4 pg (28-32); MEAN CORPUSCULAR HGB CONC 32.5 g/dL (31-35); MEAN CORPUSCULAR VOLUME 87.5 fL (81-99); MONOCYTES # (AUTO) 0.6 (0.2-0.8); MONOCYTES % 8.8 % (4.4-11.3); NEUTROPHILS # (AUTO) 4.3 (2.1-6.9); NEUTROPHILS % 64.5 % (38.7-80.0); PLATELET COUNT 168 x10e3/uL (140-360); RED BLOOD COUNT 4.01 x10e6/uL (4.3-5.7); RED CELL DISTRIBUTION WIDTH 15.7 % (11.7-14.4)
[2020-10-19] MEDS ORDERED: ASPIRIN 325 MG TAB PO ONE (10:00)
[2020-10-19 10:05] LABS: ALBUMIN 3.7 g/dL (3.5-5.0); ALBUMIN/GLOBULIN RATIO 1.3 (0.8-2.0); CALCIUM 8.9 mg/dL (8.4-10.2); CREATININE, SERUM 2.23 mg/dL (0.72-1.25)
[2020-10-19] MEDS ORDERED: ASPIRIN 81 MG CHEW TAB ONE (10:14)
[2020-10-19 12:27] LABS: AMPHETAMINES SCREEN,URINE NEGATIVE (NEGATIVE); BENZODIAZEPINES SCREEN,URINE NEGATIVE (NEGATIVE); PHENCYCLIDINE SCREEN,URINE NEGATIVE (NEGATIVE)
[2020-10-19 12:34] LABS: CLARITY,URINE CLEAR (CLEAR); COLOR,URINE YELLOW (YELLOW); KETONES,URINE NEGATIVE (NEGATIVE); LEUKOCYTE ESTERASE ,URINE NEGATIVE (NEGATIVE); NITRITE,URINE NEGATIVE (NEGATIVE); PROTEIN,URINE DIPSTICK >=300 (NEGATIVE); URINE UROBILINOGEN 0.2 mg/dL (0.2 - 1)
[2020-10-19 12:36] LABS: MUCUS,URINE FEW (RARE); RBC,URINE 0-5 /HPF (0-5)
[2020-10-19 13:27] VITALS: BP 164/90
== END 2020-10-19 13:30 | disposition home or self-care (01) ==
LOC: ER 09:00
DX: R41.0 Disorientation, unspecified (principal); G47.33 Obstructive sleep apnea (adult) (pediatric); E66.01 Morbid (severe) obesity due to excess calories; Z20.822 Contact with and (suspected) exposure to COVID-19; R94.31 Abnormal electrocardiogram [ECG] [EKG]
CPT/HCPCS: 36415; 70450; 71045; 80053; 80307; 80320; 81001; 82140; 82948; 84484; 85025; 93005; 99284; U0002

== ENCOUNTER 2021-07-15 13:46 | Inpatient (IN) | payer BC, OTHER ==
[~2021-07-15] VITALS: Ht 170.2 cm; Wt 122.9 kg
[2021-07-15] MEDS ORDERED: SODIUM CHLORIDE 0.9% 1000ML 1,000 ML IV ONE ×2 (14:00→16:45)
[2021-07-15 14:17] LABS: BASOPHILS % 0.5 % (0.0-1.0); EOSINOPHILS # (AUTO) 0.2 (0.0-0.4); EOSINOPHILS % 2.2 % (0.0-6.0); HEMATOCRIT 41.7 % (38.2-49.6); HEMOGLOBIN 13.6 g/dL (14.0-18.0); LYMPHOCYTES # (AUTO) 1.4 (1.0-3.2); LYMPHOCYTES % 18.8 % (18.0-39.1); MEAN CORPUSCULAR HGB CONC 32.6 g/dL (31-35); MONOCYTES # (AUTO) 0.9 (0.2-0.8); MONOCYTES % 11.5 % (4.4-11.3); NEUTROPHILS # (AUTO) 5.1 (2.1-6.9); NEUTROPHILS % 66.1 % (38.7-80.0); PLATELET COUNT 280 x10e3/uL (140-360); RED BLOOD COUNT 4.85 x10e6/uL (4.3-5.7); RED CELL DISTRIBUTION WIDTH 14.9 % (11.7-14.4)
[2021-07-15 14:37] LABS: ALBUMIN 3.1 g/dL (3.5-5.0); ALBUMIN/GLOBULIN RATIO 0.8 (0.8-2.0); ANION GAP 18.3 mmol/L (8-16); CALCIUM 8.8 mg/dL (8.4-10.2); CREATININE, SERUM 4.99 mg/dL (0.72-1.25); MAGNESIUM 2.1 MG/DL (1.3-2.1); POTASSIUM 3.3 mmol/L (3.5-5.1)
[2021-07-15 14:39] LABS: CLARITY,URINE CLOUDY (CLEAR); COLOR,URINE YELLOW (YELLOW); KETONES,URINE NEGATIVE (NEGATIVE); LEUKOCYTE ESTERASE ,URINE NEGATIVE (NEGATIVE); NITRITE,URINE NEGATIVE (NEGATIVE); PROTEIN,URINE DIPSTICK >=300 (NEGATIVE); URINE UROBILINOGEN 0.2 mg/dL (0.2 - 1)
[2021-07-15 14:44] LABS: CREATINE KINASE MB 0.7 ng/mL (0-5.0)
[2021-07-15 14:57] LABS: OCCULT BLOOD STOOL NEGATIVE (NEGATIVE)
[2021-07-15 14:59] LABS: BACTERIA,URINE MANY /HPF; EPITHELIAL CELLS,URINE FEW /LPF; RBC,URINE 0-5 /HPF (0-5)
[2021-07-15 15:00] LABS: CALCIUM OXALATE CRYSTALS,UR FEW (FEW)
[2021-07-15 15:07] LABS: WBC,FECAL (FECAL LACTOFERRIN) POSITIVE (NEGATIVE)
[2021-07-15] MEDS: METOCLOPRAMIDE HCL 10 MG/2ML VIAL IV PRN (15:11)
[2021-07-15 15:42] LABS: C DIFFICILE TOXIN A&B AMP PROB NEGATIVE (NEGATIVE)
[2021-07-15] MEDS: FAMOTIDINE 20 MG TAB PO SCH (16:10)
[2021-07-15] MEDS ORDERED: ONDANSETRON HCL INJ 2MG/ML 2ML 2 MG/ML VIAL IV PRN (17:00)
[2021-07-15] MEDS: SODIUM CHLORIDE 0.9% 1000ML 1,000 ML IV SCH ×2 (17:23→19:37)
[2021-07-15] MEDS ORDERED: DEXTROSE 50% SYRINGE 50 ML IV PRN (19:15)
[2021-07-15] MEDS ORDERED: POTASSIUM CHLORIDE 10MEQ EA PO ONE (19:40)
[2021-07-15 20:00] VITALS: BP 128/58
[2021-07-15] MEDS: INSULIN REGULAR, HUMAN 100 UNIT/1 ML SQ SCH (20:15)
[2021-07-15] MEDS: HYDRALAZINE HCL 100 MG TABLET PO SCH (20:16)
[2021-07-15 21:15] LABS: ANION GAP 19.4 mmol/L (8-16); CALCIUM 8.5 mg/dL (8.4-10.2); CREATININE, SERUM 4.75 mg/dL (0.72-1.25); POTASSIUM 3.4 mmol/L (3.5-5.1)
[2021-07-15 21:16] LABS: CREATINE KINASE MB 1.1 ng/mL (0-5.0)
[2021-07-15 21:32] VITALS: BP 128/58
[2021-07-16] VITALS (8 sets, daily range): BP systolic 125–181; BP diastolic 61–79
[2021-07-16 06:20] LABS: BASOPHILS % 0.4 % (0.0-1.0); EOSINOPHILS # (AUTO) 0.2 (0.0-0.4); EOSINOPHILS % 2.8 % (0.0-6.0); HEMATOCRIT 34.2 % (38.2-49.6); HEMOGLOBIN 10.9 g/dL (14.0-18.0); LYMPHOCYTES # (AUTO) 1.7 (1.0-3.2); LYMPHOCYTES % 31.2 % (18.0-39.1); MEAN CORPUSCULAR HEMOGLOBIN 27.9 pg (28-32); MEAN CORPUSCULAR HGB CONC 31.9 g/dL (31-35); MEAN CORPUSCULAR VOLUME 87.5 fL (81-99); MONOCYTES # (AUTO) 0.8 (0.2-0.8); MONOCYTES % 14.6 % (4.4-11.3); NEUTROPHILS # (AUTO) 2.7 (2.1-6.9); NEUTROPHILS % 49.5 % (38.7-80.0); PLATELET COUNT 175 x10e3/uL (140-360); RED BLOOD COUNT 3.91 x10e6/uL (4.3-5.7); RED CELL DISTRIBUTION WIDTH 14.9 % (11.7-14.4)
[2021-07-16 06:56] LABS: ANION GAP 17.5 mmol/L (8-16); CALCIUM 8.1 mg/dL (8.4-10.2); CREATININE, SERUM 4.3 mg/dL (0.72-1.25); MAGNESIUM 2.4 MG/DL (1.3-2.1); POTASSIUM 3.5 mmol/L (3.5-5.1)
[2021-07-16 07:05] LABS: CREATINE KINASE MB 1.2 ng/mL (0-5.0)
[2021-07-16] MEDS: INSULIN REGULAR, HUMAN 100 UNIT/1 ML SQ SCH ×4 (07:30→21:18)
[2021-07-16] MEDS ORDERED: PANTOPRAZOLE SOD 40 MG TABEC PO SCH (09:00)
[2021-07-16] MEDS: ASPIRIN 81 MG CHEW TAB PO SCH (09:28)
[2021-07-16] MEDS: PRASUGREL 10 MG TAB PO SCH (09:28)
[2021-07-16] MEDS: ATORVASTATIN 20 MG TAB PO SCH (09:28)
[2021-07-16] MEDS: SODIUM CHLORIDE 0.9% 1000ML 1,000 ML IV SCH (09:28)
[2021-07-16] MEDS: FAMOTIDINE 20 MG TAB PO SCH ×2 (09:28→17:10)
[2021-07-16] MEDS: HYDRALAZINE HCL 100 MG TABLET PO SCH ×3 (09:28→21:18)
[2021-07-16] MEDS ORDERED: CLONIDINE HCL 0.3MG/24 HR PATCH TD SCH (14:30)
[2021-07-16] MEDS: LACTATED RINGER'S 1,000 ML INJ SCH (15:33)
[2021-07-16] MEDS: LABETALOL HCL 200 MG TAB PO SCH (17:09)
[2021-07-16] MEDS: HEPARIN SOD (PORCINE) 5,000 UNIT/ML VIAL SC SCH (21:18)
[2021-07-17] VITALS (9 sets, daily range): BP systolic 100–184; BP diastolic 38–93
[2021-07-17] MEDS: LACTATED RINGER'S 1,000 ML INJ SCH ×3 (00:22→17:10)
[2021-07-17 00:45] LABS: % IRON SATURATION 20 % (15-50); IRON 54 ug/dL (65-175); TOTAL IRON BINDING CAPACITY 269 ug/dL (261-478); TRANSFERRIN 192 mg/dL (174-364)
[2021-07-17] MEDS: LABETALOL HCL 200 MG TAB PO SCH ×2 (03:00→13:59)
[2021-07-17 06:11] LABS: BASOPHILS % 0.2 % (0.0-1.0); EOSINOPHILS # (AUTO) 0.1 (0.0-0.4); EOSINOPHILS % 2.7 % (0.0-6.0); HEMATOCRIT 32.4 % (38.2-49.6); HEMOGLOBIN 10.4 g/dL (14.0-18.0); LYMPHOCYTES # (AUTO) 1.4 (1.0-3.2); LYMPHOCYTES % 31.7 % (18.0-39.1); MEAN CORPUSCULAR HGB CONC 32.1 g/dL (31-35); MEAN CORPUSCULAR VOLUME 87.1 fL (81-99); MONOCYTES # (AUTO) 0.6 (0.2-0.8); MONOCYTES % 12.7 % (4.4-11.3); NEUTROPHILS # (AUTO) 2.3 (2.1-6.9); PLATELET COUNT 129 x10e3/uL (140-360); RED BLOOD COUNT 3.72 x10e6/uL (4.3-5.7); RED CELL DISTRIBUTION WIDTH 14.9 % (11.7-14.4)
[2021-07-17 06:45] LABS: ALBUMIN 2.6 g/dL (3.5-5.0); ANION GAP 15.4 mmol/L (8-16); CREATININE, SERUM 3.36 mg/dL (0.72-1.25); POTASSIUM 3.4 mmol/L (3.5-5.1)
[2021-07-17] MEDS ORDERED: POTASSIUM CHLORIDE 10MEQ EA PO ONE (07:45)
[2021-07-17] MEDS: DULOXETINE HCL 30 MG DELAYED RELEASE PO SCH (09:05)
[2021-07-17] MEDS: NIFEDIPINE CR 30 MG TAB PO SCH (09:05)
[2021-07-17] MEDS: ASPIRIN 81 MG CHEW TAB PO SCH (09:05)
[2021-07-17] MEDS: ISOSORBIDE MONONITRATE 30 MG TAB CR PO SCH (09:05)
[2021-07-17] MEDS: ATORVASTATIN 20 MG TAB PO SCH (09:05)
[2021-07-17] MEDS: LOSARTAN POTASSIUM 25 MG TAB PO SCH (09:05)
[2021-07-17] MEDS: HYDRALAZINE HCL 100 MG TABLET PO SCH ×3 (09:05→22:12)
[2021-07-17] MEDS: PRASUGREL 10 MG TAB PO SCH (09:05)
[2021-07-17] MEDS: HEPARIN SOD (PORCINE) 5,000 UNIT/ML VIAL SC SCH ×2 (09:06→22:13)
[2021-07-17] MEDS: FAMOTIDINE 20 MG TAB PO SCH ×2 (09:06→15:52)
[2021-07-17] MEDS: INSULIN REGULAR, HUMAN 100 UNIT/1 ML SQ SCH ×4 (09:10→22:14)
[2021-07-18] VITALS: BP 116/56
[2021-07-18] MEDS: LACTATED RINGER'S 1,000 ML INJ SCH ×2 (00:03→18:00)
[2021-07-18] MEDS: LABETALOL HCL 200 MG TAB PO SCH ×2 (01:42→12:53)
[2021-07-18] MEDS: ACETAMINOPHEN 325 MG TAB PO PRN ×2 (03:03→20:59)
[2021-07-18 04:00] VITALS: BP 120/51
[2021-07-18 06:34] LABS: ANION GAP 11.3 mmol/L (8-16); CALCIUM 7.8 mg/dL (8.4-10.2); CREATININE, SERUM 2.9 mg/dL (0.72-1.25); POTASSIUM 3.3 mmol/L (3.5-5.1)
[2021-07-18] MEDS: INSULIN REGULAR, HUMAN 100 UNIT/1 ML SQ SCH ×4 (07:30→20:40)
[2021-07-18 08:00] VITALS: BP_SYST 108; BP_SYST 124; BP_DIAS 51; BP_DIAS 55
[2021-07-18] MEDS: ASPIRIN 81 MG CHEW TAB PO SCH (08:28)
[2021-07-18] MEDS: CYANOCOBALAMIN INJ 1,000 MCG/ML VIAL IM SCH (08:28)
[2021-07-18] MEDS: DULOXETINE HCL 30 MG DELAYED RELEASE PO SCH (08:28)
[2021-07-18] MEDS: FAMOTIDINE 20 MG TAB PO SCH ×2 (08:28→15:40)
[2021-07-18] MEDS: LOSARTAN POTASSIUM 25 MG TAB PO SCH (08:28)
[2021-07-18] MEDS: NIFEDIPINE CR 30 MG TAB PO SCH (08:29)
[2021-07-18] MEDS: ISOSORBIDE MONONITRATE 30 MG TAB CR PO SCH (08:29)
[2021-07-18] MEDS: HYDRALAZINE HCL 100 MG TABLET PO SCH ×3 (08:31→19:48)
[2021-07-18] MEDS: PRASUGREL 10 MG TAB PO SCH (08:31)
[2021-07-18] MEDS: ATORVASTATIN 20 MG TAB PO SCH (08:31)
[2021-07-18 08:39] VITALS: BP 124/55
[2021-07-18] MEDS: HEPARIN SOD (PORCINE) 5,000 UNIT/ML VIAL SC SCH ×2 (09:00→20:40)
[2021-07-18] MEDS: IRON SUCROSE 100 MG in SODIUM CHLORIDE 0.9% 100 ML 100 ML IV SCH (10:04)
[2021-07-18 11:04] LABS: BASOPHILS % 0.2 % (0.0-1.0); EOSINOPHILS # (AUTO) 0.1 (0.0-0.4); EOSINOPHILS % 1.8 % (0.0-6.0); HEMOGLOBIN 9.3 g/dL (14.0-18.0); LYMPHOCYTES # (AUTO) 1.6 (1.0-3.2); LYMPHOCYTES % 26.8 % (18.0-39.1); MEAN CORPUSCULAR HEMOGLOBIN 28.1 pg (28-32); MEAN CORPUSCULAR HGB CONC 32.1 g/dL (31-35); MEAN CORPUSCULAR VOLUME 87.6 fL (81-99); MONOCYTES # (AUTO) 0.5 (0.2-0.8); MONOCYTES % 8.2 % (4.4-11.3); NEUTROPHILS # (AUTO) 3.8 (2.1-6.9); NEUTROPHILS % 62.5 % (38.7-80.0); PLATELET COUNT 136 x10e3/uL (140-360); RED BLOOD COUNT 3.31 x10e6/uL (4.3-5.7); RED CELL DISTRIBUTION WIDTH 15.2 % (11.7-14.4)
[2021-07-18] MEDS ORDERED: POTASSIUM CHLORIDE 10MEQ EA PO ONE (11:15)
[2021-07-18] MEDS ORDERED: POTASSIUM CHLORIDE 20 MEQ TAB CR PO ONE (14:15)
[2021-07-18 19:54] VITALS: BP 101/57
[2021-07-18 20:10] VITALS: BP 101/57
[2021-07-18] MEDS: METOCLOPRAMIDE HCL 10 MG/2ML VIAL IV PRN (20:59)
[2021-07-19 00:21] VITALS: BP 121/50
[2021-07-19] MEDS: LABETALOL HCL 200 MG TAB PO SCH ×2 (01:31→13:00)
[2021-07-19 05:20] VITALS: BP 131/56
[2021-07-19] MEDS: LACTATED RINGER'S 1,000 ML INJ SCH (05:22)
[2021-07-19 05:44] LABS: BASOPHILS % 0.2 % (0.0-1.0); EOSINOPHILS # (AUTO) 0.1 (0.0-0.4); EOSINOPHILS % 1.5 % (0.0-6.0); HEMATOCRIT 29.6 % (38.2-49.6); HEMOGLOBIN 9.5 g/dL (14.0-18.0); LYMPHOCYTES # (AUTO) 1.6 (1.0-3.2); LYMPHOCYTES % 29.4 % (18.0-39.1); MEAN CORPUSCULAR HEMOGLOBIN 27.9 pg (28-32); MEAN CORPUSCULAR HGB CONC 32.1 g/dL (31-35); MEAN CORPUSCULAR VOLUME 86.8 fL (81-99); MONOCYTES # (AUTO) 0.5 (0.2-0.8); MONOCYTES % 8.2 % (4.4-11.3); NEUTROPHILS # (AUTO) 3.3 (2.1-6.9); NEUTROPHILS % 60.2 % (38.7-80.0); PLATELET COUNT 120 x10e3/uL (140-360); RED BLOOD COUNT 3.41 x10e6/uL (4.3-5.7); RED CELL DISTRIBUTION WIDTH 15.3 % (11.7-14.4)
[2021-07-19 06:16] LABS: ANION GAP 10.8 mmol/L (8-16); CALCIUM 8.2 mg/dL (8.4-10.2); CREATININE, SERUM 2.44 mg/dL (0.72-1.25); POTASSIUM 3.8 mmol/L (3.5-5.1)
[2021-07-19] MEDS: INSULIN REGULAR, HUMAN 100 UNIT/1 ML SQ SCH ×4 (07:30→22:00)
[2021-07-19 07:56] VITALS: BP 142/66
[2021-07-19] MEDS: IRON SUCROSE 100 MG in SODIUM CHLORIDE 0.9% 100 ML 100 ML IV SCH (09:43)
[2021-07-19] MEDS: FAMOTIDINE 20 MG TAB PO SCH ×2 (09:43→16:11)
[2021-07-19] MEDS: LOSARTAN POTASSIUM 25 MG TAB PO SCH (09:43)
[2021-07-19] MEDS: CYANOCOBALAMIN INJ 1,000 MCG/ML VIAL IM SCH (09:43)
[2021-07-19] MEDS: ASPIRIN 81 MG CHEW TAB PO SCH (09:43)
[2021-07-19 09:44] LABS: BAND NEUTROPHILS % (MANUAL) 2 %; EOSINOPHILS % (MANUAL) 1 % (0-7); LYMPHOCYTES % (MANUAL) 24 % (19-48); MONOCYTES % (MANUAL) 2 % (3.4-9.0); MYELOCYTES % (MANUAL) 1 % (0-0); NEUTROPHILS % (MANUAL) 70 % (40-74)
[2021-07-19] MEDS: ATORVASTATIN 20 MG TAB PO SCH (09:44)
[2021-07-19] MEDS: NIFEDIPINE CR 30 MG TAB PO SCH (09:44)
[2021-07-19] MEDS: PRASUGREL 10 MG TAB PO SCH (09:44)
[2021-07-19] MEDS: ISOSORBIDE MONONITRATE 30 MG TAB CR PO SCH (09:44)
[2021-07-19] MEDS: ALLOPURINOL 300 MG TAB PO SCH (09:44)
[2021-07-19] MEDS: HYDRALAZINE HCL 100 MG TABLET PO SCH ×3 (09:44→21:00)
[2021-07-19] MEDS: DULOXETINE HCL 30 MG DELAYED RELEASE PO SCH (09:44)
[2021-07-19 09:45] LABS: PLATELET ESTIMATE SLIGHTLY DECREASED; PLATELET MORPHOLOGY COMMENT NORMAL; RBC MORPHOLOGY COMMENT NORMAL
[2021-07-19] MEDS: HEPARIN SOD (PORCINE) 5,000 UNIT/ML VIAL SC SCH ×2 (09:50→21:00)
[2021-07-19] MEDS: SODIUM BICARBONATE 650 MG TAB PO SCH (16:11)
[2021-07-19 19:55] VITALS: BP 114/52
[2021-07-19 21:00] VITALS: BP 114/52
[2021-07-19 23:56] VITALS: BP 130/61
[2021-07-20] MEDS: LABETALOL HCL 200 MG TAB PO SCH (01:10)
[2021-07-20 04:00] VITALS: BP 140/62
[2021-07-20 06:15] LABS: ALBUMIN 2.7 g/dL (3.5-5.0); ANION GAP 11.8 mmol/L (8-16); CALCIUM 8.2 mg/dL (8.4-10.2); CREATININE, SERUM 2.49 mg/dL (0.72-1.25); POTASSIUM 3.8 mmol/L (3.5-5.1)
[2021-07-20] MEDS: FAMOTIDINE 20 MG TAB PO SCH (07:30)
[2021-07-20] MEDS: INSULIN REGULAR, HUMAN 100 UNIT/1 ML SQ SCH ×2 (07:30→11:50)
[2021-07-20 08:00] VITALS: BP 140/62
[2021-07-20 08:12] VITALS: BP 145/68
[2021-07-20] MEDS: ASPIRIN 81 MG CHEW TAB PO SCH (09:16)
[2021-07-20] MEDS: IRON SUCROSE 100 MG in SODIUM CHLORIDE 0.9% 100 ML 100 ML IV SCH (09:16)
[2021-07-20] MEDS: LOSARTAN POTASSIUM 25 MG TAB PO SCH (09:16)
[2021-07-20] MEDS: CYANOCOBALAMIN INJ 1,000 MCG/ML VIAL IM SCH (09:16)
[2021-07-20] MEDS: ISOSORBIDE MONONITRATE 30 MG TAB CR PO SCH (09:17)
[2021-07-20] MEDS: PRASUGREL 10 MG TAB PO SCH (09:17)
[2021-07-20] MEDS: ATORVASTATIN 20 MG TAB PO SCH (09:17)
[2021-07-20] MEDS: HYDRALAZINE HCL 100 MG TABLET PO SCH (09:17)
[2021-07-20] MEDS: DULOXETINE HCL 30 MG DELAYED RELEASE PO SCH (09:17)
[2021-07-20] MEDS: SODIUM BICARBONATE 650 MG TAB PO SCH (09:18)
[2021-07-20] MEDS: NIFEDIPINE CR 30 MG TAB PO SCH (09:18)
[2021-07-20] MEDS: ALLOPURINOL 300 MG TAB PO SCH (09:18)
[2021-07-20] MEDS: HEPARIN SOD (PORCINE) 5,000 UNIT/ML VIAL SC SCH (09:19)
[2021-07-20] MEDS ORDERED: LABETALOL HCL 200 MG TAB PO SCH (10:00)
[2021-07-20 11:41] VITALS: BP 138/65
== END 2021-07-20 15:12 | disposition home or self-care (01) | DRG 683 ==
LOC: ER 14:00 → ERHOLD 17:00 → MED/SURG2 18:26
PROVIDERS: ADMIT Internal Medicine; ATTEND Internal Medicine
DX: N17.9 Acute kidney failure, unspecified (principal); Z68.41 Body mass index [BMI] 40.0-44.9, adult; I12.9 Hypertensive chronic kidney disease with stage 1 through stage 4 chronic kidney disease, or unspecified chronic kidney disease; N18.4 Chronic kidney disease, stage 4 (severe); E11.22 Type 2 diabetes mellitus with diabetic chronic kidney disease; Z79.899 Other long term (current) drug therapy; E78.00 Pure hypercholesterolemia, unspecified; M10.9 Gout, unspecified; K21.9 Gastro-esophageal reflux disease without esophagitis; D69.6 Thrombocytopenia, unspecified; N28.89 Other specified disorders of kidney and ureter; E86.0 Dehydration; Z85.828 Personal history of other malignant neoplasm of skin; E66.01 Morbid (severe) obesity due to excess calories; I25.2 Old myocardial infarction
CPT/HCPCS: 36415; 74176; 76770; 80048; 80053; 81001; 82150; 82270; 82550; 82553; 82607; 82746; 82948; 83540; 83630; 83690; 83735; 83993; 84466; 84484; 85025; 85045; 87045; 87177; 87493; 94799; 96372; 99284; J1644; J1756; J1817; J2405; J2765; J3420; J7030; J7121; U0002

== ENCOUNTER 2021-09-17 13:57 | Inpatient (IN) | payer BC, OTHER ==
[~2021-09-17] VITALS: Ht 170.2 cm; Wt 127.5 kg
[~2021-09-17 13:57] MED LIST changes: +ACETAMINOPHEN500 MG PO; +PLAVIX75 MG PO; +TRICOR145 MG PO; +ULTRAM50 MG PO
[2021-09-17] MEDS ORDERED: ASPIRIN 81 MG CHEW TAB PO STA (14:04)
[2021-09-17] MEDS ORDERED: Morphine 4mg Syringe 4 MG/ML INJ IV ONE (14:15)
[2021-09-17] MEDS ORDERED: NITROGLYCERIN 0.4 MG SUBL SL ONE (14:15)
[2021-09-17] MEDS ORDERED: HYDRALAZINE HCL 20 MG/ML VIAL IV ONE (14:15)
[2021-09-17] MEDS ORDERED: Morphine 4mg Syringe 4 MG/ML INJ ONE (14:27)
[2021-09-17] MEDS ORDERED: ASPIRIN 81 MG ENTERIC COATED PO ONE (14:27)
[2021-09-17] MEDS ORDERED: ONDANSETRON HCL INJ 2MG/ML 2ML 2 MG/ML VIAL ONE (14:27)
[2021-09-17 14:28] LABS: BASOPHILS % 0.5 % (0.0-1.0); EOSINOPHILS # (AUTO) 0.1 (0.0-0.4); EOSINOPHILS % 1.2 % (0.0-6.0); HEMATOCRIT 31.7 % (38.2-49.6); HEMOGLOBIN 9.6 g/dL (14.0-18.0); LYMPHOCYTES # (AUTO) 1.4 (1.0-3.2); LYMPHOCYTES % 18.8 % (18.0-39.1); MEAN CORPUSCULAR HEMOGLOBIN 27.1 pg (28-32); MEAN CORPUSCULAR HGB CONC 30.3 g/dL (31-35); MEAN CORPUSCULAR VOLUME 89.5 fL (81-99); MONOCYTES # (AUTO) 0.5 (0.2-0.8); MONOCYTES % 6.4 % (4.4-11.3); NEUTROPHILS # (AUTO) 5.3 (2.1-6.9); NEUTROPHILS % 72.7 % (38.7-80.0); PLATELET COUNT 189 x10e3/uL (140-360); RED BLOOD COUNT 3.54 x10e6/uL (4.3-5.7); RED CELL DISTRIBUTION WIDTH 14.7 % (11.7-14.4)
[2021-09-17 14:37] LABS: INR 1.04; PROTHROMBIN TIME 14.5 seconds (11.9-14.5)
[2021-09-17 14:38] LABS: PARTIAL THROMBOPLASTIN TIME 25.7 seconds (23.8-35.5)
[2021-09-17 14:48] LABS: ANION GAP 13.8 mmol/L (8-16); CALCIUM 8.1 mg/dL (8.4-10.2); CREATININE, SERUM 2.46 mg/dL (0.72-1.25); POTASSIUM 3.8 mmol/L (3.5-5.1)
[2021-09-17 14:54] LABS: CREATINE KINASE MB 2.2 ng/mL (0-5.0)
[2021-09-17] MEDS ORDERED: ONDANSETRON HCL INJ 2MG/ML 2ML 2 MG/ML VIAL IV PRN (15:15)
[2021-09-17] MEDS ORDERED: Morphine 4mg Syringe 4 MG/ML INJ IV PRN (15:15)
[2021-09-17] MEDS ORDERED: SODIUM CHLORIDE 0.9% 1000ML 1,000 ML IV SCH (15:15)
[2021-09-17 16:05] VITALS: BP 175/70
[2021-09-17 16:30] VITALS: BP 175/70
[2021-09-17] MEDS ORDERED: ACETAMINOPHEN 325 MG TAB PO PRN (17:15)
[2021-09-17] MEDS: HYDRALAZINE HCL 20 MG/ML VIAL IV PRN (17:31)
[2021-09-17] MEDS ORDERED: CARVEDILOL 12.5 MG TAB PO ONE (18:15)
[2021-09-17] MEDS: CLONIDINE HCL 0.3MG/24 HR PATCH TD SCH (18:30)
[2021-09-17 20:00] VITALS: BP 184/75
[2021-09-17] MEDS: HYDRALAZINE HCL 25 MG TAB PO SCH (20:50)
[2021-09-17] MEDS: ISOSORBIDE DINITRATE 20 MG TAB PO SCH (20:51)
[2021-09-17 21:00] VITALS: BP 184/75
[2021-09-17] MEDS ORDERED: ENOXAPARIN INJ 80 MG/0.8 ML SYR SC STA (21:04)
[2021-09-17 23:03] LABS: CREATINE KINASE MB 1.8 ng/mL (0-5.0)
[2021-09-18] VITALS (9 sets, daily range): BP systolic 127–199; BP diastolic 60–85
[2021-09-18] MEDS: HYDRALAZINE HCL 20 MG/ML VIAL IV PRN ×2 (03:40→10:15)
[2021-09-18 04:32] LABS: CLARITY,URINE CLEAR (CLEAR); COLOR,URINE YELLOW (YELLOW); KETONES,URINE NEGATIVE (NEGATIVE); LEUKOCYTE ESTERASE ,URINE NEGATIVE (NEGATIVE); NITRITE,URINE NEGATIVE (NEGATIVE); PROTEIN,URINE DIPSTICK >=300 (NEGATIVE); URINE UROBILINOGEN 0.2 mg/dL (0.2 - 1)
[2021-09-18 04:52] LABS: BACTERIA,URINE MODERATE /HPF; EPITHELIAL CELLS,URINE FEW /LPF
[2021-09-18] MEDS: HYDROCODONE/APAP 5MG-325MG TAB PO PRN ×3 (04:55→17:11)
[2021-09-18 06:45] LABS: BASOPHILS # (AUTO) 0.1 (0.0-0.1); BASOPHILS % 0.7 % (0.0-1.0); EOSINOPHILS # (AUTO) 0.2 (0.0-0.4); EOSINOPHILS % 2.3 % (0.0-6.0); HEMATOCRIT 32.8 % (38.2-49.6); HEMOGLOBIN 9.6 g/dL (14.0-18.0); LYMPHOCYTES # (AUTO) 1.8 (1.0-3.2); MEAN CORPUSCULAR HEMOGLOBIN 27.2 pg (28-32); MEAN CORPUSCULAR HGB CONC 29.3 g/dL (31-35); MEAN CORPUSCULAR VOLUME 92.9 fL (81-99); MONOCYTES # (AUTO) 0.7 (0.2-0.8); MONOCYTES % 7.8 % (4.4-11.3); NEUTROPHILS # (AUTO) 5.5 (2.1-6.9); NEUTROPHILS % 66.7 % (38.7-80.0); PLATELET COUNT 178 x10e3/uL (140-360); RED BLOOD COUNT 3.53 x10e6/uL (4.3-5.7); RED CELL DISTRIBUTION WIDTH 15.2 % (11.7-14.4)
[2021-09-18 07:12] LABS: ANION GAP 13.8 mmol/L (8-16); CREATININE, SERUM 2.46 mg/dL (0.72-1.25); POTASSIUM 3.8 mmol/L (3.5-5.1)
[2021-09-18 07:35] LABS: CHOL/HDL RATIO 5.7 (3.9-4.7)
[2021-09-18 08:37] LABS: CREATINE KINASE MB 2.2 ng/mL (0-5.0)
[2021-09-18] MEDS: ISOSORBIDE DINITRATE 20 MG TAB PO SCH ×3 (08:45→20:35)
[2021-09-18] MEDS: HYDRALAZINE HCL 25 MG TAB PO SCH ×3 (08:45→20:35)
[2021-09-18] MEDS ORDERED: CARVEDILOL 12.5 MG TAB PO SCH (09:00)
[2021-09-18] MEDS ORDERED: NIFEDIPINE CR 30 MG TAB PO SCH (09:00)
[2021-09-18] MEDS ORDERED: CLOPIDOGREL BISULFATE 75 MG TAB PO ONE (11:00)
[2021-09-18] MEDS: FENOFIBRATE 145 MG TAB PO SCH (12:28)
[2021-09-18 14:33] LABS: CREATINE KINASE MB 2.3 ng/mL (0-5.0)
[2021-09-18] MEDS: LABETALOL HCL 200 MG TAB PO SCH ×2 (15:27→20:35)
[2021-09-18] MEDS: IRON SUCROSE 100 MG in SODIUM CHLORIDE 0.9% 100 ML 100 ML IV SCH (16:44)
[2021-09-18] MEDS ORDERED: ACETYLCYSTEINE 20% INHAL SOLN 30 ML VIAL PO SCH ×2 (17:00→19:14)
[2021-09-18] MEDS ORDERED: ACETYLCYSTEINE 200 MG/ML 4ML VIAL PO SCH (20:30)
[2021-09-18] MEDS: ATORVASTATIN 40 MG TAB PO SCH (20:35)
[2021-09-19] VITALS (12 sets, daily range): BP systolic 144–175; BP diastolic 60–79
[2021-09-19] MEDS: HYDROCODONE/APAP 5MG-325MG TAB PO PRN ×2 (00:08→07:20)
[2021-09-19] MEDS: SODIUM CHLORIDE 0.9% 1000ML 1,000 ML IV SCH ×2 (05:32→15:00)
[2021-09-19 05:39] LABS: BASOPHILS # (AUTO) 0.1 (0.0-0.1); BASOPHILS % 0.6 % (0.0-1.0); EOSINOPHILS # (AUTO) 0.2 (0.0-0.4); EOSINOPHILS % 2.5 % (0.0-6.0); HEMATOCRIT 31.5 % (38.2-49.6); HEMOGLOBIN 9.3 g/dL (14.0-18.0); LYMPHOCYTES # (AUTO) 1.5 (1.0-3.2); LYMPHOCYTES % 16.9 % (18.0-39.1); MEAN CORPUSCULAR HEMOGLOBIN 27.1 pg (28-32); MEAN CORPUSCULAR HGB CONC 29.5 g/dL (31-35); MEAN CORPUSCULAR VOLUME 91.8 fL (81-99); MONOCYTES # (AUTO) 0.6 (0.2-0.8); MONOCYTES % 7.1 % (4.4-11.3); NEUTROPHILS # (AUTO) 6.5 (2.1-6.9); NEUTROPHILS % 72.6 % (38.7-80.0); PLATELET COUNT 184 x10e3/uL (140-360); RED BLOOD COUNT 3.43 x10e6/uL (4.3-5.7); RED CELL DISTRIBUTION WIDTH 15.1 % (11.7-14.4)
[2021-09-19 06:03] LABS: ALBUMIN 2.8 g/dL (3.5-5.0); ANION GAP 10.9 mmol/L (8-16); CALCIUM 8.6 mg/dL (8.4-10.2); CREATININE, SERUM 2.15 mg/dL (0.72-1.25); POTASSIUM 3.9 mmol/L (3.5-5.1)
[2021-09-19 06:29] LABS: THYROID STIMULATING HORMONE 1.019 uIU/mL (0.350-4.940)
[2021-09-19] MEDS: ISOSORBIDE DINITRATE 20 MG TAB PO SCH ×3 (08:32→22:06)
[2021-09-19] MEDS: FENOFIBRATE 145 MG TAB PO SCH (08:37)
[2021-09-19] MEDS: LABETALOL HCL 200 MG TAB PO SCH ×3 (08:37→22:07)
[2021-09-19] MEDS: HYDRALAZINE HCL 25 MG TAB PO SCH ×3 (08:37→22:06)
[2021-09-19] MEDS: ACETYLCYSTEINE 200 MG/ML 4ML VIAL PO SCH ×2 (08:56→16:04)
[2021-09-19] MEDS ORDERED: CLOPIDOGREL BISULFATE 75 MG TAB PO SCH (09:00)
[2021-09-19] MEDS ORDERED: ACETYLCYSTEINE 200 MG/ML 4ML VIAL PO SCH (09:00)
[2021-09-19] MEDS ORDERED: IOPAMIDOL 370 MG/ML 100 ML INFUS..BTL INJ ONE (11:11)
[2021-09-19] MEDS ORDERED: HEPARIN SOD/SOD CHLORIDE 2,000 ML ONE (11:11)
[2021-09-19] MEDS ORDERED: SODIUM CHLORIDE 0.9% 1000ML 1,000 ML ONE (11:12)
[2021-09-19] MEDS ORDERED: VERAPAMIL HCL 2.5 MG/ML 2 ML VIAL ONE (11:16)
[2021-09-19] MEDS ORDERED: MIDAZOLAM HCL 2 MG/2 ML VIAL ONE (11:21)
[2021-09-19] MEDS ORDERED: FENTANYL CITRATE/PF 100MCG/2 ML INJ ONE (11:21)
[2021-09-19] MEDS ORDERED: BIVALRIUDIN 250 MG/VIAL VIAL IV ONE (11:44)
[2021-09-19] MEDS ORDERED: CLOPIDOGREL BISULFATE 75 MG TAB ONE (12:11)
[2021-09-19] MEDS ORDERED: ASPIRIN 325 MG TAB ONE (12:12)
[2021-09-19] MEDS ORDERED: SODIUM CHLORIDE 0.9% 1000ML 1,000 ML IV SCH (12:15)
[2021-09-19] MEDS: IRON SUCROSE 100 MG in SODIUM CHLORIDE 0.9% 100 ML 100 ML IV SCH (16:04)
[2021-09-19] MEDS: ATORVASTATIN 40 MG TAB PO SCH (22:06)
[2021-09-20] VITALS (8 sets, daily range): BP systolic 163–184; BP diastolic 67–77
[2021-09-20] MEDS: SODIUM CHLORIDE 0.9% 1000ML 1,000 ML IV SCH (01:00)
[2021-09-20] MEDS: HYDRALAZINE HCL 20 MG/ML VIAL IV PRN (02:06)
[2021-09-20] MEDS: ISOSORBIDE DINITRATE 20 MG TAB PO SCH ×3 (05:24→21:40)
[2021-09-20] MEDS: LABETALOL HCL 200 MG TAB PO SCH ×3 (05:24→21:40)
[2021-09-20] MEDS: HYDRALAZINE HCL 25 MG TAB PO SCH ×3 (05:24→21:39)
[2021-09-20] MEDS: CLONIDINE HCL 0.3MG/24 HR PATCH TD SCH (05:24)
[2021-09-20 06:10] LABS: BASOPHILS # (AUTO) 0.1 (0.0-0.1); BASOPHILS % 0.6 % (0.0-1.0); EOSINOPHILS # (AUTO) 0.2 (0.0-0.4); EOSINOPHILS % 2.3 % (0.0-6.0); HEMATOCRIT 32.7 % (38.2-49.6); HEMOGLOBIN 9.8 g/dL (14.0-18.0); LYMPHOCYTES # (AUTO) 1.2 (1.0-3.2); LYMPHOCYTES % 12.7 % (18.0-39.1); MEAN CORPUSCULAR HEMOGLOBIN 27.1 pg (28-32); MEAN CORPUSCULAR VOLUME 90.3 fL (81-99); MONOCYTES # (AUTO) 0.7 (0.2-0.8); MONOCYTES % 6.8 % (4.4-11.3); NEUTROPHILS # (AUTO) 7.4 (2.1-6.9); NEUTROPHILS % 77.3 % (38.7-80.0); PLATELET COUNT 172 x10e3/uL (140-360); RED BLOOD COUNT 3.62 x10e6/uL (4.3-5.7); RED CELL DISTRIBUTION WIDTH 15.2 % (11.7-14.4)
[2021-09-20 06:32] LABS: CALCIUM 8.7 mg/dL (8.4-10.2); CREATININE, SERUM 1.94 mg/dL (0.72-1.25)
[2021-09-20] MEDS ORDERED: NIFEDIPINE CR 30 MG TAB PO SCH ×2 (07:30→17:00)
[2021-09-20] MEDS: ASPIRIN 81 MG CHEW TAB PO SCH (09:30)
[2021-09-20] MEDS: CLOPIDOGREL BISULFATE 75 MG TAB PO SCH (09:30)
[2021-09-20] MEDS: FENOFIBRATE 145 MG TAB PO SCH (09:31)
[2021-09-20] MEDS ORDERED: FUROSEMIDE INJ 10 MG/ML 4 ML VIAL IV ONE (10:00)
[2021-09-20] MEDS: IRON SUCROSE 100 MG in SODIUM CHLORIDE 0.9% 100 ML 100 ML IV SCH (14:11)
[2021-09-20] MEDS: ATORVASTATIN 40 MG TAB PO SCH (21:40)
[2021-09-21 04:54] VITALS: BP 169/74
[2021-09-21 04:57] LABS: BASOPHILS % 0.5 % (0.0-1.0); EOSINOPHILS # (AUTO) 0.2 (0.0-0.4); EOSINOPHILS % 2.6 % (0.0-6.0); HEMATOCRIT 35.8 % (38.2-49.6); HEMOGLOBIN 10.2 g/dL (14.0-18.0); LYMPHOCYTES # (AUTO) 1.5 (1.0-3.2); LYMPHOCYTES % 19.9 % (18.0-39.1); MEAN CORPUSCULAR HEMOGLOBIN 27.3 pg (28-32); MEAN CORPUSCULAR HGB CONC 28.5 g/dL (31-35); MEAN CORPUSCULAR VOLUME 95.7 fL (81-99); MONOCYTES # (AUTO) 0.7 (0.2-0.8); MONOCYTES % 8.8 % (4.4-11.3); NEUTROPHILS % 67.8 % (38.7-80.0); PLATELET COUNT 180 x10e3/uL (140-360); RED BLOOD COUNT 3.74 x10e6/uL (4.3-5.7); RED CELL DISTRIBUTION WIDTH 15.4 % (11.7-14.4)
[2021-09-21 05:13] VITALS: BP 170/76
[2021-09-21 06:00] LABS: ANION GAP 11.9 mmol/L (8-16); CREATININE, SERUM 2.05 mg/dL (0.72-1.25); MAGNESIUM 1.7 MG/DL (1.3-2.1); POTASSIUM 3.9 mmol/L (3.5-5.1)
[2021-09-21] MEDS: HYDRALAZINE HCL 20 MG/ML VIAL IV PRN (06:38)
[2021-09-21 08:00] VITALS: BP 192/85
[2021-09-21 08:44] VITALS: BP 192/85
[2021-09-21] MEDS ORDERED: FUROSEMIDE 40 MG TAB PO SCH (09:00)
[2021-09-21] MEDS: HYDRALAZINE HCL 25 MG TAB PO SCH ×2 (09:50→15:24)
[2021-09-21] MEDS: ASPIRIN 81 MG CHEW TAB PO SCH (09:50)
[2021-09-21] MEDS: ISOSORBIDE DINITRATE 20 MG TAB PO SCH ×2 (09:51→15:24)
[2021-09-21] MEDS: CLOPIDOGREL BISULFATE 75 MG TAB PO SCH (09:51)
[2021-09-21] MEDS: LABETALOL HCL 200 MG TAB PO SCH ×2 (09:52→15:24)
[2021-09-21] MEDS: FENOFIBRATE 145 MG TAB PO SCH (09:52)
[2021-09-21] MEDS ORDERED: NIFEDIPINE CR 30 MG TAB PO ONE (10:00)
[2021-09-21 12:30] VITALS: BP 163/74
[2021-09-21] MEDS ORDERED: ONDANSETRON HCL 4 MG ORAL DISINTEGRATING TAB PO PRN (14:30)
[2021-09-21] MEDS ORDERED: NIFEDIPINE ER30 M1 PO (14:50)
[2021-09-21] MEDS ORDERED: NIFEDIPINE CR 30 MG TAB PO SCH (17:00)
[2021-09-21 17:21] VITALS: BP 154/74
== END 2021-09-21 17:48 | disposition home or self-care (01) | DRG 247 ==
LOC: ER 14:04 → INTOOBSV 15:14 → ERHOLD 15:14 → MED/SURG2 15:59 → OBSVTOIN 09-19 16:18
PROVIDERS: ADMIT Internal Medicine; ATTEND Internal Medicine
PROC: 027035Z Dilation of Coronary Artery, One Artery with Two Drug-eluting Intraluminal Devices, Percutaneous Approach (ICD-10-PCS; principal; 2021-09-19)
PROC: B240ZZ3 Ultrasonography of Single Coronary Artery, Intravascular (ICD-10-PCS; 2021-09-19)
PROC: 4A023N7 Measurement of Cardiac Sampling and Pressure, Left Heart, Percutaneous Approach (ICD-10-PCS; 2021-09-19)
PROC: B2111ZZ Fluoroscopy of Multiple Coronary Arteries using Low Osmolar Contrast (ICD-10-PCS; 2021-09-19)
PROC: B2151ZZ Fluoroscopy of Left Heart using Low Osmolar Contrast (ICD-10-PCS; 2021-09-19)
DX: I25.110 Atherosclerotic heart disease of native coronary artery with unstable angina pectoris (principal); Z68.43 Body mass index [BMI] 50.0-59.9, adult; I13.10 Hypertensive heart and chronic kidney disease without heart failure, with stage 1 through stage 4 chronic kidney disease, or unspecified chronic kidney disease; I25.10 Atherosclerotic heart disease of native coronary artery without angina pectoris; K21.9 Gastro-esophageal reflux disease without esophagitis; E78.5 Hyperlipidemia, unspecified; E66.01 Morbid (severe) obesity due to excess calories; E11.22 Type 2 diabetes mellitus with diabetic chronic kidney disease; N18.30 Chronic kidney disease, stage 3 unspecified; Z95.5 Presence of coronary angioplasty implant and graft; I25.2 Old myocardial infarction; Z82.49 Family history of ischemic heart disease and other diseases of the circulatory system; D50.9 Iron deficiency anemia, unspecified; E11.42 Type 2 diabetes mellitus with diabetic polyneuropathy; K74.60 Unspecified cirrhosis of liver; J44.9 Chronic obstructive pulmonary disease, unspecified; I16.0 Hypertensive urgency; G47.33 Obstructive sleep apnea (adult) (pediatric); Z79.4 Long term (current) use of insulin; Z20.822 Contact with and (suspected) exposure to COVID-19
CPT/HCPCS: 36415; 71045; 80048; 80053; 80061; 81001; 82550; 82553; 82948; 83036; 83540; 83735; 83880; 84443; 84466; 84484; 85025; 85610; 85730; 87086; 92928; 92978; 93005; 93306; 93458; 94660; 94799; 99152; 99153; 99284; C1725; C1753; C1769; C1874; C1876; C1887; G0378; J0360; J0583; J1650; J1756; J1940; J2250; J2270; J2405; J3010; J7030; Q9967; U0002

== ENCOUNTER 2021-11-05 09:27 | Emergency (ER) | payer BC, OTHER ==
[~2021-11-05] VITALS: Ht 170.2 cm; Wt 127.5 kg
[2021-11-05] MEDS ORDERED: DEXAMETHASONE SOD PHOS 10 MG/1 ML VIAL IM ONE (10:00)
[2021-11-05] MEDS ORDERED: ACETAMINOPHEN-1 EAC4 PO (10:04)
[2021-11-05] MEDS ORDERED: ONDANSETRON ODT4 MG PO (10:04)
[2021-11-05] MEDS ORDERED: DEXAMETHASONE SOD PHOS INJ 4 MG/ML SDV ONE (10:12)
[2021-11-05] MEDS ORDERED: CLONIDINE HCL 0.1 MG TAB ONE (10:12)
[2021-11-05] MEDS ORDERED: HYDROCODONE/APAP 5MG-325MG TAB PO ONE (10:15)
[2021-11-05] MEDS ORDERED: ONDANSETRON HCL 4 MG ORAL DISINTEGRATING TAB PO ONE (10:15)
[2021-11-05] MEDS ORDERED: CLONIDINE HCL 0.2 MG TAB PO ONE (10:30)
== END 2021-11-05 10:40 | disposition home or self-care (01) ==
LOC: FSED 09:48
DX: M10.371 Gout due to renal impairment, right ankle and foot (principal); E11.65 Type 2 diabetes mellitus with hyperglycemia; N28.9 Disorder of kidney and ureter, unspecified; I16.0 Hypertensive urgency; Z85.89 Personal history of malignant neoplasm of other organs and systems; Z95.5 Presence of coronary angioplasty implant and graft
CPT/HCPCS: 82948; 96372; 99283; J1100; Q0162

== ENCOUNTER 2022-08-27 15:55 | Emergency (ER) | payer OTHER ==
[~2022-08-27] VITALS: Ht 170.2 cm; Wt 127.5 kg
[~2022-08-27 15:55] MED LIST changes: +ACETAMINOPHEN-1 EAC4 PO; +ONDANSETRON ODT4 MG PO
[2022-08-27] MEDS ORDERED: BACITRACIN ZINC 0.9GM TP ONE ×2 (16:38→16:39)
== END 2022-08-27 16:54 | disposition home or self-care (01) ==
LOC: FSED 16:41
DX: S30.821A Blister (nonthermal) of abdominal wall, initial encounter (principal); R50.9 Fever, unspecified; I12.9 Hypertensive chronic kidney disease with stage 1 through stage 4 chronic kidney disease, or unspecified chronic kidney disease; E11.22 Type 2 diabetes mellitus with diabetic chronic kidney disease; N18.9 Chronic kidney disease, unspecified; E78.5 Hyperlipidemia, unspecified; I25.10 Atherosclerotic heart disease of native coronary artery without angina pectoris; K21.9 Gastro-esophageal reflux disease without esophagitis; M10.9 Gout, unspecified; I25.2 Old myocardial infarction; Z85.840 Personal history of malignant neoplasm of eye
CPT/HCPCS: 99282

== ENCOUNTER 2024-09-04 08:07 | Emergency (ER) | payer MEDICARE, OTHER ==
[~2024-09-04] VITALS: Ht 170.2 cm; Wt 108.9 kg
[~2024-09-04 08:07] MED LIST changes: +ALLOPURINOL100 MG PO; +ATORVASTATIN CA40 MG PO; +CLONIDINE HCL0.1 MG PO; +CLONIDINE HCL0.2 MG PO; +CLOPIDOGREL75 MG PO; +DULOXETINE HCL60 MG PO; +FUROSEMIDE20 MG PO; +HYDRALAZINE HC100 MG PO; +ISOSORBIDE MON120 MG PO; +K DUR10 MEQ PO; +NIFEDIPINE ER90 MG PO; +OZEMPIC1 MG/0.71 SQ; +PREGABALIN100 MG PO; +ULTRAM 50MG50 MG PO
[2024-09-04 08:19] VITALS: TEMP 97.7
[2024-09-04 08:31] LABS: BASOPHILS % 0.4 % (0.0-1.0); HEMATOCRIT 41.4 % (38.2-49.6); HEMOGLOBIN 13.8 g/dL (14.0-18.0); LYMPHOCYTES # (AUTO) 1.6 (1.0-3.2); LYMPHOCYTES % 23.7 % (18.0-39.1); MEAN CORPUSCULAR HEMOGLOBIN 31.2 pg (28-32); MEAN CORPUSCULAR HGB CONC 33.3 g/dL (31-35); MEAN CORPUSCULAR VOLUME 93.7 fL (81-99); MONOCYTES # (AUTO) 0.6 (0.2-0.8); MONOCYTES % 8.5 % (4.4-11.3); NEUTROPHILS # (AUTO) 4.5 (2.1-6.9); PLATELET COUNT 193 x10e3/uL (140-360); RED BLOOD COUNT 4.42 x10e6/uL (4.3-5.7); RED CELL DISTRIBUTION WIDTH 14.5 % (11.7-14.4); WHITE BLOOD COUNT 6.71 x10e3/uL (4.8-10.8)
[2024-09-04 09:03] LABS: ALBUMIN 4.2 g/dL (3.5-5.0); ALBUMIN/GLOBULIN RATIO 1.2 (0.8-2.0); ANION GAP 23.3 mmol/L (8-16); BILIRUBIN,TOTAL 0.7 mg/dL (0.2-1.2); CALCIUM 7.7 mg/dL (8.4-10.2); CREATININE, SERUM 9.38 mg/dL (0.72-1.25); POTASSIUM 4.3 mmol/L (3.5-5.1); TOTAL PROTEIN 7.7 g/dL (6.5-8.1)
[2024-09-04 09:09] LABS: CORONAVIRUS COVID-19 AG NEGATIVE (NEGATIVE); INFLUENZA A AG NEGATIVE (NEGATIVE); INFLUENZA B AG NEGATIVE (NEGATIVE)
[2024-09-04 09:13] VITALS: PULSE 62; RESP 17; O2SAT 96
[2024-09-04 09:14] LABS: TROPONIN I 0.024 ng/mL (0-0.300)
[2024-09-04 10:16] LABS: CLARITY,URINE SL CLOUDY (CLEAR); COLOR,URINE YELLOW (YELLOW); PH,URINE 5.5 (5 - 7)
[2024-09-04 10:17] LABS: BILIRUBIN,URINE MODERATE (NEGATIVE); GLUCOSE, URINE NEGATIVE (NEGATIVE); KETONES,URINE TRACE (NEGATIVE); LEUKOCYTE ESTERASE ,URINE TRACE (NEGATIVE); NITRITE,URINE NEGATIVE (NEGATIVE); PROTEIN,URINE DIPSTICK >=300 (NEGATIVE); URINE UROBILINOGEN 0.2 mg/dL (0.2 - 1)
[2024-09-04 10:38] LABS: BACTERIA,URINE MANY /HPF; EPITHELIAL CELLS,URINE FEW /LPF; RBC,URINE 0-5 /HPF (0-5); RENAL EPITHELIAL CELLS,URINE RARE; WBC,URINE (MAN) 21-50 /HPF (0-5)
[2024-09-04] MEDS ORDERED: CEFDINIR300 MG PO (11:23)
== END 2024-09-04 12:27 | disposition home or self-care (01) ==
LOC: ER 08:17
DX: R10.30 Lower abdominal pain, unspecified (principal); N39.0 Urinary tract infection, site not specified; R11.2 Nausea with vomiting, unspecified; I12.9 Hypertensive chronic kidney disease with stage 1 through stage 4 chronic kidney disease, or unspecified chronic kidney disease; E11.22 Type 2 diabetes mellitus with diabetic chronic kidney disease; E11.65 Type 2 diabetes mellitus with hyperglycemia; N18.9 Chronic kidney disease, unspecified; K21.9 Gastro-esophageal reflux disease without esophagitis; F32.A Depression, unspecified; E78.5 Hyperlipidemia, unspecified; G47.30 Sleep apnea, unspecified; Z11.52 Encounter for screening for COVID-19; Z85.840 Personal history of malignant neoplasm of eye
CPT/HCPCS: 36415; 71045; 74177; 80053; 81001; 83690; 84484; 85025; 87086; 99284

== ENCOUNTER 2024-12-08 07:26 | Inpatient (IN) | payer MEDICARE ==
[2024-12-08] VITALS (11 sets, daily range): BP systolic 168–227; BP diastolic 64–97; PULSE 65–84; RESP 18–22; TEMP 97.8–100.4; O2SAT 75–100
[~2024-12-08] VITALS: Ht 170.2 cm; Wt 117.9 kg
[~2024-12-08 07:26] MED LIST changes: +CEFDINIR300 MG PO
[2024-12-08] MEDS ORDERED: SODIUM CHLORIDE FLUSH 10 ML SYR IV PRN (07:45)
[2024-12-08] MEDS: NITROGLYCERIN 2% OINT 1 GM PKT TOP ONE (07:51)
[2024-12-08 08:04] LABS: BASOPHILS % 0.8 % (0.0-1.0); EOSINOPHILS % 1.0 % (0.0-6.0); LYMPHOCYTES % 16.6 % (18.0-39.1); MONOCYTES % 7.2 % (4.4-11.3); NEUTROPHILS % 74.1 % (38.7-80.0); RED CELL DISTRIBUTION WIDTH 13.9 % (11.7-14.4)
[2024-12-08 08:32] LABS: EST GLOMERULAR FILTRATION RATE 5.0 ML/MIN (>=60)
[2024-12-08] MEDS: NICARDIPINE 20MG/200ML PREMIX 200 ML IV SCH (08:39)
[2024-12-08] MEDS ORDERED: SODIUM CHLORIDE FLUSH 10 ML SYR INJ PRN (09:00)
[2024-12-08] MEDS: MUPIROCIN 2% OINT 22 GM TUBE TOP SCH (10:49)
[2024-12-08] MEDS ORDERED: CLONIDINE HCL 0.1 MG TAB PO PRN (11:00)
[2024-12-08] MEDS: ASPIRIN 81 MG CHEW TAB PO STA (11:36)
[2024-12-08] MEDS: HYDRALAZINE HCL 25 MG TAB PO SCH ×2 (11:36→22:37)
[2024-12-08] MEDS: NITROGLYCERIN 2% OINT 1 GM PKT TOP SCH (13:18)
[2024-12-08] MEDS ORDERED: DEXTROSE 50% SYRINGE 50 ML IV PRN (15:15)
[2024-12-08] MEDS ORDERED: POTASSIUM CHLORIDE 20 MEQ TAB CR PO PRN (15:15)
[2024-12-08] MEDS ORDERED: ALBUTEROL/IPRATROPIUM 3 ML NEB NEB PRN (15:15)
[2024-12-08] MEDS ORDERED: DIPHENHYDRAMINE HCL 25 MG CAP PO PRN (15:15)
[2024-12-08] MEDS ORDERED: ONDANSETRON HCL INJ 2MG/ML 2ML 2 MG/ML VIAL IV PRN (15:15)
[2024-12-08] MEDS ORDERED: BENZONATATE 100 MG CAP PO PRN (15:15)
[2024-12-08] MEDS ORDERED: DOCUSATE SODIUM 100 MG CAP PO PRN (15:15)
[2024-12-08] MEDS: LABETALOL HCL 200 MG TAB PO SCH (15:15)
[2024-12-08] MEDS ORDERED: LIDOCAINE 4% PATCH TP PRN (15:15)
[2024-12-08] MEDS ORDERED: ACETAMINOPHEN 325 MG TAB PO PRN (15:15)
[2024-12-08] MEDS ORDERED: SIMETHICONE 80 MG CHEW PO PRN (15:15)
[2024-12-08] MEDS ORDERED: Doxycycline IV 100 MG in SODIUM CHLORIDE 0.9% 100 ML IV SCH (15:45)
[2024-12-08] MEDS ORDERED: MELATONIN 5 MG TABLET PO PRN (21:00)
[2024-12-08] MEDS: CLONIDINE HCL 0.1 MG TAB PO SCH (22:36)
[2024-12-08] MEDS: Doxycycline IV 100 MG in SODIUM CHLORIDE 0.9% 100 ML IV SCH (22:36)
[2024-12-09] VITALS (14 sets, daily range): BP systolic 119–173; BP diastolic 58–73; PULSE 61–73; RESP 15–20; TEMP 96.9–99.1; O2SAT 92–100
[2024-12-09 05:13] LABS: HEPATITIS B SURFACE AB QUANT 54.8
[2024-12-09 05:14] LABS: HEPATITIS B CORE AB TOTAL Negative; HEPATITIS B SURFACE AG (P) Negative
[2024-12-09 06:50] LABS: BASOPHILS % 0.6 % (0.0-1.0); EOSINOPHILS % 1.2 % (0.0-6.0); LYMPHOCYTES % 14.0 % (18.0-39.1); MONOCYTES % 7.7 % (4.4-11.3); NEUTROPHILS % 76.1 % (38.7-80.0); RED CELL DISTRIBUTION WIDTH 14.1 % (11.7-14.4)
[2024-12-09 07:28] LABS: EST GLOMERULAR FILTRATION RATE 8.0 ML/MIN (>=60)
[2024-12-09 07:48] LABS: CHOL/HDL RATIO 6.7 (3.9-4.7); LDL CHOLESTEROL 111.0 MG/DL (60-130)
[2024-12-09 08:07] LABS: PHOSPHORUS 5.5 MG/DL (2.3-4.7)
[2024-12-09] MEDS ORDERED: ASPIRIN 81 MG CHEW TAB PO SCH (09:00)
[2024-12-09] MEDS: ASPIRIN 81 MG ENTERIC COATED PO SCH (09:08)
[2024-12-09] MEDS: ISOSORBIDE MONONITRATE 30 MG TAB CR PO SCH (09:09)
[2024-12-09] MEDS: ALLOPURINOL 100 MG TAB PO SCH (09:11)
[2024-12-09] MEDS: DULOXETINE HCL 30 MG DELAYED RELEASE PO SCH (09:12)
[2024-12-09] MEDS: LOSARTAN POTASSIUM 25 MG TAB PO SCH (09:12)
[2024-12-09] MEDS: BUPROPION HCL 150 MG TABCR PO SCH (09:12)
[2024-12-09] MEDS: CLOPIDOGREL BISULFATE 75 MG TAB PO SCH (09:13)
[2024-12-09] MEDS: PANTOPRAZOLE SOD 40 MG TABEC PO SCH (09:13)
[2024-12-09] MEDS: ATORVASTATIN 40 MG TAB PO SCH (09:13)
[2024-12-09] MEDS ORDERED: HYDROCODONE/APAP 5MG-325MG TAB PO PRN (12:00)
[2024-12-09] MEDS ORDERED: ONDANSETRON HCL INJ 2MG/ML 2ML 2 MG/ML VIAL IV PRN (12:00)
[2024-12-09] MEDS ORDERED: ALBUMIN 25% 12.5GM 0.25 GM/ML BTL IV PRN (17:30)
[2024-12-09] MEDS ORDERED: SODIUM CHLORIDE 0.9% 1000ML 2,000 ML IV PRN (17:30)
[2024-12-09] MEDS: LIDOCAINE HCL 2% LOCAL 20 ML VIAL ONE (19:42)
[2024-12-09] MEDS: HEPARIN SOD (PORCINE) 1000 UNIT/ML 30ML ONE (19:42)
[2024-12-09] MEDS: HEPARIN SOD/SOD CHLORIDE 2,000 ML ONE (19:42)
[2024-12-09] MEDS: MIDAZOLAM HCL 2 MG/2 ML VIAL ONE (19:42)
[2024-12-09] MEDS: FENTANYL CITRATE/PF 100MCG/2 ML INJ ONE (19:42)
[2024-12-09] MEDS: NITROGLYCERIN/D5W 200 MCG/ML 250 ML ONE (19:42)
[2024-12-09] MEDS: BIVALRIUDIN 250 MG/VIAL VIAL IV ONE (19:42)
[2024-12-09] MEDS: SODIUM CHLORIDE 0.9% 1000ML 1,000 ML ONE (19:42)
[2024-12-09] MEDS: IOPAMIDOL 370 MG/ML 100 ML INFUS..BTL INJ ONE ×2 (19:42→19:43)
[2024-12-09] MEDS: CLOPIDOGREL BISULFATE 75 MG TAB ONE ×2 (19:43)
[2024-12-10] VITALS (12 sets, daily range): BP systolic 141–185; BP diastolic 47–86; PULSE 55–67; RESP 18–22; TEMP 97.3–98; O2SAT 96–100
[2024-12-10 06:42] LABS: BASOPHILS % 0.9 % (0.0-1.0); EOSINOPHILS % 1.5 % (0.0-6.0); LYMPHOCYTES % 12.6 % (18.0-39.1); MONOCYTES % 10.1 % (4.4-11.3); NEUTROPHILS % 74.7 % (38.7-80.0); RED CELL DISTRIBUTION WIDTH 14.1 % (11.7-14.4)
[2024-12-10 07:10] LABS: EST GLOMERULAR FILTRATION RATE 9.0 ML/MIN (>=60)
[2024-12-10] MEDS: CLOPIDOGREL BISULFATE 75 MG TAB PO SCH (09:00)
[2024-12-10] MEDS: HYDRALAZINE HCL 25 MG TAB PO SCH (09:45)
[2024-12-10] MEDS: LOSARTAN POTASSIUM 25 MG TAB PO SCH (11:52)
[2024-12-10] MEDS: CARVEDILOL 12.5 MG TAB PO SCH (15:48)
[2024-12-10] MEDS ORDERED: CARVEDILOL 12.5 MG TAB PO SCH (17:00)
[2024-12-11] VITALS (8 sets, daily range): BP systolic 141–192; BP diastolic 62–83; PULSE 55–74; RESP 18–22; TEMP 97.1–98.1; O2SAT 96–99
[2024-12-11] MEDS: HYDRALAZINE HCL 20 MG/ML VIAL IV PRN (06:36)
[2024-12-11] MEDS: HYDRALAZINE HCL 25 MG TAB PO SCH (09:00)
[2024-12-11] MEDS: CLONIDINE HCL 0.1 MG TAB PO SCH ×2 (09:00→15:24)
== END 2024-12-11 17:42 | disposition home or self-care (01) | DRG 321 ==
LOC: ER 07:30 → ERHOLD 09:02 → MED/SURG2 12:30
PROVIDERS: ADMIT Internal Medicine; ATTEND Internal Medicine
PROC: 5A1D70Z Performance of Urinary Filtration, Intermittent, Less than 6 Hours Per Day (ICD-10-PCS; 2024-12-08)
PROC: 027035Z Dilation of Coronary Artery, One Artery with Two Drug-eluting Intraluminal Devices, Percutaneous Approach (ICD-10-PCS; principal; 2024-12-09)
PROC: 4A023N7 Measurement of Cardiac Sampling and Pressure, Left Heart, Percutaneous Approach (ICD-10-PCS; 2024-12-09)
PROC: B2111ZZ Fluoroscopy of Multiple Coronary Arteries using Low Osmolar Contrast (ICD-10-PCS; 2024-12-09)
PROC: B2151ZZ Fluoroscopy of Left Heart using Low Osmolar Contrast (ICD-10-PCS; 2024-12-09)
PROC: 5A1D70Z Performance of Urinary Filtration, Intermittent, Less than 6 Hours Per Day (ICD-10-PCS; 2024-12-09)
PROC: 5A1D70Z Performance of Urinary Filtration, Intermittent, Less than 6 Hours Per Day (ICD-10-PCS; 2024-12-10)
DX: I25.110 Atherosclerotic heart disease of native coronary artery with unstable angina pectoris (principal); I50.33 Acute on chronic diastolic (congestive) heart failure; N18.6 End stage renal disease; J18.9 Pneumonia, unspecified organism; I13.2 Hypertensive heart and chronic kidney disease with heart failure and with stage 5 chronic kidney disease, or end stage renal disease; Z68.41 Body mass index [BMI] 40.0-44.9, adult; I16.0 Hypertensive urgency; E11.22 Type 2 diabetes mellitus with diabetic chronic kidney disease; Z79.85 Long-term (current) use of injectable non-insulin antidiabetic drugs; I25.2 Old myocardial infarction; Z95.5 Presence of coronary angioplasty implant and graft; D63.1 Anemia in chronic kidney disease; Z99.2 Dependence on renal dialysis; G47.33 Obstructive sleep apnea (adult) (pediatric); J44.9 Chronic obstructive pulmonary disease, unspecified; E78.00 Pure hypercholesterolemia, unspecified; E66.01 Morbid (severe) obesity due to excess calories; K74.60 Unspecified cirrhosis of liver; Z85.840 Personal history of malignant neoplasm of eye; Z79.899 Other long term (current) drug therapy; Z79.82 Long term (current) use of aspirin; Z79.02 Long term (current) use of antithrombotics/antiplatelets
CPT/HCPCS: 36415; 70450; 71045; 76937; 80053; 80061; 82948; 83036; 83735; 84100; 84443; 84484; 85025; 86704; 86706; 87040; 87086; 87340; 92920; 93005; 93458; 94760; 94799; 99152; 99153; 99284; C1725; C1760; C1766; C1769; C1874; C1887; J0360; J0583; J0696; J1644; J2003; J2250; J2470; J7030; J7050; Q9967

== ENCOUNTER 2025-01-11 00:02 | Inpatient (IN) | payer MEDICARE ==
[~2025-01-11] VITALS: Ht 170.2 cm; Wt 112.2 kg
[2025-01-11] VITALS (28 sets, daily range): BP systolic 102–159; BP diastolic 51–98; PULSE 51–122; RESP 12–25; TEMP 97.6–98.6; O2SAT 88–100
[2025-01-11] MEDS ORDERED: ONDANSETRON HCL INJ 2MG/ML 2ML 2 MG/ML VIAL IV STA (00:15)
[2025-01-11 00:27] LABS: BASOPHILS % 0.7 % (0.0-1.0); EOSINOPHILS % 0.7 % (0.0-6.0); LYMPHOCYTES % 27.0 % (18.0-39.1); MONOCYTES % 9.3 % (4.4-11.3); NEUTROPHILS % 61.9 % (38.7-80.0); RED CELL DISTRIBUTION WIDTH 13.9 % (11.7-14.4)
[2025-01-11 00:37] LABS: INR 0.87
[2025-01-11 00:46] LABS: EST GLOMERULAR FILTRATION RATE 8.0 ML/MIN (>=60)
[2025-01-11] MEDS: Morphine 4mg INJECTION 4 MG/ML INJ IV ONE (01:00)
[2025-01-11] MEDS: METOPROLOL TARTRATE INJ 1 MG/ML VIAL IV ONE (01:00)
[2025-01-11] MEDS: METOPROLOL TARTRATE 25 MG TAB PO ONE (01:01)
[2025-01-11] MEDS ORDERED: Morphine 4mg INJECTION 4 MG/ML INJ IV PRN (02:00)
[2025-01-11] MEDS ORDERED: DEXTROSE 50% SYRINGE 50 ML IV PRN ×2 (02:00→14:00)
[2025-01-11] MEDS ORDERED: PROMETHAZINE HCL (IM) 25 MG/ML VIAL IM PRN (02:00)
[2025-01-11] MEDS: DILTIAZEM HCL 60 MG TAB PO SCH (02:20)
[2025-01-11] MEDS ORDERED: SEVELAMER CARB800 MG PO (03:02)
[2025-01-11] MEDS ORDERED: LABETALOL HCL200 MG PO (03:02)
[2025-01-11] MEDS ORDERED: FUROSEMIDE80 MG PO (03:02)
[2025-01-11] MEDS: INSULIN REGULAR, HUMAN 100 UNIT/1 ML SQ SCH (06:34)
[2025-01-11] MEDS: APIXABAN 5 MG TABLET PO SCH (08:02)
[2025-01-11] MEDS: CLOPIDOGREL BISULFATE 75 MG TAB PO SCH (08:02)
[2025-01-11] MEDS ORDERED: APIXABAN 5 MG TABLET PO SCH (09:00)
[2025-01-11] MEDS ORDERED: CLONIDINE HCL 0.1 MG TAB PO PRN (09:15)
[2025-01-11] MEDS: METOPROLOL TARTRATE 50 MG TAB PO SCH (09:30)
[2025-01-11] MEDS ORDERED: ALBUTEROL/IPRATROPIUM 3 ML NEB NEB PRN (14:00)
[2025-01-11] MEDS ORDERED: ACETAMINOPHEN 325 MG TAB PO PRN (14:00)
[2025-01-11] MEDS ORDERED: MELATONIN 5 MG TABLET PO PRN (14:00)
[2025-01-11] MEDS ORDERED: SIMETHICONE 80 MG CHEW PO PRN (14:00)
[2025-01-11] MEDS ORDERED: HYDRALAZINE HCL 20 MG/ML VIAL IV PRN (14:00)
[2025-01-11] MEDS ORDERED: DOCUSATE SODIUM 100 MG CAP PO PRN (14:00)
[2025-01-11] MEDS ORDERED: DIPHENHYDRAMINE HCL 25 MG CAP PO PRN (14:00)
[2025-01-11] MEDS ORDERED: LIDOCAINE 4% PATCH TP PRN (14:00)
[2025-01-11] MEDS ORDERED: POTASSIUM CHLORIDE 20 MEQ TAB CR PO PRN (14:00)
[2025-01-11] MEDS ORDERED: BENZONATATE 100 MG CAP PO PRN (14:00)
[2025-01-11] MEDS: AMIODARONE HCL 200 MG TAB PO SCH (17:46)
[2025-01-11] MEDS ORDERED: NITROGLYCERIN0.4 MG SL (19:03)
[2025-01-12 03:00] VITALS: BP 146/65; PULSE 58; RESP 18; TEMP 97.9; O2SAT 100
[2025-01-12 03:05] VITALS: PULSE 58; RESP 16; O2SAT 100
[2025-01-12 05:48] LABS: BASOPHILS % 0.9 % (0.0-1.0); EOSINOPHILS % 1.7 % (0.0-6.0); LYMPHOCYTES % 21.9 % (18.0-39.1); MONOCYTES % 7.8 % (4.4-11.3); NEUTROPHILS % 67.2 % (38.7-80.0); RED CELL DISTRIBUTION WIDTH 14.0 % (11.7-14.4)
[2025-01-12 06:16] LABS: PHOSPHORUS 8.7 MG/DL (2.3-4.7)
[2025-01-12 06:19] LABS: CHOL/HDL RATIO 8.5 (3.9-4.7); EST GLOMERULAR FILTRATION RATE 6.0 ML/MIN (>=60); LDL CHOLESTEROL 128.0 MG/DL (60-130)
[2025-01-12 08:00] VITALS: BP 136/63; PULSE 67; RESP 18; TEMP 98.2; O2SAT 97
[2025-01-12 08:48] VITALS: BP 136/63; PULSE 67; RESP 18; TEMP 98.2; O2SAT 97
[2025-01-12] MEDS: SEVELAMER CARBONATE 800 MG TAB PO SCH (09:12)
[2025-01-12] MEDS: PANTOPRAZOLE SOD 40 MG TABEC PO SCH (09:12)
[2025-01-12] MEDS: AMIODARONE HCL 200 MG TAB PO SCH (09:13)
[2025-01-12] MEDS: ISOSORBIDE MONONITRATE 30 MG TAB CR PO SCH (09:14)
[2025-01-12] MEDS: LOSARTAN POTASSIUM 25 MG TAB PO SCH (09:14)
[2025-01-12] MEDS: DULOXETINE HCL 30 MG DELAYED RELEASE PO SCH (09:14)
[2025-01-12] MEDS: METOPROLOL SUCCINATE 50 MG TAB XL PO SCH (09:15)
[2025-01-12] MEDS: ATORVASTATIN 40 MG TAB PO SCH (09:15)
[2025-01-12] MEDS: BUPROPION HCL 150 MG TABCR PO SCH (09:16)
[2025-01-12] MEDS ORDERED: SODIUM CHLORIDE 0.9% 1000ML 2,000 ML IV PRN (11:00)
[2025-01-12] MEDS ORDERED: ALBUMIN 25% 12.5GM 0.25 GM/ML BTL IV PRN (11:00)
[2025-01-12 13:00] VITALS: BP 149/81; PULSE 67; RESP 20; TEMP 97.2; O2SAT 99
== END 2025-01-12 16:00 | disposition home or self-care (01) | DRG 308 ==
LOC: ER 00:10 → ERHOLD 02:03 → ICU 02:30 → IMCU 23:38
PROVIDERS: ADMIT Internal Medicine; ATTEND Internal Medicine
DX: I48.91 Unspecified atrial fibrillation (principal); N18.6 End stage renal disease; I13.2 Hypertensive heart and chronic kidney disease with heart failure and with stage 5 chronic kidney disease, or end stage renal disease; I48.92 Unspecified atrial flutter; Z99.2 Dependence on renal dialysis; I50.9 Heart failure, unspecified; E11.22 Type 2 diabetes mellitus with diabetic chronic kidney disease; I25.2 Old myocardial infarction; I25.10 Atherosclerotic heart disease of native coronary artery without angina pectoris; Z95.5 Presence of coronary angioplasty implant and graft; E78.5 Hyperlipidemia, unspecified; J44.9 Chronic obstructive pulmonary disease, unspecified; Z87.891 Personal history of nicotine dependence; E66.9 Obesity, unspecified; Z68.38 Body mass index [BMI] 38.0-38.9, adult; G47.33 Obstructive sleep apnea (adult) (pediatric); Z79.4 Long term (current) use of insulin; F32.A Depression, unspecified; Z85.840 Personal history of malignant neoplasm of eye; Z79.899 Other long term (current) drug therapy; Z79.02 Long term (current) use of antithrombotics/antiplatelets; Z79.01 Long term (current) use of anticoagulants
CPT/HCPCS: 36415; 71045; 80053; 80061; 82550; 82948; 83036; 83735; 83880; 84100; 84443; 84484; 85025; 85610; 85730; 93005; 94799; 96372; 99284; J2270; J2470

== ENCOUNTER 2025-02-06 10:15 | Emergency (ER) | payer MEDICARE ==
[~2025-02-06 10:15] MED LIST changes: +FUROSEMIDE80 MG PO; +NITROGLYCERIN0.4 MG SL; +SEVELAMER CARB800 MG PO
[2025-02-06 10:39] VITALS: RESP 18
[2025-02-06 10:58] LABS: BASOPHILS % 1.0 % (0.0-1.0); EOSINOPHILS % 2.0 % (0.0-6.0); LYMPHOCYTES % 18.6 % (18.0-39.1); MONOCYTES % 9.5 % (4.4-11.3); NEUTROPHILS % 68.5 % (38.7-80.0); RED CELL DISTRIBUTION WIDTH 14.5 % (11.7-14.4)
[2025-02-06] MEDS ORDERED: SODIUM CHLORIDE FLUSH 10 ML SYR IV PRN (11:00)
[2025-02-06 11:30] LABS: EST GLOMERULAR FILTRATION RATE 6.0 ML/MIN (>=60); INR 1.07
[2025-02-06] MEDS: SODIUM CHLORIDE 0.9% 1000ML 1,000 ML IV ONE (12:18)
[2025-02-06 12:52] VITALS: PULSE 61; TEMP 98.4
[2025-02-06] MEDS ORDERED: IOPAMIDOL 370 MG/ML 100 ML INFUS..BTL INJ ONE (13:58)
[2025-02-06] MEDS: SODIUM CHLORIDE 0.9% 500ML 500 ML IV ONE (14:54)
[2025-02-06 15:20] VITALS: BP 126/58; PULSE 56; RESP 17; O2SAT 98
== END 2025-02-06 16:38 | disposition short-term general hospital (02) ==
LOC: ER 10:48
DX: R42 Dizziness and giddiness (principal); G45.9 Transient cerebral ischemic attack, unspecified; I95.9 Hypotension, unspecified; I10 Essential (primary) hypertension; E11.65 Type 2 diabetes mellitus with hyperglycemia; G47.30 Sleep apnea, unspecified; I25.2 Old myocardial infarction; Z95.5 Presence of coronary angioplasty implant and graft; Z85.840 Personal history of malignant neoplasm of eye
CPT/HCPCS: 36415; 70450; 70496; 70498; 71045; 80053; 82948; 83880; 84484; 85025; 85610; 85730; 93005; 94760; 99284; J7030; J7040; Q9967